=== PATIENT | male | born 1960 | race Caucasian/White ===

== ENCOUNTER → 2018-05-05 14:54 | Outpatient (CLI) | payer BC, SELFPAY ==
[2018-05-05 15:36] LABS: Absolute Lymphocyte Count 1.82 X10^3/ul (0.83-4.51); Absolute Neutrophil Count 4.4 X10^3/uL (2.0-7.7); Basophil# 0.03 X10^3/uL; Basophil% 0.4 % (0-1); Eosinophil# 0.08 X10^3/uL; Eosinophils% 1.1 % (0-5); Hematocrit 45.1 % (40-54); Hemoglobin 15.3 g/dl (13.0-16.5); Lymphocyte # 1.82 X10^3/ul (4.0); Mean Corp Hgb Conc 33.9 g/gl (32-36); Mean Corpuscular Hgb 31.7 pg (27.0-32.0); Mean Corpuscular Volume 93.4 fL (80-94); Mean Platelet Vol. 10.2 fl (6.2-12.0); Monocyte# 0.67 X10^3/uL; Monocyte% 9.6 % (0-10); Neutrophil # 4.39 X10^3/uL (2.7-7.7); Neutrophil % 62.8 % (47-70); Platelet Count 328 K/mm3 (150-450); RBC Distribution Width CV 12.6 % (11.6-14.6); RBC Distribution Width SD 43.2 fl (35.1-43.9); Red Blood Count 4.83 M/mm3 (4.6-6.2)
[2018-05-05 15:38] LABS: POSITIVE COUNT NO; POSITIVE DIFFERENTIAL NO; POSITIVE MORPHOLOGY NO
[2018-05-05 15:43] LABS: ALB/GLOB Ratio 0.9 RATIO (0.9-2.4); AST(SGOT) 102 U/L (15-37); Alanine Aminotransfer ALT/SGPT 111 U/L (16-61); Albumin, Serum 3.6 g/dL (3.2-5.0); Alkaline Phosphatase 121 U/L (45-117); Anion Gap 9 (5-15); BUN 9 mg/dL (7-18); Chloride 105 mmol/L (98-107); EST Glomerular Filtration Rate 83 mL/min (>60); Est Glom Filt Rate - Afr Amer 100 mL/min (>60); Globulin 4.1 g/dL (2.2-4.2); Glucose 103 mg/dL (74-106); Potassium 3.8 mmol/L (3.5-5.1); Protein, Total 7.7 g/dL (6.4-8.2); Sodium Level 139 mmol/L (136-145)
--- OUTSIDE RECORDS SUMMARY | 2018-06-21 12:16 | XMS RPT_ITS ---
:1960 Author Organization [facility] Care Team Providers Name Role Phone Aashish Arcos Attending Unavailable Lida Crenshaw Primary Care Unavailable Aashish Arcos Attending Unavailable Aashish Arcos Referring Unavailable Lida Crenshaw Primary Care Unavailable PROBLEMS PROBLEMS DATE TYPE CONDITION / CODE ATTENDING STATUS SOURCE 05/06/2018 Unknown 562.11 - Aashish Arcos Diverticulitis of E Community colon (without Hospital mention of Repository hemorrhage) / 562.11(ICD-9) 05/06/2018 Unknown K57.92 - Aashish Arcos Diverticulitis of E [facility] intestine, part Hospital unspecified, without Repository perforation or abscess without bleeding / K57.92(ICD-10) PROCEDURES PROCEDURES No Procedure Records FoundRESULTS RESULTS ABDOMEN/PELVIS WITH Observed: 05/05/2018 Status: F Source: [place] CONTR[facility] 3:36 PM [facility] REPOSITORY [facility] Imaging Services [address] [place] [address] Abdomen/Pelvis WITH Contrast MR#: [id number] Acct: [id number] Name: MEEKA CARDONA Rep #: [id number] : 1960 M 58 From: Leni Lay MD PCP: Lida Crenshaw MD Status: REG CLI Study: Abdomen/Pelvis WITH Contrast Date of Exam: 05/05/18 Exam# [id number] Ordering Dr: Aashish Arcos MD STUDY: CT ABDOMEN AND PELVIS WITH CONTRAST REASON FOR EXAM: Male, 58 years old. Lower abdominal pain. RADIATION DOSAGE (If Supplied By Facility): CTDIvol = ( 10.80 ) mGy, DLP = ( 1128.41 ) mGycm TECHNIQUE: Transaxial images were obtained from the dome of the diaphragm to the symphysis pubis without oral contrast. 100 ml of Isovue 300 contrast was administered. Sagittal and coronal images were reconstructed. Individualized dose optimization techniques were used for this CT. COMPARISON: None. FINDINGS: The visualized lung bases are unremarkable. The visualized portions of the heart are within normal limits. Normal liver. Normal gallbladder and extrahepatic biliary system. There is a benign calcified granuloma of the spleen. Normal pancreas. Subcentimeter cyst of the right kidney. Negative for hydronephrosis or evidence of ureteral stones. Multiple subcentimeter cysts of the left kidney. Negative for hydronephrosis or evidence of ureteral stones. Normal right adrenal gland. Normal left adrenal gland. Normal visualized stomach. Normal small intestine. Normal colon. The appendix is visualized and appears normal. There is diffuse atherosclerotic calcification of the abdominal aorta, without a demonstrated aneurysm. Normal inferior vena cava. Normal retroperitoneum. Normal urinary bladder. Small fatty right inguinal hernia. Minimal fatty umbilical hernia. Normal osseous structures. CT/Abdomen/Pelvis WITH Contrast IMPRESSION: No acute bowel related findings. Negative for evidence of obstruction, perforation or inflammatory bowel changes. There is no diverticulosis or diverticulitis. A normal appendix is identified. Subcentimeter simple renal cysts bilaterally. Otherwise normal sized kidneys without hydronephrosis. Unremarkable liver spleen pancreas and a nondistended gallbladder. Electronically Signed: Leni Lay MD at 19:12 EST , Service support , CC: Lida Crenshaw MD; Aashish Arcos MD Sprinkler Fitter: Signed CBC W/DIFF, AUTOMATED Collected: 05/05/2018 Status: F Source: [place] 3:03 PM [facility] TYPE CODE TESTS RESULT OUT OF RANGE REFERENCE UNITS LAB L100.1000 4.4-11.0 K/mm3 Normal WBC 7.0 LAB L100.1200 4.6-6.2 M/mm3 Normal RBC 4.83 LAB L100.1300 13.0-16.5 g/dl Normal HGB 15.3 LAB L100.1400 40-54 % Normal HCT 45.1 LAB L100.1500 80-94 fL Normal MCV 93.4 LAB L100.1600 27.0-32.0 pg Normal MCH 31.7 LAB L100.1700 32-36 g/gl Normal MCHC 33.9 LAB L100.1810 11.6-14.6 % Normal RDW CV 12.6 LAB L100.1820 35.1-43.9 fl Normal RDW SD 43.2 LAB L100.1900 150-450 K/mm3 Normal PLT 328 LAB L100.2000 6.2-12.0 fl Normal MPV 10.2 LAB L100.2100 47-70 % Normal NEUT% 62.8 LAB L100.2200 19-41 % Normal LY% 26.0 LAB L100.2300 0-10 % Normal MONO% 9.6 LAB L100.2400 0-5 % Normal EO% 1.1 LAB L100.2500 0-1 % Normal BASO% 0.4 LAB L100.2550 0.0-0.9 % Normal IM GRAN % 0.100 Result Comment: IG% - Immature Granulocytes (promyelocytes, myelocytes and metamyelocytes) > 1% indicates that a LEFT SHIFT is Present. LAB L100.2620 2.0-7.7 X10 3/uL Normal Absolute Neut 4.4 LAB L100.2720 0.83-4.51 X10 3/ul Normal Absolute Lymph 1.82 Performed By: #### L100.0100, L500.4050 #### [facility] [address] [place], [address] COMPREHENSIVE METABOLIC Collected: 05/05/2018 Status: F Source: [place] 3:03 PM [facility] TYPE CODE TESTS RESULT OUT OF RANGE REFERENCE UNITS LAB L501.0100 74-106 mg/dL Normal GLU 103 Result Comment: Fasting Glucose result from 100 to 125 mg/dL suggests IMPAIRED HOMEOSTASIS per A.D.A. criteria. Please note revised GLUCOSE reference range effective 2017. LAB L501.1000 7-18 mg/dL Normal BUN 9 LAB L501.1100 0.70-1.30 mg/dL Normal CREAT,SERUM 1.00 Result Comment: The validity of the calculated GFR AND GFRAA in patients over 70 years has not been determined. Clinical correlation is essential. LAB L501.1110 >60 mL/min Normal EST GFR 83 Result Comment: Non- GFR Calc LAB L501.1115 >60 mL/min Normal EST GFR - AA 100 Result Comment: GFR Calc LAB L501.1300 10-20 RATIO Low BUN/CRE 9.0 LAB L501.1500 6.4-8.2 g/dL Normal T PROT 7.7 LAB L501.1800 3.2-5.0 g/dL Normal ALB 3.6 LAB L501.1950 2.2-4.2 g/dL Normal GLOB 4.1 LAB L501.2000 0.9-2.4 RATIO Normal A/G 0.9 LAB L501.2200 8.5-10.1 mg/dL Normal CA 9.0 LAB L501.4100 15-37 U/L High AST 102 LAB L501.4305 45-117 U/L High ALK P 121 LAB L501.4405 16-61 U/L High ALT 111 LAB L501.4600 0.20-1.00 mg/dL Normal T BILI 0.70 LAB L501.5300 136-145 mmol/L Normal NA 139 LAB L501.5600 3.5-5.1 mmol/L Normal K 3.8 LAB L501.5900 98-107 mmol/L Normal CL 105 LAB L501.6100 21.0-32.0 mmol/L Normal CO2 25.0 LAB L501.6200 5-15 Normal GAP 9 Performed By: #### L100.0100, L500.4050 #### [facility] [address] [place], [address] ALLERGIES ALLERGIES DATE TYPE / CODE NAME / CODE REACTION SEVERITY SOURCE 12/01/2013 Drug No Known Unknown [facility] Allergy/4160 Allergies/F00 Hospital 53455(SNOMED 6494284(RXNOR Repository CT) M) ENCOUNTERS ENCOUNTERS ADMIT/DISCHARGE ACCOUNT ADMITTING ENCOUNTER LOCATION SOURCE NUMBER CLASS 05/05/2018 [id number] Ambulatory [place] 8 [facility] ing:CT Repository 05/05/2018 [id number] Amb[place] 1 [facility] ing:MFPLAB Repository PAYERS PAYERS ENCOUNTER GUARANTOR PAYER SUBSCRIBER SOURCE 05/05/2018 EMEKA Mccain Primary BETHANY [id number] Insurance:[facility]: [facility] y Number: [id number] [id number] Repository [address]Kfs: (330) Date:7042-64-49[phone] () [id number], [place] [address]FM: 05/05/2018 Secondary NOT GIVENUNK [place] Insurance:SELF PAY [facility] Number: Effective Repository Date:2018-05-05 05/05/2018 EMEKA Mccain Primary BETHANY Song [id number] Insurance:[facility]: [facility] y Number: [id number] [id number] Repository [address]Yva: (330) Date:4025-52-45[phone] () [id number], [place] [address]IW: 05/05/2018 Secondary NOT GIVENUNK [place] Insurance:SELF PAY [facility] Number: Effective Repository Date:2018-05-05
== END ==
PROVIDERS: Family Provider Family Medicine; PCP Family Medicine; Visit Provider Family Medicine
DX: K57.92 Diverticulitis of intestine, part unspecified, without perforation or abscess without bleeding (principal)
CPT/HCPCS: 36415; 80053; 85025

== ENCOUNTER → 2018-05-05 15:24 | Outpatient (CLI) | payer BC, SELFPAY ==
[2013-12-01 17:41] VITALS: BMI 33.0
--- NOTE | 2018-05-05 15:36 | CT_ITS ---
STUDY: CT ABDOMEN AND PELVIS WITH CONTRAST REASON FOR EXAM: Male, 58 years old. Lower abdominal pain. RADIATION DOSAGE (If Supplied By Facility): CTDIvol = ( 10.80 ) mGy, DLP = ( 1128.41 ) mGycm TECHNIQUE: Transaxial images were obtained from the dome of the diaphragm to the symphysis pubis without oral contrast. 100 ml of Isovue 300 contrast was administered. Sagittal and coronal images were reconstructed. Individualized dose optimization techniques were used for this CT. COMPARISON: None. FINDINGS: The visualized lung bases are unremarkable. The visualized portions of the heart are within normal limits. Normal liver. Normal gallbladder and extrahepatic biliary system. There is a benign calcified granuloma of the spleen. Normal pancreas. Subcentimeter cyst of the right kidney. Negative for hydronephrosis or evidence of ureteral stones. Multiple subcentimeter cysts of the left kidney. Negative for hydronephrosis or evidence of ureteral stones. Normal right adrenal gland. Normal left adrenal gland. Normal visualized stomach. Normal small intestine. Normal colon. The appendix is visualized and appears normal. There is diffuse atherosclerotic calcification of the abdominal aorta, without a demonstrated aneurysm. Normal inferior vena cava. Normal retroperitoneum. Normal urinary bladder. Small fatty right inguinal hernia. Minimal fatty umbilical hernia. Normal osseous structures. CT/Abdomen/Pelvis WITH Contrast IMPRESSION: No acute bowel related findings. Negative for evidence of obstruction, perforation or inflammatory bowel changes. There is no diverticulosis or diverticulitis. A normal appendix is identified. Subcentimeter simple renal cysts bilaterally. Otherwise normal sized kidneys without hydronephrosis. Unremarkable liver spleen pancreas and a nondistended gallbladder. Electronically Signed: Leni Lay MD at 19:12 EST , Service support ,
--- OUTSIDE RECORDS SUMMARY | 2018-06-21 12:53 | XMS RPT_ITS ---
[...] K57.92 - Aashish Arcos Diverticulitis of E [facility] intestine, part Hospital unspecified, without Repository perforation or abscess without bleeding / K57.92(ICD-10) PROCEDURES PROCEDURES No Procedure Records FoundRESULTS RESULTS ABDOMEN/PELVIS WITH Observed: 05/05/2018 Status: F Source: [place] [facility] 3:36 PM [facility] RE[facility]IT[facility] Imaging Services [address] [place] [address] Abdomen/Pelvis WITH Contrast MR#: [id number] Acct: [id number] Name: EMEKA CARDONA Rep #: [id number] : 1960 M 58 From: Leni Lay MD PCP: Lida Crenshaw MD Status: REG CLI Study: Abdomen/Pelvis WITH Contrast Date of Exam: 05/05/18 Exam# [id number] Ordering Dr: Aashish Arcos MD STUDY: CT [...] CC: Lida Crenshaw MD; Aashish Arcos MD Nurse First Aid: Signed CBC W/DIFF, AUTOMATED Collected: 05/05/2018 Status: [...] 1.82 Performed By: #### L100.0100, L500.4050 #### [facility] [address] [place], [address] COMPREHENSIVE METABOLIC Collected: 05/05/2018 Status: [...] 9 Performed By: #### L100.0100, L500.4050 #### [facility] [address] [place], [address] ALLERGIES ALLERGIES DATE TYPE / CODE NAME / CODE REACTION SEVERITY SOURCE 12/01/2013 Drug No Known Unknown [facility] Allergy/4160 Allergies/F00 Hospital 83909(SNOMED 6463256(RXNOR Repository CT) M) ENCOUNTERS ENCOUNTERS ADMIT/DISCHARGE ACCOUNT ADMITTING ENCOUNTER LOCATION SOURCE NUMBER CLASS 05/05/2018 [id number] Ambulatory [place] Krystal 8 [facility] ing:CT Repository 05/05/2018 [id number] Amb[place] 1 [facility] ing:MFPLAB Repository PAYERS PAYERS ENCOUNTER GUARANTOR PAYER SUBSCRIBER SOURCE 05/05/2018 EMEKA Mccain Primary BETHANY [id number] Insurance:[facility]: [facility] y Number: [id number] [id number] Repository [address]Nvr: (330) Date:[id number] [phone] () [id number], [place] [address]PX: 05/05/2018 Secondary NOT GIVENUNK [place] Insurance:SELF PAY [facility] Number: Effective Repository Date:2018-05-05 05/05/2018 EMEKA Mccain Primary BETHANY Song [id number] Insurance:[facility]: [facility] y Number: [id number] [id number] Repository [address]Gnv: (330) Date:6357-54-11[phone] () [id number], [place] [address]UL: 05/05/2018 Secondary NOT GIVENUNK [place] Insurance:SELF PAY [facility] Number: Effective Repository Date:2018-05-05
== END ==
PROVIDERS: Family Provider Family Medicine; PCP Family Medicine; Referring Provider Family Medicine; Visit Provider Family Medicine
DX: K57.92 Diverticulitis of intestine, part unspecified, without perforation or abscess without bleeding (principal)
CPT/HCPCS: 74177; Q9967

== ENCOUNTER → 2019-02-24 08:16 | Outpatient (CLI) | payer BC, SELFPAY ==
[2019-02-24 10:34] LABS: Anion Gap 9 (5-15); BUN 17 mg/dL (7-18); BUN/Creat Ratio 13.4 RATIO (10-20); Calcium,Total 8.8 mg/dL (8.5-10.1); Chloride 104 mmol/L (98-107); Creatinine, Serum 1.27 mg/dL (0.70-1.30); EST Glomerular Filtration Rate 62 mL/min (>60); Est Glom Filt Rate - Afr Amer 75 mL/min (>60); Glucose 100 mg/dL (74-106); Potassium 3.5 mmol/L (3.5-5.1); Sodium Level 138 mmol/L (136-145)
== END ==
PROVIDERS: Family Provider Family Medicine; PCP Family Medicine; Referring Provider Family Medicine; Visit Provider Family Medicine
DX: I10 Essential (primary) hypertension (principal)
CPT/HCPCS: 36415; 80048

== ENCOUNTER → 2019-08-14 11:26 | Outpatient (CLI) | payer BC, SELFPAY ==
[2013-12-01 17:41] VITALS: BMI 33.0
[2019-08-14 12:56] LABS: Absolute Lymphocyte Count 1.66 X10^3/uL (0.83-4.51); Absolute Neutrophil Count 4.6 X10^3/uL (2.0-7.7); Basophil# 0.04 X10^3/uL; Basophil% 0.6 % (0-1); Eosinophil# 0.17 X10^3/uL; Eosinophils% 2.4 % (0-5); Hematocrit 42.9 % (40-54); Hemoglobin 14.9 g/dL (13.0-16.5); Lymphocyte # 1.66 X10^3/ul (4.0); Lymphocyte % 23.5 % (19-41); Mean Corp Hgb Conc 34.7 g/dL (32-36); Mean Corpuscular Hgb 31.9 pg (27.0-32.0); Mean Corpuscular Volume 91.9 fL (80-94); Monocyte# 0.61 X10^3/uL; Monocyte% 8.6 % (0-10); NRBC Flagged by Analyzer 0 % (0-5); Neutrophil # 4.56 X10^3/uL (2.7-7.7); Neutrophil % 64.5 % (47-70); Platelet Count 307 K/mm3 (150-450); RBC Distribution Width CV 12.9 % (11.6-14.6); RBC Distribution Width SD 42.5 fl (35.1-43.9); Red Blood Count 4.67 M/mm3 (4.6-6.2); White Blood Count 7.1 K/mm3 (4.4-11.0)
[2019-08-14 13:39] LABS: Anion Gap 8 (5-15); BUN 18 mg/dL (7-18); BUN/Creat Ratio 16.7 RATIO (10-20); Calcium,Total 9.1 mg/dL (8.5-10.1); Chloride 104 mmol/L (98-107); Cholesterol 247 mg/dL (200); Creatinine, Serum 1.08 mg/dL (0.70-1.30); EST Glomerular Filtration Rate 75 mL/min (>60); Est Glom Filt Rate - Afr Amer 91 mL/min (>60); Glucose 86 mg/dL (74-106); High Density Lipoprotein 44 mg/dL; Potassium 3.6 mmol/L (3.5-5.1); Sodium Level 136 mmol/L (136-145); Triglycerides 140 mg/dL; Very Low Density Lipoprotein 28 mg/dL (5-40)
== END ==
PROVIDERS: PCP Family Medicine; Referring Provider Family Medicine; Visit Provider Family Medicine
DX: Z00.00 Encounter for general adult medical examination without abnormal findings (principal); I10 Essential (primary) hypertension; K21.9 Gastro-esophageal reflux disease without esophagitis
CPT/HCPCS: 36415; 80048; 80061; 84153; 85025; G0103

== ENCOUNTER → 2019-10-27 09:16 | Outpatient (CLI) | payer BC, SELFPAY ==
[2013-12-01 17:41] VITALS: BMI 33.0
[2019-10-27 12:30] LABS: Absolute Lymphocyte Count 1.29 X10^3/uL (0.83-4.51); Absolute Neutrophil Count 5.6 X10^3/uL (2.0-7.7); Basophil# 0.02 X10^3/uL; Basophil% 0.3 % (0-1); Eosinophil# 0.13 X10^3/uL; Eosinophils% 1.7 % (0-5); Hematocrit 38.4 % (40-54); Hemoglobin 13.2 g/dL (13.0-16.5); Lymphocyte # 1.29 X10^3/ul (4.0); Mean Corp Hgb Conc 34.4 g/dL (32-36); Mean Corpuscular Volume 93.2 fL (80-94); Mean Platelet Vol. 10.3 fl (6.2-12.0); Monocyte# 0.54 X10^3/uL; Monocyte% 7.1 % (0-10); NRBC Flagged by Analyzer 0 % (0-5); Neutrophil % 73.6 % (47-70); Platelet Count 321 K/mm3 (150-450); RBC Distribution Width CV 12.4 % (11.6-14.6); RBC Distribution Width SD 42.1 fl (35.1-43.9); Red Blood Count 4.12 M/mm3 (4.6-6.2); White Blood Count 7.6 K/mm3 (4.4-11.0)
[2019-10-27 13:09] LABS: Anion Gap 10 (5-15); BUN 13 mg/dL (7-18); BUN/Creat Ratio 11.4 RATIO (10-20); Chloride 101 mmol/L (98-107); Cholesterol 160 mg/dL (200); Creatinine, Serum 1.14 mg/dL (0.70-1.30); EST Glomerular Filtration Rate 70 mL/min (>60); Est Glom Filt Rate - Afr Amer 85 mL/min (>60); Glucose 115 mg/dL (74-106); High Density Lipoprotein 42 mg/dL; Potassium 3.5 mmol/L (3.5-5.1); Sodium Level 135 mmol/L (136-145); Triglycerides 194 mg/dL; Very Low Density Lipoprotein 39 mg/dL (5-40)
== END ==
PROVIDERS: PCP Family Medicine; Referring Provider Family Medicine; Visit Provider Family Medicine
DX: I10 Essential (primary) hypertension (principal); K21.9 Gastro-esophageal reflux disease without esophagitis
CPT/HCPCS: 36415; 80048; 80061; 85025

== ENCOUNTER → 2020-06-11 09:53 | Outpatient (CLI) | payer BC, SELFPAY ==
[2013-12-01 17:41] VITALS: BMI 33.0
[2020-06-11 12:23] LABS: Anion Gap 9 (5-15); BUN 14 mg/dL (7-18); BUN/Creat Ratio 11.5 RATIO (10-20); Calcium,Total 8.8 mg/dL (8.5-10.1); Chloride 106 mmol/L (98-107); Creatinine, Serum 1.22 mg/dL (0.70-1.30); EST Glomerular Filtration Rate 65 mL/min (>60); Est Glom Filt Rate - Afr Amer 78 mL/min (>60); Glucose 86 mg/dL (74-106); Potassium 3.8 mmol/L (3.5-5.1); Sodium Level 138 mmol/L (136-145)
== END ==
PROVIDERS: PCP Family Medicine; Referring Provider Family Medicine; Visit Provider Family Medicine
DX: I10 Essential (primary) hypertension (principal)
CPT/HCPCS: 36415; 80048

== ENCOUNTER 2020-08-08 14:27 | Outpatient (RCR) | payer BC, SELFPAY ==
[2013-12-01 17:41] VITALS: BMI 33.0
[2020-08-08] MEDS: COVID-19 VACC, MRNA(PFIZER)/PF 30 MCG/0.3 ML SYRINGE IM (09:54)
[2020-08-29] MEDS: COVID-19 VACC, MRNA(PFIZER)/PF 30 MCG/0.3 ML SYRINGE IM (09:24)
== END 2020-08-08 23:59 ==
LOC: IMMUN 14:27
PROVIDERS: PCP Family Medicine; Visit Provider Family Medicine
DX: Z23 Encounter for immunization (principal)
CPT/HCPCS: 0001A; 0002A; 91300

== ENCOUNTER → 2020-12-10 11:35 | Outpatient (CLI) | payer BC, SELFPAY ==
[2013-12-01 17:41] VITALS: BMI 33.0
[2020-12-10 15:50] LABS: AST(SGOT) 32 U/L (15-37); Alanine Aminotransfer ALT/SGPT 38 U/L (16-61); Anion Gap 9 (5-15); BUN 16 mg/dL (7-18); BUN/Creat Ratio 13.3 RATIO (10-20); Calcium,Total 8.8 mg/dL (8.5-10.1); Chloride 102 mmol/L (98-107); Cholesterol 165 mg/dL (200); EST Glomerular Filtration Rate 66 mL/min (>60); Est Glom Filt Rate - Afr Amer 80 mL/min (>60); Glucose 93 mg/dL (74-106); High Density Lipoprotein 47 mg/dL; Magnesium 1.9 mg/dL (1.6-2.6); PSA,Total - Annual Screen 0.42 ng/mL (0.00-4.00); Potassium 3.7 mmol/L (3.5-5.1); Sodium Level 133 mmol/L (136-145); Triglycerides 172 mg/dL; Very Low Density Lipoprotein 34 mg/dL (5-40)
== END ==
PROVIDERS: PCP Family Medicine; Visit Provider Family Medicine
DX: Z00.00 Encounter for general adult medical examination without abnormal findings (principal); I10 Essential (primary) hypertension; K21.9 Gastro-esophageal reflux disease without esophagitis; E78.5 Hyperlipidemia, unspecified
CPT/HCPCS: 36415; 80048; 80061; 83735; 84153; 84450; 84460; G0103

== ENCOUNTER → 2020-12-11 12:12 | Outpatient (CLI) | payer BC, SELFPAY ==
[2013-12-01 17:41] VITALS: BMI 33.0
[2020-12-11 15:43] LABS: Microalbumin,Random Urine < 5.0 mg/L (NO RANGE EST.)
== END ==
PROVIDERS: PCP Family Medicine; Visit Provider Family Medicine
DX: I10 Essential (primary) hypertension (principal)
CPT/HCPCS: 82043; 82570

== ENCOUNTER → 2021-04-11 | Outpatient (CLI) | payer BC, SELFPAY | END | disposition home or self-care (01) | PROVIDERS: PCP Family Medicine; Visit Provider Family Medicine | DX: R05.9 Cough, unspecified (principal) | CPT/HCPCS: 87635; U0005; U0003 ==

== ENCOUNTER → 2021-12-15 | Outpatient (CLI) | payer BC, SELFPAY ==
[2021-12-15 12:28] LABS: AST(SGOT) 52 U/L (15-37); Alanine Aminotransfer ALT/SGPT 40 U/L (16-61); Anion Gap 11 (5-15); BUN 31 mg/dL (7-18); BUN/Creat Ratio 18.5 RATIO (10-20); Calcium,Total 9.2 mg/dL (8.5-10.1); Chloride 104 mmol/L (98-107); Cholesterol 180 mg/dL (200); Creatinine, Serum 1.68 mg/dL (0.70-1.30); EST Glomerular Filtration Rate 45 mL/min (>60); Est Glom Filt Rate - Afr Amer 54 mL/min (>60); Glucose 110 mg/dL (74-106); High Density Lipoprotein 50 mg/dL; Sodium Level 138 mmol/L (136-145); Triglycerides 197 mg/dL; Very Low Density Lipoprotein 39 mg/dL (5-40)
== END | disposition home or self-care (01) ==
LOC: MFPLAB 10:22
PROVIDERS: PCP Family Medicine; Referring Provider Family Medicine; Visit Provider Family Medicine
DX: Z00.00 Encounter for general adult medical examination without abnormal findings (principal); E78.5 Hyperlipidemia, unspecified; I10 Essential (primary) hypertension
CPT/HCPCS: 36415; 80048; 80061; 84450; 84460

== ENCOUNTER → 2022-12-22 | Outpatient (CLI) | payer BC, SELFPAY ==
[2022-12-22 12:27] LABS: AST(SGOT) 23 U/L (15-37); Alanine Aminotransfer ALT/SGPT 19 U/L (16-61); Anion Gap 5 (5-15); BUN 16 mg/dL (7-18); BUN/Creat Ratio 11.7 RATIO (10-20); Calcium,Total 8.7 mg/dL (8.5-10.1); Chloride 108 mmol/L (98-107); Cholesterol 134 mg/dL (200); Creatinine, Serum 1.37 mg/dL (0.70-1.30); EST Glomerular Filtration Rate 56 mL/min (>60); Est Glom Filt Rate - Afr Amer 68 mL/min (>60); Glucose 99 mg/dL (74-106); High Density Lipoprotein 44 mg/dL; PSA,Total - Annual Screen 0.38 ng/mL (0.00-4.00); Sodium Level 137 mmol/L (136-145); Triglycerides 100 mg/dL; Very Low Density Lipoprotein 20 mg/dL (5-40)
== END | disposition home or self-care (01) ==
PROVIDERS: PCP Family Medicine; Visit Provider Family Medicine
DX: Z12.5 Encounter for screening for malignant neoplasm of prostate (principal); E78.5 Hyperlipidemia, unspecified; I10 Essential (primary) hypertension
CPT/HCPCS: 36415; 80048; 80061; 84153; 84450; 84460; G0103

== ENCOUNTER 2023-02-09 18:34 | Observation (INO) | payer BC, SELFPAY ==
[2023-02-09] VITALS (8 sets, daily range): BP systolic 131–150; BP diastolic 63–83; PULSE 92–106; RESP 17–25; TEMP 36.3–37; O2SAT 96–99; BMI 42.1; BMI 42.6
--- NOTE | 2023-02-09 18:47 | EKG12_ITS ---
Test Reason : SOB Blood Pressure : / mmHG Vent. Rate : 098 BPM Atrial Rate : 098 BPM P-R Int : 172 ms QRS Dur : 082 ms QT Int : 344 ms P-R-T Axes : 047 012 000 degrees QTc Int : 439 ms Normal sinus rhythm Nonspecific ST abnormality Abnormal ECG Confirmed by JOVI OAKLEY, JASPAL ([id number]), design editor PASTORA FINNEGAN ([id number]) on 02/15/2023 2:07:14 PM Referred By: Confirmed By:ZUNILDA ESPANA MD
[2023-02-09 19:55] LABS: Absolute Lymphocyte Count 1.53 X10^3/uL (0.83-4.51); Absolute Neutrophil Count 6.8 X10^3/uL (2.0-7.7); Basophil# 0.03 X10^3/uL; Basophil% 0.3 % (0-1); Eosinophil# 0.17 X10^3/uL; Eosinophils% 1.9 % (0-5); Lymphocyte # 1.53 X10^3/ul (0.83-4.51); Lymphocyte % 16.7 % (19-41); Mean Corp Hgb Conc 26.8 g/dL (32-36); Mean Corpuscular Hgb 17.9 pg (27.0-32.0); Mean Corpuscular Volume 66.9 fL (80-94); Mean Platelet Vol. 8.9 fl (6.2-12.0); Monocyte# 0.58 X10^3/uL; Monocyte% 6.3 % (0-10); NRBC Flagged by Analyzer 0.3 % (0-5); Neutrophil # 6.82 X10^3/uL (2.7-7.7); Neutrophil % 74.3 % (47-70); POSITIVE COUNT YES; Platelet Count 541 K/mm3 (150-450); RBC Distribution Width CV 18.6 % (11.6-14.6); RBC Distribution Width SD 45.1 fl (35.1-43.9); Red Blood Count 3.29 M/mm3 (4.6-6.2); White Blood Count 9.2 K/mm3 (4.4-11.0)
[2023-02-09 20:10] LABS: Hemoglobin 5.9 g/dL (13.0-16.5)
[2023-02-09 20:13] LABS: Platelet Estimate MOD INC (ADEQ)
[2023-02-09 20:14] LABS: Anion Gap 4 (5-15); BUN 16 mg/dL (7-18); BUN/Creat Ratio 13.1 RATIO (10-20); Calcium,Total 8.5 mg/dL (8.5-10.1); Chloride 105 mmol/L (98-107); Creatinine, Serum 1.22 mg/dL (0.70-1.30); EST Glomerular Filtration Rate 64 mL/min (>60); Est Glom Filt Rate - Afr Amer 78 mL/min (>60); Estimated Creatinine Clearance 66.48 ml/min; Glucose 119 mg/dL (74-106); Potassium 3.8 mmol/L (3.5-5.1); Sodium Level 138 mmol/L (136-145); Troponin-I HS 6 pg/mL (3.0-78.0)
[2023-02-09 20:24] LABS: Anisocytosis 1+; Hypochromasia 1+; Microcytosis 1+; Red Cell Morphology N CHROM NORMAL (NORM C&C)
[2023-02-09 20:25] LABS: Ovalocyte RARE
--- NOTE | 2023-02-09 20:45 | RAD_ITS ---
STUDY: X-RAY CHEST REASON FOR EXAM: Male, 62 years old. shortness of breath TECHNIQUE: Single frontal view of the chest. COMPARISON: December 01, 2013 FINDINGS: The lungs are clear and expanded. There is no demonstrated pleural abnormality. Normal size heart. Normal mediastinum and thania. Normal visualized pulmonary arteries. Normal visualized aortic arch and descending thoracic aorta. Normal visualized thoracic spine. Normal visualized ribs, clavicles, and shoulders. There is no demonstrated abnormality of the visualized soft tissue structures of the upper abdomen. RAD/Chest 1 View (Portable) IMPRESSION: Normal x-ray examination of the chest. Electronically Signed: Leon Madera MD at 22:13 EDT ,
--- NOTE | 2023-02-09 21:31 | PCM.HP.STD ---
HPI - General General Date of Admission: 02/09/23 Date of Service: 02/09/23 Chief Complaint: Severe anemia HPI Narrative JUSTIN CARDONA, is a 62 M with history of hypertension, hyperlipidemia and morbid obesity who presented to [facility] ED on 02/09/2023 with generalized weakness and shortness of breath. Patient seen at bedside, present. Patient sitting comfortably in bed, alert and oriented, conversing normally, no acute distress. Patient currently denies any acute pain or discomfort. Denies any chest pain or shortness of breath at rest. Patient and state that the patient has been progressively having worsening shortness of breath and chest tightness over the last several weeks to months. Patient was on the [facility] [email or web address] last week and was able to attend every day, but his activity was significantly limited. Patient notably denies any dark or bloody bowel movements. Denies any hematemesis. Denies any change in stool consistency. He notably had a normal colonoscopy about 3 to 4 years ago per his report. He does have a history of acid reflux, however this has seemingly been fairly well controlled with omeprazole at home. Denies any abdominal pain or discomfort. No other acute concerns at this time. Vitals in the ED notable for heart rate 90s to 100s (sinus rhythm), mild hypertension with systolic BPs in 130s to 140s, afebrile, no other abnormalities. Labs notable for hemoglobin 5.9, MCV 66, iron 14, iron saturation 4%, ferritin 5, normal BMP, normal LFTs. UA was normal. CT chest abdomen pelvis without contrast showed bilateral nonobstructing nephroliths, otherwise no abnormalities. Chest x-ray was normal. [facility] Medical History Hypercholesteremia Hypertension Home Medications amlodipine 5 mg tablet 5 mg PO QHS 02/09/23 [History Last Taken Unknown] atorvastatin 20 mg tablet 20 mg PO DAILY 02/09/23 [History Last Taken Unknown] lisinopril 20 mg-hydrochlorothiazide 12.5 mg tablet 2 tab PO DAILY 02/09/23 [History Last Taken Unknown] Allergy/AdvReac Type Severity Reaction Status Date / Time No Known Allergies Allergy Verified 02/09/23 18:42 Social History Smoking Status: Never smoker ROS Constitutional Constitutional: Reports fatigue and malaise; Denies chills, fever(s) or weakness Eyes Eyes: Denies change in vision Cardiovascular Cardiovascular: Reports chest pain and lightheadedness; Denies edema or syncope Respiratory/Chest Respiratory/Chest: Denies cough Gastrointestinal Gastrointestinal: Denies abdominal pain, constipation, diarrhea, hematemesis, hematochezia, melena, nausea or vomiting Genitourinary Genitourinary: Denies dysuria Hematologic/Lymphatic Hematologic/Lymphatic: Denies easy bleeding or easy bruising Vital Signs Vital Signs Vital Signs: 02/09/23 18:44 02/09/23 20:03 02/09/23 20:03 Temperature 98.6 F Temperature Source Temporal Pulse Rate 106 H 101 H Respiratory Rate 18 24 H Respiratory Effort Respiratory Depth Respiratory Pattern Blood Pressure 131/71 H 144/81 H Blood Pressure Mean 91 102 Pulse Ox 99 98 98 Oxygen Delivery Method Room Air Room Air Room Air 02/09/23 20:03 02/09/23 20:03 02/09/23 20:07 Temperature Temperature Source Pulse Rate Respiratory Rate 17 Respiratory Effort Normal Normal Respiratory Depth Normal Respiratory Pattern Normal Blood Pressure Blood Pressure Mean Pulse Ox 99 Oxygen Delivery Method Room Air Room Air Weight Weight: 133.175 kg Body Mass Index (BMI) 42.1 Physical Exam Const alert, oriented x3, no apparent distress and well nourished Constitutional Narrative: Pleasant male, morbidly obese, sitting comfortably in bed, conversing normally, no acute distress. Does appear somewhat pale. General Appearance: cooperative, comfortable, well kempt and well developed HEENT normocephalic, head/scalp atraumatic, hearing grossly normal bilaterally, nasal mucous membranes and turbinates normal and moist oral mucous membranes Eyes PERRL, EOMs intact bilaterally and conjunctivae normal Neck full ROM, no lymphadenopathy and supple Lymph Lymphatic: no lymphadenopathy noted Chest inspection of chest normal Resp normal respiratory effort, normal air movement, no use of accessory muscles and clear to auscultation bilaterally Cardio regular rate, regular rhythm, no murmurs and peripheral pulses 2+ throughout GI normal to inspection, nondistended, normoactive bowel sounds, soft to palpation, non-tender and non-distended Back/Spine normal ROM Extremity normal to inspection, full ROM and no pedal edema Skin no rashes or lesions noted Psych mental status grossly normal Results Lab / Micro Data 02/09/23 19:30 02/09/23 19:30 Labs: Laboratory Results - last 24 hr 02/09/23 19:30: WBC 9.2, RBC 3.29 L, Hgb 5.9 L*, Hct 22.0 L, MCV 66.9 L, MCH 17.9 L, MCHC 26.8 L, RDW Std Deviation 45.1 H, RDW Coeff of Jennifer 18.6 H, Plt Count 541 H, MPV 8.9, Immature Gran % (Auto) 0.500, Neut % (Auto) 74.3 H, Lymph % (Auto) 16.7 L, [place] % (Auto) 6.3, Eos % (Auto) 1.9, Baso % (Auto) 0.3, Absolute Neuts (auto) 6.8, Absolute Lymphs (auto) 1.53, Nucleated RBC % 0.3, Diff Path Review September, Platelet Estimate MOD INC, RBC Morphology N CHROM, Hypochromasia 1+, Anisocytosis 1+, Microcytosis 1+, Ovalocytes RARE, Sodium 138, Potassium 3.8, Chloride 105, Carbon Dioxide 29.0, Anion Gap 4 L, BUN 16, Creatinine 1.22, Estim Creat Clear Calc 66.48, Est GFR (MDRD) Af Amer 78, Est GFR (MDRD) Non-Af 64, BUN/Creatinine Ratio 13.1, Glucose 119 H, Calcium 8.5, Troponin I High Sens 6 02/09/23 20:44: Crossmatch See Detail Micro: Microbiology 02/09/23 20:10 Nasal Secretion SARS-CoV-2 Antigen (Rapid) - Final Assessment & Plan Assessment/Plan (1) Anemia requiring transfusions: PLAN: Plan Patient is a 62-year-old male with history of hypertension, hyperlipidemia and morbid obesity who presented to [facility] ED on 02/09/2023 with generalized weakness and shortness of breath. 1. Severe acute iron deficiency anemia Unclear etiology but highest suspicion is for an upper GI bleed given known history of GERD, no dark or bloody stools noted, and fairly recent colonoscopy (within last 3 to 4 years) that was normal. Cannot rule out lower GI bleed. UA normal, no concern for urinary source of bleed. Low concern for intravascular hemolysis but cannot rule out. Labs on admit of hemoglobin 5.9, MCV 66, iron 14, iron saturation 4%, ferritin 5. Hemodynamically stable. CT chest abdomen pelvis without contrast with no overt abnormalities. ? Admit to cardiac telemetry bed in PCU. GI consulted. N.p.o. in preparation for likely EGD tomorrow. We will transfuse 1 unit of packed red blood cells, repeat CBC in a.m. Start IV PPI twice daily. Can consider IV iron transfusions prior to discharge. B12, folate, haptoglobin ordered. Chronic medical conditions: ? Hypertension: BP 130s to 140 systolic in ED. Continue home amlodipine 5 mg daily. Hold home lisinopril?hydrochlorothiazide for now given severe anemia and concern for possible hypovolemia, restart as able. ? Hyperlipidemia: Continue home statin. ? Morbid obesity: BMI 42. Encouraged lifestyle modifications. DVT prophylaxis: Lovenox CODE STATUS: Full code, verified Expected disposition: Home, TBD Total clinical time spent by myself addressing the patient's medical issues, reviewing all the data, and collaborating with patient's care team: 55 minutes. Charges/Coding Visit Charges Inpatient E&M: 21972 Init Hosp L2
--- NOTE | 2023-02-09 21:50 | CT_ITS ---
STUDY: CT CHEST, ABDOMEN T PELVIS WITHOUT CONTRAST REASON FOR EXAM: Male, 62 years old. Anemia of unclear etiology RADIATION DOSAGE (If Supplied By Facility): CTDIvol = ( 26.81 ) mGy, DLP = ( 2398.98 ) mGycm TECHNIQUE: Transaxial imaging was performed without the administration of intravenous contrast material. Individualized dose optimization techniques were used for this CT. COMPARISON: Chest x-ray from today. CT abdomen and pelvis May 05, 2018. FINDINGS: CHEST Mild bilateral groundglass interstitial infiltrates. There is no demonstrated pleural abnormality. Normal heart and pericardium. Calcific coronary artery disease. Hypodense blood pool consistent with anemia. Normal mediastinum. Normal hilar regions. Normal unenhanced pulmonary arteries. Normal aorta arch and descending thoracic aorta. Normal osseous structures. There is no demonstrated abnormality of the visualized upper abdomen. ABDOMEN Normal liver. Normal gallbladder and extrahepatic biliary system. Normal spleen. Normal pancreas. Normal bilateral adrenal glands. Punctate bilateral nonobstructing nephroliths. 1 cm simple/left renal cortex. No follow-up required as it appears simple/benign. Normal visualized stomach. Normal small intestine. Normal colon. The appendix is visualized and appears normal. Calcified plaque along the aorta and its branches. Normal inferior vena cava. Normal retroperitoneum. Normal abdominal wall. Normal osseous structures. PELVIS Normal urinary bladder. Normal visualized small intestine. Normal visualized colon. There is no pelvic fluid. There is no pelvic lymphadenopathy or mass lesion. Bilateral fat-containing inguinal hernias. Normal visualized pelvic arteries. Normal abdominal wall. Normal osseous structures. CT/CT Chest, Abd, Pelvis WO Cont IMPRESSION: Bilateral punctate nonobstructing nephroliths. Anemia. Sensitivity limited without IV and oral contrast. Electronically Signed: Leon Madera MD at 22:46 EDT Reading Location ID and State: [address] [place] [address] Tel , Service support ,
[2023-02-09 21:52] LABS: Ferritin 5 ng/mL (26-388); Iron Binding Capacity,Total 350 ug/dL (250-450)
--- NOTE | 2023-02-09 22:06 | EX.ED.DYSGE1 ---
HPI History of Present Illness Chief Complaint: Shortness of Breath Narrative Narrative: 62-year-old male past medical history of hypertension and hypercholesterolemia presents with generalized weakness, shortness of breath, and dyspnea on exertion that he has had for the last 2 to 3 weeks. 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 Over the last few days, his swelling has resolved. He becomes very short of breath and has dyspnea on exertion, and low energy. He was seen by his primary care provider, Dr. Crenshaw, who sent him in for further evaluation. He denies any chest pain, but may have occasional pressure. No DVT or PE risk factors. He denies any black stool or any bleeding diathesis. [facility] Medical History Hypercholesteremia Hypertension Home Medications amlodipine 5 mg tablet 5 mg PO QHS 02/09/23 [History Last Taken Unknown] atorvastatin 20 mg tablet 20 mg PO DAILY 02/09/23 [History Last Taken Unknown] lisinopril 20 mg-hydrochlorothiazide 12.5 mg tablet 2 tab PO DAILY 02/09/23 [History Last Taken Unknown] Allergy/AdvReac Type Severity Reaction Status Date / Time No Known Allergies Allergy Verified 02/09/23 18:42 Social History Smoking Status: Never smoker ROS ROS ED ROS Narrative Constitutional: No fever, no chills. Mild fatigue. HEENT: No sore throat. No neck pain. No loss of vision. No rhinorrhea. Cardiovascular: Occasional chest pain. No palpitations. Bilateral pedal edema-significantly improved. Respiratory: No cough, dyspnea on exertion and shortness of breath. Abdominal: No abdominal pain. No nausea. No vomiting. Genitourinary: No dysuria. No hematuria. Musculoskeletal: No myalgias. No arthralgias. Neurologic: No headaches. No dizziness. No lightheadedness. Skin: No rash. No change in color. Psychiatric: No depression. No anxiety. EXAM Physical Exam Narrative Exam Narrative: Afebrile. Vital signs noted. HEENT: Normocephalic. Atraumatic. PERRL, EOMI. Neck soft and supple. No point tenderness or step off. Positive subconjunctival pallor. No central cyanosis. Cardiovascular: Intermittent tachycardia just above 100 bpm. No murmurs, rubs, or gallops appreciated. Respiratory: No tachypnea. Lungs clear to auscultation bilaterally. Gastrointestinal: Abdomen soft, nontender, with normoactive bowel sounds. No rebound or guarding. Chaperoned rectal examination reveals no evidence of dried blood, stool normal color. Neurological: Awake. Alert. Nonfocal, nonlateralizing. Skin: No rash. Normal color. Positive pallor. Musculoskeletal: No pedal edema. Full range of motion extremities. Const Vital Signs: 02/09/23 18:44 02/09/23 20:03 02/09/23 20:03 Temperature 98.6 F Temperature Source Temporal Pulse Rate 106 H 101 H Respiratory Rate 18 24 H Respiratory Effort Respiratory Depth Respiratory Pattern Blood Pressure 131/71 H 144/81 H Blood Pressure Mean 91 102 Pulse Ox 99 98 98 Oxygen Delivery Method Room Air Room Air Room Air 02/09/23 20:03 02/09/23 20:03 02/09/23 20:07 Temperature Temperature Source Pulse Rate Respiratory Rate 17 Respiratory Effort Normal Normal Respiratory Depth Normal Respiratory Pattern Normal Blood Pressure Blood Pressure Mean Pulse Ox 99 Oxygen Delivery Method Room Air Room Air MDM MDM MDM Narrative Medical decision making narrative: Comprehensive work-up was pursued. In the differential diagnosis is ACS, I have low suspicion for pulmonary embolism, and anemia is also in the differential. His EKG was obtained and interpreted by myself independently as normal sinus rhythm at 98 bpm without ectopy or acute ST changes. No STEMI. I reviewed his laboratory work from today and his hemoglobin is low at 5.9. 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 Platelet count is elevated at 541 which may be more of an acute phase reactant. He has a normal BUN of 16 and a creatinine normal at 1.22. I have low suspicion for upper GI bleeding. However, he does have a low MCV at 66.9 consistent with microcytic anemia. He will be transfused after type and crossmatch. Additionally, I did add ferritin and TIBC. High-sensitivity troponin is normal at 6. Chest x-ray is currently pending. Given his profound anemia, I did discuss the patient with Dr. Arndt with hospitalist medicine for admission to the PCU. Currently, patient is in stable condition. History & Record Review Discussion w/independent historian: Patient and Family Additional record(s) reviewed:: Prior ED visit and Prior labs Lab Data Attestation: I reviewed the patient's lab results. Labs: Laboratory Results - last 24 hr 02/09/23 02/09/23 19:30 20:44 WBC 9.2 RBC 3.29 L Hgb 5.9 L* Hct 22.0 L MCV 66.9 L MCH 17.9 L MCHC 26.8 L RDW Std Deviation 45.1 H RDW Coeff of Jennifer 18.6 H Plt Count 541 H MPV 8.9 Immature Gran % (Auto) 0.500 Neut % (Auto) 74.3 H Lymph % (Auto) 16.7 L [place] % (Auto) 6.3 Eos % (Auto) 1.9 Baso % (Auto) 0.3 Absolute Neuts (auto) 6.8 Absolute Lymphs (auto) 1.53 Nucleated RBC % 0.3 Diff Path Review May foll Platelet Estimate MOD INC RBC Morphology N CHROM Hypochromasia 1+ Anisocytosis 1+ Microcytosis 1+ Ovalocytes RARE Sodium 138 Potassium 3.8 Chloride 105 Carbon Dioxide 29.0 Anion Gap 4 L BUN 16 Creatinine 1.22 Estim Creat Clear Calc 66.48 Est GFR (MDRD) Af Amer 78 Est GFR (MDRD) Non-Af 64 BUN/Creatinine Ratio 13.1 Glucose 119 H Calcium 8.5 TIBC 350 Ferritin 5 L Troponin I High Sens 6 Crossmatch See Detail Discharge Plan Triage Chief Complaint: Shortness of Breath Other Complaint: Chest Pain ED Provider: Michael Herrera Dx/Rx/DC Orders Clinical Impression: Anemia requiring transfusions, MORENO (dyspnea on exertion), Generalized weakness Primary Care Provider: Lida Crenshaw
[2023-02-09 22:11] LABS: Iron 14 ug/dL (65-175); Iron Binding Capacity,Total 346 ug/dL (250-450)
[2023-02-09 22:45] LABS: Bacteria 0 SEEN /hpf (None Seen); Mucous, Urine 0 SEEN /hpf (<or=2+); Red Blood Cells-Urine 0 SEEN /hpf (0-5); Squamous Epithelial Cells - UA 0 SEEN /hpf (0-5); White Blood Cells 0 SEEN /hpf (0-5)
[2023-02-09 22:48] LABS: Color, Urine Yellow (Yellow); Glucose, Dipstick Normal (Normal); Ketone-Dipstick Negative (Negative); Leukocyte Esterase-Dipstick Negative /ul (Negative); Nitrite-Dipstick Negative (Negative); Occult Blood-Urine Negative /ul (Negative); Protein-Dipstick Negative (Negative); Urine Bilirubin Dipstick Negative (Negative); Urine Clarity Clear (Clear); Urine Urobilinogen Normal (Normal)
[2023-02-09 22:49] LABS: Vitamin B12 404 pg/mL (211-911)
[2023-02-09] MEDS: 0.9% Saline Lock 10 ML Syringe IV (23:46)
[2023-02-10] VITALS (14 sets, daily range): BP systolic 125–146; BP diastolic 72–93; PULSE 75–94; RESP 13–21; TEMP 36.5–37.1; O2SAT 94–99
[2023-02-10] MEDS: Pantoprazole Sodium 40 MG in 0.9% Normal Saline (100mL MB+) 100 ML 330 MG IV ×3 (02:21→20:38)
[2023-02-10 09:23] LABS: Absolute Lymphocyte Count 1.18 X10^3/uL (0.83-4.51); Absolute Neutrophil Count 5.4 X10^3/uL (2.0-7.7); Basophil# 0.04 X10^3/uL; Basophil% 0.5 % (0-1); Eosinophil# 0.25 X10^3/uL; Eosinophils% 3.3 % (0-5); Hematocrit 26.1 % (40-54); Hemoglobin 7.7 g/dL (13.0-16.5); Lymphocyte # 1.18 X10^3/ul (0.83-4.51); Lymphocyte % 15.4 % (19-41); Mean Corp Hgb Conc 29.5 g/dL (32-36); Mean Corpuscular Hgb 21.4 pg (27.0-32.0); Mean Corpuscular Volume 72.7 fL (80-94); Monocyte# 0.77 X10^3/uL; Monocyte% 10.1 % (0-10); NRBC Flagged by Analyzer 0.3 % (0-5); Neutrophil # 5.37 X10^3/uL (2.7-7.7); Neutrophil % 70.2 % (47-70); POSITIVE MORPHOLOGY YES; Platelet Count 431 K/mm3 (150-450); RBC Distribution Width CV 21.9 % (11.6-14.6); RBC Distribution Width SD 56.7 fl (35.1-43.9); Red Blood Count 3.59 M/mm3 (4.6-6.2); White Blood Count 7.7 K/mm3 (4.4-11.0)
[2023-02-10 09:25] LABS: Differential Indicated SCAN CRITERIA MET
[2023-02-10] MEDS: 0.9% Normal Saline (250mL Bag) 250 ML 15 ML IV (09:34)
[2023-02-10 09:37] LABS: Anion Gap 2 (5-15); BUN 15 mg/dL (7-18); BUN/Creat Ratio 15.3 RATIO (10-20); Calcium,Total 8.3 mg/dL (8.5-10.1); Chloride 108 mmol/L (98-107); Creatinine, Serum 0.98 mg/dL (0.70-1.30); EST Glomerular Filtration Rate 83 mL/min (>60); Est Glom Filt Rate - Afr Amer 100 mL/min (>60); Estimated Creatinine Clearance 82.77 ml/min; Glucose 99 mg/dL (74-106); Potassium 3.9 mmol/L (3.5-5.1); Sodium Level 138 mmol/L (136-145)
[2023-02-10 10:06] LABS: Differential Comment SCANNED; Ovalocyte RARE; Polychromasia RARE
[2023-02-10 10:07] LABS: Macrocytosis 1+; Microcytosis 2+
[2023-02-10] MEDS: Bisacodyl 5 MG Tablet 10 MG PO (12:50)
[2023-02-10] MEDS: Electrolyte Solution/Peg's 4000 ML 2000 ML PO ×2 (12:51→18:24)
--- NOTE | 2023-02-10 14:30 | CASEMGMT ---
RN JUVENCIO Face to Face with patient for initial transition planning/care coordination assessment. RN CM introduced self and role at [facility]. Patient sitting in chair, alert and oriented, at bedside. Patient willing to participate in assessment and is able to answer all questions appropriately. Care providers, pharmacy, and demographics verified. Patient wishes to discharge home, denies need for home health at this time. Patient states he has no further needs or concerns at this time. CM to follow for discharge planning needs that may arise. PCP: [facility] Specialists: none Preferred Pharmacy: [facility] Insurance: [place] Prescription Benefit: yes Living Will/HPOA: none LNOK: Living Arrangements: Patient lives with in a 2 story home. Patient is independent and able to ambulate stairs. Transportation: self, DME/HHC: Patient denies DME in the home. No previous HHC or SNF. Disposition Plan: Patient to discharge home with family support and follow-up plans in place. Keisha BAUTISTA, RN, CM
[2023-02-10 15:55] LABS: Hematocrit 29.8 % (40-54); Hemoglobin 8.6 g/dL (13.0-16.5)
--- NOTE | 2023-02-10 17:23 | PCM.PN.HOSP ---
Reason for Visit Reason for Visit: Diagnoses Anemia, unspecified (02/09/23) Subjective Subjective Patient was seen and examined today, he was admitted yesterday for severe anemia and received blood transfusions, I repeated the patient's blood count this afternoon and his hemoglobin was 8.6. I talked to gastroenterology, I feel it would be a good idea for the patient to undergo an upper and lower endoscopy both and so I recommend that he be prepped for colonoscopy tomorrow and also have an EGD tomorrow and gastroenterology agreed with this. I went over this with the patient. Patient admits to some mild weight loss over the past several months but was nonspecific, he said his last colonoscopy was approximately 4 years ago and he does not remember that anything of significance was found on the colonoscopy. Objective Data Objective Data Vital Signs: Vital Signs Temp Pulse Resp BP Pulse Ox O2 Del Method 98.7 F 85 20 H 125/72 H 97 Room Air 02/10/23 14:00 02/10/23 14:00 02/10/23 14:00 02/10/23 14:00 02/10/23 14:00 02/10/23 14:00 Oxygen Delivery Method Room Air Weight: 134.9 kg Body Mass Index (BMI) 42.6 Intake & Output: Intake and Output for Last 24 Hours 02/08/23 02/09/23 02/10/23 23:59 23:59 23:59 Intake Total 0 / 0 1278.5 / 1278.5 Balance 0 / 0 1278.5 / 1278.5 Lab / Micro Data 02/10/23 15:50 02/10/23 09:15 Labs: Laboratory Results - last 24 hr 02/09/23 19:30: WBC 9.2, RBC 3.29 L, Hgb 5.9 L*, Hct 22.0 L, MCV 66.9 L, MCH 17.9 L, MCHC 26.8 L, RDW Std Deviation 45.1 H, RDW Coeff of Jennifer 18.6 H, Plt Count 541 H, MPV 8.9, Immature Gran % (Auto) 0.500, Neut % (Auto) 74.3 H, Lymph % (Auto) 16.7 L, [place] % (Auto) 6.3, Eos % (Auto) 1.9, Baso % (Auto) 0.3, Absolute Neuts (auto) 6.8, Absolute Lymphs (auto) 1.53, Nucleated RBC % 0.3, Diff Path Review May foll, Platelet Estimate MOD INC, RBC Morphology N CHROM, Hypochromasia 1+, Anisocytosis 1+, Microcytosis 1+, Ovalocytes RARE, Sodium 138, Potassium 3.8, Chloride 105, Carbon Dioxide 29.0, Anion Gap 4 L, BUN 16, Creatinine 1.22, Estim Creat Clear Calc 66.48, Est GFR (MDRD) Af Amer 78, Est GFR (MDRD) Non-Af 64, BUN/Creatinine Ratio 13.1, Glucose 119 H, Calcium 8.5, TIBC 350, Ferritin 5 L, Troponin I High Sens 6, Vitamin B12 404, Folate 6.50 02/09/23 19:50: Iron 14 L, TIBC 346, Iron Saturation 4.0 L 02/09/23 20:44: Antibody Screen NEGATIVE, Crossmatch See Detail 02/09/23 22:35: Urine Color Yellow, Urine Clarity Clear, Urine pH 7.0, Ur Specific [place] 1.010, Urine Protein Negative, Urine Glucose (UA) Normal, Urine Ketones Negative, Urine Occult Blood Negative, Urine Nitrite Negative, Urine Bilirubin Negative, Urine Urobilinogen Normal, Ur Leukocyte Esterase Negative, Urine RBC 0 SEEN, Urine WBC 0 SEEN, Ur Squamous Epith Cells 0 SEEN, Urine Bacteria 0 SEEN, Urine Mucus 0 SEEN 02/10/23 09:15: WBC 7.7, RBC 3.59 L, Hgb 7.7 L, Hct 26.1 L, MCV 72.7 L D, MCH 21.4 L, MCHC 29.5 L D, RDW Std Deviation 56.7 H, RDW Coeff of Jennifer 21.9 H, Plt Count 431, MPV 9.0, Immature Gran % (Auto) 0.500, Neut % (Auto) 70.2 H, Lymph % (Auto) 15.4 L, [place] % (Auto) 10.1 H, Eos % (Auto) 3.3, Baso % (Auto) 0.5, Absolute Neuts (auto) 5.4, Absolute Lymphs (auto) 1.18, Nucleated RBC % 0.3, Differential Comment SCANNED, Polychromasia RARE, Microcytosis 2+, Macrocytosis 1+, Ovalocytes RARE, Sodium 138, Potassium 3.9, Chloride 108 H, Carbon Dioxide 28.0, Anion Gap 2 L, BUN 15, Creatinine 0.98, Estim Creat Clear Calc 82.77, Est GFR (MDRD) Af Amer 100, Est GFR (MDRD) Non-Af 83, BUN/Creatinine Ratio 15.3, Glucose 99, Calcium 8.3 L 02/10/23 15:50: Hgb 8.6 L, Hct 29.8 L Micro: Microbiology 02/09/23 21:15 Stool Stool Occult Blood (TAYLOR) - Final 02/09/23 20:10 Nasal Secretion SARS-CoV-2 Antigen (Rapid) - Final Radiography Diagnostic Testing: Radiology Impression Chest X-Ray 02/09/23 20:45 IMPRESSION: Normal x-ray examination of the chest. Electronically Signed: Leon Madera MD at 22:13 EDT Reading Location ID and State: [address] [place] [address] Tel , Service support , Chest/Abdomen/Pelvis CT 02/09/23 21:50 IMPRESSION: Bilateral punctate nonobstructing nephroliths. Anemia. Sensitivity limited without IV and oral contrast. Electronically Signed: Leon Madera MD at 22:46 EDT Reading Location ID and State: [address] [place] [address] Tel , Service support , Physical Exam Const alert, oriented x3, no apparent distress and healthy appearing Constitutional Narrative: Patient is morbidly obese General Appearance: cooperative, well kempt and well developed Orientation / Consciousness: awake, oriented to person, oriented to place and oriented to time HEENT normocephalic, head/scalp atraumatic and moist oral mucous membranes Eyes PERRL, EOMs intact bilaterally and conjunctivae normal Neck supple, no JVD, thyroid normal and no carotid bruits General: trachea midline Resp normal respiratory effort, no retractions, no use of accessory muscles and clear to auscultation bilaterally Auscultation: Negative for rales, rhonchi or wheezes Cardio regular rate, regular rhythm, S1 normal heart sound, S2 normal heart sound, no murmurs, no rub and no gallops GI normal to inspection, nondistended, normoactive bowel sounds, soft to palpation, non-tender and non-distended Extremity no clubbing, cyanosis or edema Skin no rashes or lesions noted General Skin Exam: no breakdown Neuro oriented x3, CN's II-XII intact bilaterally, moves all extremities, no focal motor deficits and no sensory deficits noted Sensorium / Orientation: awake, alert, oriented to person, oriented to place and oriented to time Speech: speech normal Psych affect normal Assessment & Plan Assessment/Plan (1) Anemia requiring transfusions: PLAN: Plan 1. Acute anemia associated with iron deficiency-suspect possible underlying chronic GI blood loss from neoplasm, polyp, or other pathology-again patient will be prepped for colonoscopy and also undergo an EGD tomorrow, CBC will be repeated tomorrow. Patient remains on IV Protonix #2 iron deficiency anemia-again, this is probably indicative of gradual blood loss over period of time, I do not feel the patient would benefit from iron infusions at this time #3 morbid obesity-complicates care, medical course, recovery, and prognosis #4 essential hypertension-patient is on lisinopril, hydrochlorothiazide and amlodipine-these medications are being held at this time his blood pressure is under control at this time and these medications will have to be reviewed before his discharge home #5 hyperlipidemia-patient is on a statin, this is being held at this time and he can resume the medication when he goes home Total clinical time spent by myself addressing the patient's medical issues, reviewing all of his data, and collaborating with patient's care team: 35 minutes Charges/Coding Visit Charges Inpatient E&M: 35794 Subs Hosp L2
--- NOTE | 2023-02-10 19:26 | CON.PCM.GI_ITS ---
HPI Consult Data Date of Consult: 02/11/23 HPI Narrative Reason for Consultation: Anemia HPI Narrative: JUSTIN CARDONA, is a 62-year-old male past medical history of hypertension and hypercholesterolemia presents with generalized weakness, shortness of breath, and dyspnea on exertion that he has had for the last 2 to 3 weeks. 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 Over the last few days, his swelling has resolved. He becomes very short of breath and has dyspnea on exertion, and low energy. He was seen by his primary care provider, Dr. Crenshaw, who sent him in for further evaluation. He denies any chest pain, but may have occasional pressure. No DVT or PE risk factors. He denies any black stool or any bleeding diathesis. Labs notable for hemoglobin 5.9, MCV 66, iron 14, iron saturation 4%, ferritin 5, normal BMP, normal LFTs. UA was normal. CT chest abdomen pelvis without contrast showed bilateral nonobstructing nephroliths, otherwise no abnormalities. Chest x-ray was normal. [facility] Medical History Hypercholesteremia Hypertension Home Medications amlodipine 5 mg tablet 5 mg PO QHS 02/09/23 [History Last Taken Unknown] atorvastatin 20 mg tablet 20 mg PO DAILY 02/09/23 [History Last Taken Unknown] lisinopril 20 mg-hydrochlorothiazide 12.5 mg tablet 2 tab PO DAILY 02/09/23 [History Last Taken Unknown] Allergy/AdvReac Type Severity Reaction Status Date / Time No Known Allergies Allergy Verified 02/09/23 18:42 Social History Smoking Status: Never smoker ROS Constitutional Constitutional: Reports fatigue and malaise; Denies chills, fever(s) or weakness Eyes Eyes: Denies change in vision Cardiovascular Cardiovascular: Reports chest pain and lightheadedness; Denies edema or syncope Respiratory/Chest Respiratory/Chest: Denies cough Gastrointestinal Gastrointestinal: Denies abdominal pain, constipation, diarrhea, hematemesis, hematochezia, melena, nausea or vomiting Genitourinary Genitourinary: Denies dysuria Hematologic/Lymphatic Hematologic/Lymphatic: Denies easy bleeding or easy bruising Physical Exam Const alert, oriented x3, no apparent distress and healthy appearing Constitutional Narrative: Patient is morbidly obese General Appearance: cooperative, well kempt and well developed Orientation / Consciousness: awake, oriented to person, oriented to place and oriented to time HEENT normocephalic, head/scalp atraumatic and moist oral mucous membranes Eyes PERRL, EOMs intact bilaterally and conjunctivae normal Neck supple, no JVD, thyroid normal and no carotid bruits General: trachea midline Resp normal respiratory effort, no retractions, no use of accessory muscles and clear to auscultation bilaterally Auscultation: Negative for rales, rhonchi or wheezes Cardio regular rate, regular rhythm, S1 normal heart sound, S2 normal heart sound, no murmurs, no rub and no gallops GI normal to inspection, nondistended, normoactive bowel sounds, soft to palpation, non-tender and non-distended Extremity no clubbing, cyanosis or edema Skin no rashes or lesions noted General Skin Exam: no breakdown Neuro oriented x3, CN's II-XII intact bilaterally, moves all extremities, no focal motor deficits and no sensory deficits noted Sensorium / Orientation: awake, alert, oriented to person, oriented to place and oriented to time Speech: speech normal Psych affect normal Lab / Micro Data 02/11/23 03:25 02/10/23 09:15 Labs: Laboratory Results - last 24 hr 02/09/23 19:30: WBC 9.2, RBC 3.29 L, Hgb 5.9 L*, Hct 22.0 L, MCV 66.9 L, MCH 17.9 L, MCHC 26.8 L, RDW Std Deviation 45.1 H, RDW Coeff of Jennifer 18.6 H, Plt Count 541 H, MPV 8.9, Immature Gran % (Auto) 0.500, Neut % (Auto) 74.3 H, Lymph % (Auto) 16.7 L, [place] % (Auto) 6.3, Eos % (Auto) 1.9, Baso % (Auto) 0.3, Absolute Neuts (auto) 6.8, Absolute Lymphs (auto) 1.53, Nucleated RBC % 0.3, Diff Path Review May foll, Platelet Estimate MOD INC, RBC Morphology N CHROM, Hypochromasia 1+, Anisocytosis 1+, Microcytosis 1+, Ovalocytes RARE, Sodium 138, Potassium 3.8, Chloride 105, Carbon Dioxide 29.0, Anion Gap 4 L, BUN 16, Creatinine 1.22, Estim Creat Clear Calc 66.48, Est GFR (MDRD) Af Amer 78, Est GFR (MDRD) Non-Af 64, BUN/Creatinine Ratio 13.1, Glucose 119 H, Calcium 8.5, TIBC 350, Ferritin 5 L, Troponin I High Sens 6, Vitamin B12 404, Folate 6.50 02/09/23 19:50: Iron 14 L, TIBC 346, Iron Saturation 4.0 L 02/09/23 20:44: Antibody Screen NEGATIVE, Crossmatch See Detail 02/09/23 22:35: Urine Color Yellow, Urine Clarity Clear, Urine pH 7.0, Ur Spec ific [place] 1.010, Urine Protein Negative, Urine Glucose (UA) Normal, Urine Ketones Negative, Urine Occult Blood Negative, Urine Nitrite Negative, Urine Bilirubin Negative, Urine Urobilinogen Normal, Ur Leukocyte Esterase Negative, Urine RBC 0 SEEN, Urine WBC 0 SEEN, Ur Squamous Epith Cells 0 SEEN, Urine Bacteria 0 SEEN, Urine Mucus 0 SEEN 02/10/23 09:15: WBC 7.7, RBC 3.59 L, Hgb 7.7 L, Hct 26.1 L, MCV 72.7 L D, MCH 21.4 L, MCHC 29.5 L D, RDW Std Deviation 56.7 H, RDW Coeff of Jennifer 21.9 H, Plt Count 431, MPV 9.0, Immature Gran % (Auto) 0.500, Neut % (Auto) 70.2 H, Lymph % (Auto) 15.4 L, [place] % (Auto) 10.1 H, Eos % (Auto) 3.3, Baso % (Auto) 0.5, Absolute Neuts (auto) 5.4, Absolute Lymphs (auto) 1.18, Nucleated RBC % 0.3, Differential Comment SCANNED, Polychromasia RARE, Microcytosis 2+, Macrocytosis 1+, Ovalocytes RARE, Sodium 138, Potassium 3.9, Chloride 108 H, Carbon Dioxide 28.0, Anion Gap 2 L, BUN 15, Creatinine 0.98, Estim Creat Clear Calc 82.77, Est GFR (MDRD) Af Amer 100, Est GFR (MDRD) Non-Af 83, BUN/Creatinine Ratio 15.3, Glucose 99, Calcium 8.3 L 02/10/23 15:50: Hgb 8.6 L, Hct 29.8 L Micro: Microbiology 02/09/23 21:15 Stool Stool Occult Blood (TAYLOR) - Final 02/09/23 20:10 Nasal Secretion SARS-CoV-2 Antigen (Rapid) - Final Radiology Impression Chest X-Ray 02/09/23 20:45 IMPRESSION: Normal x-ray examination of the chest. Electronically Signed: Leon Madera MD at 22:13 EDT Reading Location ID and State: [address] [place] [address] Tel , Service support , Chest/Abdomen/Pelvis CT 02/09/23 21:50 IMPRESSION: Bilateral punctate nonobstructing nephroliths. Anemia. Sensitivity limited without IV and oral contrast. Electronically Signed: Leon Madera MD at 22:46 EDT Reading Location ID and State: [address] [place] [address] Tel , Service support , Assessment & Plan Assessment/Plan (1) Anemia requiring transfusions: PLAN: Plan Patient is a 62-year-old male with history of hypertension, hyperlipidemia and morbid obesity who presented to [facility] ED on 02/09/2023 with generalized weakness and shortness of breath. He has severe acute iron deficiency anemia. Unclear etiology but highest suspicion is for an upper GI bleed given known history of GERD, no dark or bloody stools noted, and fairly recent colonoscopy (within last 3 to 4 years) that was normal. Cannot rule out lower GI bleed. UA normal, no concern for urinary source of bleed. Low concern for intravascular hemolysis but cannot rule out. Labs on admit of hemoglobin 5.9, MCV 66, iron 14, iron saturation 4%, ferritin 5. Hemodynamically stable. CT chest abdomen pelvis without contrast with no overt abnormalities. He will undergo an EGD and colonoscopy tomorrow. He was explained alternatives, risk, benefits, including bleeding, perforation, need for emergent surgery and . He will have an ASA of three. Charges/Coding Visit Charges Inpatient E&M: 98725 Subs Hosp L3
[2023-02-11] VITALS (8 sets, daily range): BP systolic 114–152; BP diastolic 75–92; PULSE 77–95; RESP 14–18; TEMP 36.2–37.2; O2SAT 95–98
--- NOTE | 2023-02-11 | GASB_PTH ---
PATIENT: JUSTIN CARDONA LOC: [facility] U#:[id number] AGE/SX: 62/M ROOM: [facility] RE02/09/[address]: Dr. Merrick Cruz MD : 1960 BED: 1 DIS: 02/13/2023 SPEC #: [id number] RECD: 02/11/23 11:45 STATUS: YISEL REDevin #: [id number] KAPIL: 02/11/23 00:[address]: Olayinka Manning DEPT: SURGICAL PATHOLOGY RECD BY: Ludy Desouza ENTERED: 02/11/23 11:59 SP TYPE: Gastric Bx OTHR DR: MD Dr. Shawn Moulton, DO Dr. Domo Lee, DO Dr. Merrcik Cruz MD Tissues: A - Gastric mucous membrane B - Gastric mucous membrane Procedures: Frozen Section (charge) Surgery Specimen Level IV HEADER OPERATION: Colonoscopy, EGD PRE-OP DIAGNOSIS: Anemia requiring transfusions TISSUE SUBMITTED: A - Gastric mass sent for frozen section, B - Gastric mass biopsy FROZEN SECTION DIAGNOSIS A. Gastric mass, biopsy: Hyperplastic/inflammatory polyp. Negative for malignancy. TNAK:torsten 02/11/2023 MICROSCOPIC DIAGNOSIS A. Gastric mass, biopsy: Hyperplastic polyp. B. Gastric mass, biopsy: Fragments of hyperplastic polyp. AM:torsten 02/12/2023 MICROSCOPIC DESCRIPTION Slides are reviewed. GROSS DESCRIPTION A - Received fresh for frozen section diagnosis labeled with the patient's name is a specimen designated gastric mass. The specimen consists of multiple irregular fragments of daugherty-pink soft tissue that in aggregate measure 0.5 x 0.5 x 0.1 cm. The specimen is totally submitted in one cassette for frozen section diagnosis. / TANK:torsten 02/11/2023 B - Received in fixative is one container labeled with the patient's name and designated gastric mass biopsy. The specimen consists of multiple irregular fragments of light daugherty soft tissue that in aggregate measure 1.5 x 1.5 x 0.1 cm. The specimen is totally submitted in one cassette. / AM:torsten 02/11/2023 TC:5 CPT: 77096 x2, 58064
[2023-02-11 03:44] LABS: Absolute Lymphocyte Count 1.62 X10^3/uL (0.83-4.51); Basophil# 0.04 X10^3/uL; Basophil% 0.5 % (0-1); Eosinophil# 0.26 X10^3/uL; Hematocrit 27.1 % (40-54); Hemoglobin 7.9 g/dL (13.0-16.5); Lymphocyte # 1.62 X10^3/ul (0.83-4.51); Lymphocyte % 18.6 % (19-41); Mean Corp Hgb Conc 29.2 g/dL (32-36); Mean Corpuscular Hgb 21.1 pg (27.0-32.0); Mean Corpuscular Volume 72.3 fL (80-94); Mean Platelet Vol. 9.3 fl (6.2-12.0); Monocyte# 0.77 X10^3/uL; Monocyte% 8.9 % (0-10); NRBC Flagged by Analyzer 0.2 % (0-5); Neutrophil # 5.95 X10^3/uL (2.7-7.7); Neutrophil % 68.4 % (47-70); POSITIVE MORPHOLOGY YES; Platelet Count 443 K/mm3 (150-450); RBC Distribution Width CV 22.5 % (11.6-14.6); RBC Distribution Width SD 57.2 fl (35.1-43.9); Red Blood Count 3.75 M/mm3 (4.6-6.2); White Blood Count 8.7 K/mm3 (4.4-11.0)
[2023-02-11 03:45] LABS: Differential Indicated SCAN CRITERIA MET
[2023-02-11 04:06] LABS: Anisocytosis 2+; Microcytosis 2+
[2023-02-11 04:07] LABS: Hypochromasia 1+; Polychromasia RARE
[2023-02-11 05:07] LABS: Haptoglobin 236 mg/dL (29-370)
--- NOTE | 2023-02-11 07:49 | PN.HOSP_ITS ---
Reason for Visit Reason for Visit: Diagnoses Anemia, unspecified (02/09/23) Subjective Subjective Follow-up for severe iron deficits anemia that required 3 units of PRBC transfusion Objective Data Objective Data Vital Signs: Vital Signs Temp Pulse Resp BP Pulse Ox O2 Del Method 98 F 95 16 136/75 H 98 Room Air 02/11/23 02:00 02/11/23 02:00 02/11/23 02:00 02/11/23 02:00 02/11/23 02:00 02/11/23 02:00 Oxygen Delivery Method Room Air Weight: 297 lb 6.457 oz Body Mass Index (BMI) 42.6 Intake & Output: Intake and Output for Last 24 Hours 02/09/23 02/10/23 02/11/23 23:59 23:59 23:59 Intake Total 0 / 0 1396.0 / 1396.0 Balance 0 / 0 1396.0 / 1396.0 Lab / Micro Data 02/11/23 03:25 02/10/23 09:15 Labs: Laboratory Results - last 24 hr 02/09/23 20:44: Crossmatch See Detail 02/09/23 22:19: Haptoglobin 236 02/10/23 09:15: WBC 7.7, RBC 3.59 L, Hgb 7.7 L, Hct 26.1 L, MCV 72.7 L D, MCH 21.4 L, MCHC 29.5 L D, RDW Std Deviation 56.7 H, RDW Coeff of Jennifer 21.9 H, Plt Count 431, MPV 9.0, Immature Gran % (Auto) 0.500, Neut % (Auto) 70.2 H, Lymph % (Auto) 15.4 L, Warrick % (Auto) 10.1 H, Eos % (Auto) 3.3, Baso % (Auto) 0.5, Absolute Neuts (auto) 5.4, Absolute Lymphs (auto) 1.18, Nucleated RBC % 0.3, Differential Comment SCANNED, Polychromasia RARE, Microcytosis 2+, Macrocytosis 1+, Ovalocytes RARE, Sodium 138, Potassium 3.9, Chloride 108 H, Carbon Dioxide 28.0, Anion Gap 2 L, BUN 15, Creatinine 0.98, Estim Creat Clear Calc 82.77, Est GFR (MDRD) Af Amer 100, Est GFR (MDRD) Non-Af 83, BUN/Creatinine Ratio 15.3, Glucose 99, Calcium 8.3 L 02/10/23 15:50: Hgb 8.6 L, Hct 29.8 L 02/11/23 03:25: WBC 8.7, RBC 3.75 L, Hgb 7.9 L, Hct 27.1 L, MCV 72.3 L, MCH 21.1 L, MCHC 29.2 L, RDW Std Deviation 57.2 H, RDW Coeff of Jennifer 22.5 H, Plt Count 443, MPV 9.3, Immature Gran % (Auto) 0.600, Neut % (Auto) 68.4, Lymph % (Auto) 18.6 L, Warrick % (Auto) 8.9, Eos % (Auto) 3.0, Baso % (Auto) 0.5, Absolute Neuts (auto) 6.0, Absolute Lymphs (auto) 1.62, Nucleated RBC % 0.2, Polychromasia RARE, Hypochromasia 1+, Anisocytosis 2+, Microcytosis 2+ Micro: Microbiology 02/09/23 21:15 Stool Stool Occult Blood (TAYLOR) - Final 02/09/23 20:10 Nasal Secretion SARS-CoV-2 Antigen (Rapid) - Final Physical Exam Narrative Patient feeling short of breath on exertion prior to admission. Denies obvious upper or lower GI bleeding including hematemesis melena or hematochezia. Physical exam General: Alert, Oriented x3, Cooperative, morbid obesity BMI 42.7 kg/m?. HEENT: Pale conjunctive a. Atraumatic, PERRLA, EOMI, Normocephalic Oral: Oral mucosa dry. No Gingival or Mucosal Lesions/ Ulcerations Neck: Supple, No JVD, Negative Carotid Bruits Lungs: Air entry diminished in bilateral lung bases. No crepitation/rhonchi Cardiovascular: Regular rate, Regular Rhythm, Normal S1, Normal S2, No murmurs Abdomen: Bowel Sounds Present, Soft, Non Tender, Non-Distended : No renal angle tenderness. No suprapubic tenderness. Extremities: No edema, Capillary Refill Less than 3 Seconds Skin: No rashes, No breakdown Musculoskeletal: No Tenderness to Palpation of Joints or Extremities Neurological: Cranial nerves II-XII grossly intact, DTR 2+/4. No acute focal neurological deficit. Psych/Mental Status: Normal Affect, Appropriate. Assessment & Plan Assessment/Plan (1) Anemia requiring transfusions: PLAN: Plan 1. Acute anemia associated with iron deficiency-patient is admitted in PCU. Patient required 3 units of PRBC transfusion. Posttransfusion hemoglobin 7.9. Stool for occult blood was negative. Peripheral smear shows polychromasia, hypochromasia anisocytosis and microcytosis suggestive of iron deficiency anemia. CBC shows low MCV MCHC and elevated RDW. Platelet count 443,000 also history of iron versus anemia. Patient had EGD reported normal esophagus multiple gastric polyps resected and retrieved. Normal D2. Colonoscopy reported diverticula in the rectosigmoid colon and sigmoid colon. Large lipoma at hepatic flexure.No specimen collected. Overall patient feeling better after PRBC transfusion #2 Acute on chronic iron deficiency anemia-possible due to chronic GI blood loss. Haptoglobin 236 normal. #3 morbid obesity-complicates care, medical course, recovery, and prognosis #4 essential hypertension-patient is on lisinopril, hydrochlorothiazide and amlodipine monitor BP. Currently these medications are on hold. #5 hyperlipidemia-patient is on a statin, this is being held at this time and he can resume the medication when he goes home Charges/Coding Visit Charges Inpatient E&M: 44322 Subs Hosp L2
[2023-02-11 09:54] LABS: Pathologist Review Reviewed
--- NOTE | 2023-02-11 12:12 | OP.CCLET_ITS ---
02/11/2023 Lida Crenshaw [address] [place] [address] Re : Upper GI endoscopy procedure for Fidencio Parsons Dear Dr. Crenshaw This procedure was performed on January. My impressions and recommendations are as follows: Impressions : - Normal esophagus. - Multiple gastric polyps. Resected and retrieved. - Normal second portion of the duodenum. Recommendations : - [facility]. - Resume previous diet. - Continue present medications. - Repeat egd My findings are described in the full procedure note, which is enclosed. If I can be of further assistance, please feel free to contact me at . Sincerely, Olayinka Manning, 02/11/2023 12:12:05 PM This report has been signed electronically.
--- NOTE | 2023-02-11 12:12 | OP.EGD_ITS ---
Patient Name: Fidencio Parsons Procedure Date: 02/11/2023 11:19 AM Date of : 1960 Age: 62 Procedure: Upper GI endoscopy Indications: Iron deficiency anemia Providers: Olayinka Manning DO Medicines: Monitored Anesthesia Care Patient Profile: This is a 62 year old male. Refer to note in patient chart for documentation of history and physical. Patient has symptoms of acute dyspepsia. Complications: No immediate complications. Procedure: Pre-Anesthesia Assessment: - Prior to the procedure, a History and Physical was performed, and patient medications and allergies were reviewed. The patient is competent. The risks and benefits of the procedure and the sedation options and risks were discussed with the patient. All questions were answered and informed consent was obtained. Patient identification and proposed procedure were verified by the physician in the pre-procedure area. Mental Status Examination: alert and oriented. Airway Examination: normal oropharyngeal airway and neck mobility. Respiratory Examination: clear to auscultation. CV Examination: normal. Prophylactic Antibiotics: The patient does not require prophylactic antibiotics. Prior Anticoagulants: The patient has taken no anticoagulant or antiplatelet agents. ASA Grade Assessment: II - A patient with mild systemic disease. After reviewing the risks and benefits, the patient was deemed in satisfactory condition to undergo the procedure. The anesthesia plan was to use monitored anesthesia care (MAC). Immediately prior to administration of medications, the patient was re-assessed for adequacy to receive sedatives. The heart rate, respiratory rate, oxygen saturations, blood pressure, adequacy of pulmonary ventilation, and response to care were monitored throughout the procedure. The physical status of the patient was re-assessed after the procedure. After obtaining informed consent, the endoscope was passed under direct vision. Throughout the procedure, the patient's blood pressure, pulse, and oxygen saturations were monitored continuously. The colonoscope was introduced through the mouth, and advanced to the second part of duodenum. The upper GI endoscopy was accomplished without difficulty. The patient tolerated the procedure well. Scope In: 11:31:19 AM Scope Out: 11:40:37 AM Total Procedure Duration Time 0 hours 9 minutes 18 seconds Findings: The examined esophagus was normal. Multiple 1 to 4 mm pedunculated and sessile polyps with bleeding and no stigmata of recent bleeding were found in the gastric body. The polyp was removed with a jumbo cold forceps. Resection and retrieval were complete. Verification of patient identification for the specimen was done. Estimated blood loss was minimal. The second portion of the duodenum was normal. Impression: - Normal esophagus. - Multiple gastric polyps. Resected and retrieved. - Normal second portion of the duodenum. Recommendation: - [facility]. - Resume previous diet. - Continue present medications. - Repeat egd Procedure Code(s): --- Professional --- 33040, Esophagogastroduodenoscopy, flexible, transoral; with biopsy, single or multiple CPT copyright 2021 [employer]. All rights reserved. The codes documented in this report are preliminary and upon human resources office manager review may be revised to meet current compliance requirements. Olayinka Manning DO 02/11/2023 12:12:05 PM This report has been signed electronically. Number of Addenda: 0 Note Initiated On: 02/11/2023 11:19 AM
--- NOTE | 2023-02-11 12:15 | OP.COLON_ITS ---
Patient Name: Fidencio Parsons Procedure Date: 02/11/2023 11:40 AM Date of : 1960 Age: 62 Procedure: Colonoscopy Indications: Iron deficiency anemia Providers: Olayinka Manning DO Medicines: Monitored Anesthesia Care Patient Profile: This is a 62 year old male. Refer to note in patient chart for documentation of history and physical. Patient has symptoms of acute dyspepsia. Last Colonoscopy: more than 3 years ago. Complications: No immediate complications. Procedure: Pre-Anesthesia Assessment: - Prior to the procedure, a History and Physical was performed, and patient medications and allergies were reviewed. The patient is competent. The risks and benefits of the procedure and the sedation options and risks were discussed with the patient. All questions were answered and informed consent was obtained. Patient identification and proposed procedure were verified by the physician in the pre-procedure area. Mental Status Examination: alert and oriented. Airway Examination: normal oropharyngeal airway and neck mobility. Respiratory Examination: clear to auscultation. CV Examination: normal. Prophylactic Antibiotics: The patient does not require prophylactic antibiotics. Prior Anticoagulants: The patient has taken no anticoagulant or antiplatelet agents. ASA Grade Assessment: II - A patient with mild systemic disease. After reviewing the risks and benefits, the patient was deemed in satisfactory condition to undergo the procedure. The anesthesia plan was to use monitored anesthesia care (MAC). Immediately prior to administration of medications, the patient was re-assessed for adequacy to receive sedatives. The heart rate, respiratory rate, oxygen saturations, blood pressure, adequacy of pulmonary ventilation, and response to care were monitored throughout the procedure. The physical status of the patient was re-assessed after the procedure. After I obtained informed consent, the scope was passed under direct vision. Throughout the procedure, the patient's blood pressure, pulse, and oxygen saturations were monitored continuously. The colonoscope was introduced through the anus and advanced to the terminal ileum. The colonoscopy was performed without difficulty. The patient tolerated the procedure well. The quality of the bowel preparation was adequate. Scope In: 11:43:37 AM Scope Withdrawal Time 0 hours 11 minutes 23 seconds Scope Out: 11:56:37 AM Total Procedure Duration Time 0 hours 13 minutes 0 seconds Findings: Multiple small and large-mouthed diverticula were found in the recto-sigmoid colon and sigmoid colon. The exam was otherwise without abnormality on direct and retroflexion views. There was a large lipoma, at the hepatic flexure. Impression: - Diverticulosis in the recto-sigmoid colon and in the sigmoid colon. - The examination was otherwise normal on direct and retroflexion views. - Large lipoma at the hepatic flexure. - No specimens collected. Recommendation: - [facility]. - Resume regular diet. - Continue present medications. - Await pathology results. - Repeat colonoscopy in 5 years for surveillance. Procedure Code(s): --- Professional --- 47424, Colonoscopy, flexible; diagnostic, including collection of specimen(s) by brushing or washing, when performed (separate procedure) CPT copyright 2021 [employer]. All rights reserved. The codes documented in this report are preliminary and upon extrusion bender review may be revised to meet current compliance requirements. Olayinka Manning DO 02/11/2023 12:14:55 PM This report has been signed electronically. Number of Addenda: 0 Note Initiated On: 02/11/2023 11:40 AM
--- NOTE | 2023-02-11 12:15 | OP.CCLET_ITS ---
02/11/2023 Lida [address]shaw [address] [place] [address] Re : Colonoscopy procedure for Fidencio Parsons Dear Dr. Crenshaw This procedure was performed on January. My impressions and recommendations are as follows: Impressions : - Diverticulosis in the recto-sigmoid colon and in the sigmoid colon. - The examination was otherwise normal on direct and retroflexion views. - Large lipoma at the hepatic flexure. - No specimens collected. Recommendations : - [facility]. - Resume regular diet. - Continue present medications. - Await pathology results. - Repeat colonoscopy in 5 years for surveillance. My findings are described in the full procedure note, which is enclosed. If I can be of further assistance, please feel free to contact me at . Sincerely, Olayinka Manning, 02/11/2023 12:14:55 PM This report has been signed electronically.
[2023-02-11] MEDS: Pantoprazole Sodium 40 MG in 0.9% Normal Saline (100mL MB+) 100 ML 330 MG IV (20:34)
[2023-02-12] VITALS (7 sets, daily range): BP systolic 123–153; BP diastolic 62–87; PULSE 63–92; RESP 16–18; TEMP 36.1–36.9; O2SAT 94–99
--- NOTE | 2023-02-12 | GASB_PTH ---
PATIENT: JUSTIN CARDONA LOC: [facility] U#:[id number] AGE/SX: 62/M ROOM: [facility] RE02/09/[address]: Dr. Merrick Cruz MD : 1960 BED: 1 DIS: 02/13/2023 SPEC #: [id number] RECD: 02/12/23 16:28 STATUS: YISEL REDevin #: [id number] KAPIL: 02/12/23 00:[address]: Olayinka Manning DEPT: SURGICAL PATHOLOGY RECD BY: Warren Wheeler ENTERED: 02/15/23 09:29 SP TYPE: Gastric Bx OTHR DR: MD Dr. Shawn Moulton, DO Dr. Domo Lee, DO Dr. Merrick Cruz MD Tissues: Gastric mucous membrane Procedures: Surgery Specimen Level IV Comments: @ Ordering doctor for SUIV edited from to @ by OBDULIO at 02/15/23 144 @ Submitting doctor edited from to @ by OBDULIO at 02/15/23 144 HEADER OPERATION: EGD with polypectomy PRE-OP DIAGNOSIS: GI bleed TISSUE SUBMITTED: Gastric polyps MICROSCOPIC DIAGNOSIS Gastric polyps, polypectomy: Fragments of hyperplastic/inflammatory polyps. Negative for malignancy. See comment. SJ:torsten 02/16/2023 COMMENT Larger polyps also show extensive ulceration and associated inflammation with associated reactive atypia. Please make reference to previous specimen ([id number] A & B) gastric mass, biopsy with diagnosis of hyperplastic polyp. Case has been reviewed in consultation with Dr. Brown who concurs with the above diagnosis. IDC:AM MICROSCOPIC DESCRIPTION Slides are reviewed. GROSS DESCRIPTION Received in fixative is one container labeled with the patient's name and designated gastric polyps. The specimen consists of multiple polypoid fragments of daugherty-pink soft tissue that in aggregate measure 2.5 x 3.5 x 1.0 cm and 0.5 to 2.0 cm in greatest dimension. Also present in the container are multiple fragments of daugherty soft tissue measuring in aggregate 2.5 x 1.5 x 0.2 cm. The smaller polyps are bisected and larger polyps are serially sectioned. The entire specimen is submitted in four cassettes. / TANK:torsten 02/15/2023 TC:5 CPT: 53571
[2023-02-12] MEDS: Pantoprazole Sodium 40 MG in 0.9% Normal Saline (100mL MB+) 100 ML 330 MG IV ×2 (09:35→22:51)
--- NOTE | 2023-02-12 11:16 | PN.HOSP_ITS ---
Reason for Visit Reason for Visit: Diagnoses Anemia, unspecified (02/09/23) Objective Data Objective Data Vital Signs: Vital Signs Temp Pulse Resp BP Pulse Ox O2 Del Method 98.4 F 80 18 123/62 H 97 Room Air 02/12/23 09:31 02/12/23 09:31 02/12/23 09:31 02/12/23 09:31 02/12/23 09:31 02/12/23 09:31 Oxygen Delivery Method Room Air Weight: 297 lb 6.457 oz Body Mass Index (BMI) 42.6 Intake & Output: Intake and Output for Last 24 Hours 02/10/23 02/11/23 02/12/23 23:59 23:59 23:59 Intake Total 1396.0 / 1396.0 110 / 1110 1110 / 1110 Balance 1396.0 / 1396.0 110 / 1110 1110 / 1110 Lab / Micro Data 02/11/23 03:25 02/10/23 09:15 Micro: Microbiology 02/09/23 21:15 Stool Stool Occult Blood (TAYLOR) - Final 02/09/23 20:10 Nasal Secretion SARS-CoV-2 Antigen (Rapid) - Final Physical Exam Narrative No abdominal pain. Patient feeling comfortable. Plan for repeat EGD today denies obvious upper or lower GI bleeding including hematemesis melena or hematochezia. Physical exam General: Alert, Oriented x3, Cooperative, morbid obesity BMI 42.7 kg/m?. HEENT: Pale conjunctive a. Atraumatic, PERRLA, EOMI, Normocephalic Oral: Oral mucosa dry. No Gingival or Mucosal Lesions/ Ulcerations Neck: Supple, No JVD, Negative Carotid Bruits Lungs: Air entry diminished in bilateral lung bases. No crepitation/rhonchi Cardiovascular: Regular rate, Regular Rhythm, Normal S1, Normal S2, No murmurs Abdomen: Bowel Sounds Present, Soft, Non Tender, Non-Distended : No renal angle tenderness. No suprapubic tenderness. Extremities: No edema, Capillary Refill Less than 3 Seconds Skin: No rashes, No breakdown Musculoskeletal: No Tenderness to Palpation of Joints or Extremities Neurological: Cranial nerves II-XII grossly intact, DTR 2+/4. No acute focal neurological deficit. Psych/Mental Status: Normal Affect, Appropriate. Assessment & Plan Assessment/Plan (1) Anemia requiring transfusions: PLAN: Plan 1. Acute anemia associated with iron deficiency-patient is admitted in PCU. Patient required 3 units of PRBC transfusion. Posttransfusion hemoglobin 7.9. Stool for occult blood was negative. Peripheral smear shows polychromasia, hypochromasia anisocytosis and microcytosis suggestive of iron deficiency anemia. CBC shows low MCV MCHC and elevated RDW. Platelet count 443,000 also history of iron versus anemia. Patient had EGD reported normal esophagus multiple gastric polyps resected and retrieved. Normal D2. Colonoscopy reported diverticula in the rectosigmoid colon and sigmoid colon. Large lipoma at hepatic flexure.No specimen collected. Overall patient feeling better after PRBC transfusion 02/12: H&H 7.9/27%. Platelet count 443,000. Plan for repeat EGD today. Dis cussed with GI #2 Acute on chronic iron deficiency anemia-possible due to chronic GI blood loss. Haptoglobin 236 normal. #3 morbid obesity-complicates care, medical course, recovery, and prognosis #4 essential hypertension-patient is on lisinopril, hydrochlorothiazide and amlodipine monitor BP. Currently these medications are on hold. #5 hyperlipidemia-patient is on a statin, this is being held at this time and he can resume the medication when he goes home Charges/Coding Visit Charges Inpatient E&M: 95365 Subs Hosp L2
[2023-02-12] MEDS: Lactated Ringers 1,000 ML 15 ML IV (13:43)
--- NOTE | 2023-02-12 14:52 | OP.EGD_ITS ---
Patient Name: Fidencio Parsons Procedure Date: 02/12/2023 2:18 PM Date of : 1960 Age: 62 Procedure: Upper GI endoscopy Indications: Iron deficiency anemia, Melena Providers: Olayinka Manning DO Medicines: Monitored Anesthesia Care Patient Profile: This is a 62 year old male. Refer to note in patient chart for documentation of history and physical. Patient has symptoms of acute dyspepsia and acute nausea. Complications: No immediate complications. Procedure: Pre-Anesthesia Assessment: - Prior to the procedure, a History and Physical was performed, and patient medications and allergies were reviewed. The patient is competent. The risks and benefits of the procedure and the sedation options and risks were discussed with the patient. All questions were answered and informed consent was obtained. Patient identification and proposed procedure were verified by the physician in the pre-procedure area. Mental Status Examination: alert and oriented. Airway Examination: normal oropharyngeal airway and neck mobility. Respiratory Examination: clear to auscultation. CV Examination: normal. Prophylactic Antibiotics: The patient does not require prophylactic antibiotics. Prior Anticoagulants: The patient has taken no anticoagulant or antiplatelet agents. ASA Grade Assessment: II - A patient with mild systemic disease. After reviewing the risks and benefits, the patient was deemed in satisfactory condition to undergo the procedure. The anesthesia plan was to use monitored anesthesia care (MAC). Immediately prior to administration of medications, the patient was re-assessed for adequacy to receive sedatives. The heart rate, respiratory rate, oxygen saturations, blood pressure, adequacy of pulmonary ventilation, and response to care were monitored throughout the procedure. The physical status of the patient was re-assessed after the procedure. After obtaining informed consent, the endoscope was passed under direct vision. Throughout the procedure, the patient's blood pressure, pulse, and oxygen saturations were monitored continuously. The gastroscope was introduced through the mouth, and advanced to the second part of duodenum. The upper GI endoscopy was accomplished without difficulty. Scope In: 2:27:33 PM Scope Out: 2:47:18 PM Total Procedure Duration Time 0 hours 19 minutes 45 seconds Findings: The examined esophagus was normal. Multiple 28 mm pedunculated and sessile polyps with bleeding and stigmata of recent bleeding were found in the cardia, in the gastric fundus, in the gastric body and on the greater curvature of the stomach. Lavage of the area was performed using a moderate amount of sterile water, resulting in clearance with good visualization. The polyp was removed with a saline injection-lift technique using a hot snare at 20 santiago. Resection and retrieval were complete using a Rubalcava net. [Clip Device]. Area was successfully injected with 10 mL of a 0.1 mg/mL solution of epinephrine for drug delivery. Coagulation for bleeding prevention using heater probe was successful. Estimated blood loss was minimal. The second portion of the duodenum was normal. Impression: - Normal esophagus. - Multiple gastric polyps. Resected and retrieved. Injected. Treated with a heater probe. - Normal second portion of the duodenum. Recommendation: - [facility]. - Full liquid diet today. - No aspirin, ibuprofen, naproxen, or other non-steroidal anti-inflammatory drugs for 4 weeks after polyp removal. - Await pathology results. - Use Protonix (pantoprazole) 40 mg PO BID for 12 weeks. - Use sucralfate tablets 1 gram PO BID for 4 weeks. Procedure Code(s): --- Professional --- 15058, 59, Esophagogastroduodenoscopy, flexible, transoral; with control of bleeding, any method 98064, Esophagogastroduodenoscopy, flexible, transoral; with removal of tumor(s), polyp(s), or other lesion(s) by snare technique 71302, 59,51, Esophagogastroduodenoscopy, flexible, transoral; with directed submucosal injection(s), any substance CPT copyright 2021 [employer]. All rights reserved. The codes documented in this report are preliminary and upon cook frozen dessert review may be revised to meet current compliance requirements. Olayinka Manning DO 02/12/2023 2:52:43 PM This report has been signed electronically. Number of Addenda: 0 Note Initiated On: 02/12/2023 2:18 PM
--- NOTE | 2023-02-12 14:53 | OP.CCLET_ITS ---
02/12/2023 Lida Crenshaw [address] [place] [address] Re : Upper GI endoscopy procedure for Fidencio Parsons Dear Dr. Crenshaw This procedure was performed on Sunday, February 12, 2023. My impressions and recommendations are as follows: Impressions : - Normal esophagus. - Multiple gastric polyps. Resected and retrieved. Injected. Treated with a heater probe. - Normal second portion of the duodenum. Recommendations : - Return patient to [facility] for ongoing care. - Full liquid diet today. - No aspirin, ibuprofen, naproxen, or other non-steroidal anti-inflammatory drugs for 4 weeks after polyp removal. - Await pathology results. - Use Protonix (pantoprazole) 40 mg PO BID for 12 weeks. - Use sucralfate tablets 1 gram PO BID for 4 weeks. My findings are described in the full procedure note, which is enclosed. If I can be of further assistance, please feel free to contact me at . Sincerely, Olayinka Manning, 02/12/2023 2:52:43 PM This report has been signed electronically.
--- NOTE | 2023-02-12 18:52 | NURSING ---
Report called to Heidi in PCU pt is going to room 116.
[2023-02-13 08:05] VITALS: BP 148/78; PULSE 78; RESP 18; TEMP 36.8; O2SAT 97
[2023-02-13 08:43] LABS: Absolute Lymphocyte Count 1.41 X10^3/uL (0.83-4.51); Basophil# 0.03 X10^3/uL; Basophil% 0.3 % (0-1); Eosinophil# 0.36 X10^3/uL; Eosinophils% 4.2 % (0-5); Hemoglobin 7.5 g/dL (13.0-16.5); Lymphocyte # 1.41 X10^3/ul (0.83-4.51); Lymphocyte % 16.4 % (19-41); Mean Corp Hgb Conc 28.8 g/dL (32-36); Mean Corpuscular Hgb 21.3 pg (27.0-32.0); Mean Corpuscular Volume 73.9 fL (80-94); Mean Platelet Vol. 9.3 fl (6.2-12.0); Monocyte# 0.76 X10^3/uL; Monocyte% 8.8 % (0-10); NRBC Flagged by Analyzer 0 % (0-5); Neutrophil % 69.8 % (47-70); POSITIVE MORPHOLOGY YES; Platelet Count 408 K/mm3 (150-450); RBC Distribution Width CV 24.2 % (11.6-14.6); RBC Distribution Width SD 62.5 fl (35.1-43.9); Red Blood Count 3.52 M/mm3 (4.6-6.2); White Blood Count 8.6 K/mm3 (4.4-11.0)
[2023-02-13 08:55] LABS: Differential Indicated SCAN CRITERIA MET
[2023-02-13 09:05] LABS: Anion Gap 4 (5-15); BUN 10 mg/dL (7-18); BUN/Creat Ratio 9.6 RATIO (10-20); Calcium,Total 8.4 mg/dL (8.5-10.1); Chloride 108 mmol/L (98-107); Creatinine, Serum 1.04 mg/dL (0.70-1.30); EST Glomerular Filtration Rate 77 mL/min (>60); Est Glom Filt Rate - Afr Amer 93 mL/min (>60); Estimated Creatinine Clearance 77.99 ml/min; Glucose 92 mg/dL (74-106); Potassium 3.7 mmol/L (3.5-5.1); Sodium Level 138 mmol/L (136-145)
[2023-02-13 09:19] LABS: Anisocytosis 2+; Differential Comment SCANNED
[2023-02-13 09:20] LABS: Macrocytosis 1+; Microcytosis 1+; Ovalocyte RARE; Polychromasia RARE
--- NOTE | 2023-02-13 09:49 | DCINST_ITS ---
Discharge Instructions Diet Discharge Diet: No restrictions Activity Discharge Activity: Return to Normal Activity Weight Bearing Status: Weight bearing as tolerated Dressing / Incision Call your doctor if you observe: Fever of 101 or Higher, Coldness, Increased Pain, Numbness or Tingling, Change in Color, Inability to urinate, Inability to have a bowel movement, Shortness of breath, Dizziness, Fainting spells, Swelling in the ankles, Chest pain, Prolonged hiccupping, Increased palpitations (irregular heartbeat) and Calf discomfort Follow Up Care When: IN 2 WEEKS Test Results: Test results from this visit will be discussed in further detail at your follow- up appointment, if applicable. Discharge Plan Admission Admit Date/Time: 02/09/23 21:35 Attending Provider: Merrick Cruz Primary Care Provider: Lida Crenshaw Consulting Providers: Shawn Arndt; Domo Lee Discharge Orders/Prescriptions Prescriptions: New pantoprazole [Protonix] 40 mg tablet,delayed release (DR/EC) 40 mg PO BID Qty: 60 2RF Rx Instructions: advised TWICE DAILY FOR 12 weeks and then once daily sucralfate [Carafate] 1 gram tablet 1 g PO BID 28 Days Qty: 56 0RF ferrous sulfate [FeroSul] 325 mg (65 mg iron) tablet 325 mg PO DAILY 30 Days Qty: 30 2RF ascorbic acid (vitamin C) 500 mg tablet 500 mg PO BID Qty: 60 2RF Continued lisinopril-hydrochlorothiazide 20-12.5 mg tablet 2 tab PO DAILY atorvastatin 20 mg tablet 20 mg PO DAILY amlodipine 5 mg tablet 5 mg PO QHS Referrals / Follow Up: Lida Crenshaw MD [Primary Care Provider] - Olayinka Manning DO [Med Staff - Active Staff] - Within 1 Month Disposition Disposition (needs filled in before D/C Order can be placed): Home, Self Care
[2023-02-13] MEDS: Pantoprazole Sodium 40 MG in 0.9% Normal Saline (100mL MB+) 100 ML 330 MG IV (10:51)
--- NOTE | 2023-02-13 10:57 | DS.PCM_ITS ---
Providers Date of Admission: 02/09/23 Primary Care Physician: Dr. Lida Crenshaw MD Consultations 02/09/23 23:38 Consult: Gastroenterology Routine Consulting Provider: [facility] Reason for Consult: Severe acute anemia, rule out GI bleed EMERGENT Consult: No MD Notified: Yes Date Notified: 02/09/23 Time Notified: 21:40 Method of Notification: Text Reason For Visit: SEVERE ANEMIA Diagnosis Discharge Diagnosis (1) Anemia requiring transfusions: Status: Acute Code(s): D64.9 - Anemia, unspecified Plan 62-year-old gentleman was admitted with generalized weakness, dyspnea on exertion shortness of breath for 2 to 3 weeks along with bilateral leg swelling understanding. On lab test his hemoglobin was found 5.9 g/22%. 1. Acute anemia associated with iron deficiency-patient is admitted in PCU. Patient required 3 units of PRBC transfusion. Posttransfusion hemoglobin 7.9. Stool for occult blood was negative. Peripheral smear shows polychromasia, hyp ochromasia anisocytosis and microcytosis suggestive of iron deficiency anemia. CBC shows low MCV MCHC and elevated RDW. Platelet count 443,000 also history of iron versus anemia. Patient had EGD reported normal esophagus multiple gastric polyps resected and retrieved. Normal D2. Colonoscopy reported diverticula in the rectosigmoid colon and sigmoid colon. Large lipoma at hepatic flexure.No specimen collected. Overall patient feeling better after PRBC transfusion 02/12: H&H 7.9/27%. Platelet count 443,000. Plan for repeat EGD today. Discussed with GI 02/13: EGD repeat done on 02/12 reported multiple gastric polyps resected and retrieved. Normal esophagus and D2. No aspirin or anti-inflammatories and for 4 weeks after polyp removal. Protonix 40 mg p.o. twice daily for 12 weeks and sucralfate 1 g p.o. twice daily for 4 weeks. Follow-up in GI clinic. #2 Acute on chronic iron deficiency anemia-possible due to chronic GI blood loss. Haptoglobin 236 normal.\ 02/13: Report hemoglobin 7.5/26. Platelet count 408. Prescription given for ferrous sulfate and ascorbic acid. Follow with PCP. #3 morbid obesity-complicates care, medical course, recovery, and prognosis #4 essential hypertension-patient is on lisinopril, hydrochlorothiazide and amlodipine monitor BP. Currently these medications are on hold. #5 hyperlipidemia-patient is on a statin, this is being held at this time and he can resume the medication when he goes home Discharge medication reconciliation done. Discharge follow-up instructions completed. Discharge process discussed with the patient and all questions were answered to patient's satisfaction. Total time spent, exact 35 minutes on discharge meds reconciliation, examination, coordination of care with nurses and ancillary staff, review of im aging and blood test and discussion with the patient on follow-up instructions. Laboratory Results 02/13/23 08:02: WBC 8.6, RBC 3.52 L, Hgb 7.5 L, Hct 26.0 L, MCV 73.9 L, MCH 21.3 L, MCHC 28.8 L, RDW Std Deviation 62.5 H, RDW Coeff of Jennifer 24.2 H, Plt Count 408, MPV 9.3, Immature Gran % (Auto) 0.500, Neut % (Auto) 69.8, Lymph % (Auto) 16.4 L, [place] % (Auto) 8.8, Eos % (Auto) 4.2, Baso % (Auto) 0.3, Absolute Neuts (auto) 6.0, Absolute Lymphs (auto) 1.41, Nucleated RBC % 0, Differential Comment SCANNED, Polychromasia RARE, Anisocytosis 2+, Microcytosis 1+, Macrocytosis 1+, Ovalocytes RARE, Sodium 138, Potassium 3.7, Chloride 108 H, Carbon Dioxide 26.0, Anion Gap 4 L, BUN 10, Creatinine 1.04, Estim Creat Clear Calc 77.99, Est GFR (MDRD) Af Amer 93, Est GFR (MDRD) Non-Af 77, BUN/Creatinine Ratio 9.6 L, Glucose 92, Calcium 8.4 L Medications at Discharge Home Medications amlodipine 5 mg tablet 5 mg PO QHS 02/09/23 atorvastatin 20 mg tablet 20 mg PO DAILY 02/09/23 lisinopril 20 mg-hydrochlorothiazide 12.5 mg tablet 2 tab PO DAILY 02/09/23 ascorbic acid (vitamin C) 500 mg tablet 500 mg PO BID #60 tabs 02/13/23 ferrous sulfate 325 mg (65 mg iron) tablet (FeroSul) 325 mg PO DAILY 30 days #30 tabs 02/13/23 pantoprazole 40 mg tablet,delayed release (Protonix) 40 mg PO BID #60 tabs 02/13/23 sucralfate 1 gram tablet (Carafate) 1 g PO BID 4 weeks #56 tabs 02/13/23 Physical Exam Narrative No abdominal pain acute issues after repeat EGD on 02/12. Breath. Feels better. Physical exam General: Alert, Oriented x3, Cooperative, morbid obesity BMI 42.7 kg/m?. HEENT: Pale conjunctive a. Atraumatic, PERRLA, EOMI, Normocephalic Oral: Oral mucosa dry. No Gingival or Mucosal Lesions/ Ulcerations Neck: Supple, No JVD, Negative Carotid Bruits Lungs: Air entry diminished in bilateral lung bases. No crepitation/rhonchi Cardiovascular: Regular rate, Regular Rhythm, Normal S1, Normal S2, No murmurs Abdomen: Bowel Sounds Present, Soft, Non Tender, Non-Distended : No renal angle tenderness. No suprapubic tenderness. Extremities: No edema, Capillary Refill Less than 3 Seconds Skin: No rashes, No breakdown Musculoskeletal: No Tenderness to Palpation of Joints or Extremities Neurological: Cranial nerves II-XII grossly intact, DTR 2+/4. No acute focal neurological deficit. Psych/Mental Status: Normal Affect, Appropriate. Weight / BMI Weight Weight: 297 lb 6.457 oz Body Mass Index (BMI) 42.6 ABG / Lab / Microbiology Data 02/13/23 08:02 02/13/23 08:02 Laboratory: Laboratory Results - last 24 hr 02/13/23 08:02: WBC 8.6, RBC 3.52 L, Hgb 7.5 L, Hct 26.0 L, MCV 73.9 L, MCH 21.3 L, MCHC 28.8 L, RDW Std Deviation 62.5 H, RDW Coeff of Jennifer 24.2 H, Plt Count 408, MPV 9.3, Immature Gran % (Auto) 0.500, Neut % (Auto) 69.8, Lymph % (Auto) 1 6.4 L, [place] % (Auto) 8.8, Eos % (Auto) 4.2, Baso % (Auto) 0.3, Absolute Neuts (auto) 6.0, Absolute Lymphs (auto) 1.41, Nucleated RBC % 0, Differential Comment SCANNED, Polychromasia RARE, Anisocytosis 2+, Microcytosis 1+, Macrocytosis 1+, Ovalocytes RARE, Sodium 138, Potassium 3.7, Chloride 108 H, Carbon Dioxide 26.0, Anion Gap 4 L, BUN 10, Creatinine 1.04, Estim Creat Clear Calc 77.99, Est GFR (MDRD) Af Amer 93, Est GFR (MDRD) Non-Af 77, BUN/Creatinine Ratio 9.6 L, Glucose 92, Calcium 8.4 L Microbiology: Microbiology 02/09/23 21:15 Stool Stool Occult Blood (TAYLOR) - Final 02/09/23 20:10 Nasal Secretion SARS-CoV-2 Antigen (Rapid) - Final D/C Instructions Discharge Diet: No restrictions Weight Bearing Status: Weight bearing as tolerated Call your doctor if you observe: Fever of 101 or Higher, Coldness, Increased Pain, Numbness or Tingling, Change in Color, Inability to urinate, Inability to have a bowel movement, Shortness of breath, Dizziness, Fainting spells, Swelling in the ankles, Chest pain, Prolonged hiccupping, Increased palpitations (irregular heartbeat) and Calf discomfort When: IN 2 WEEKS Meaningful Use Info Meaningful Use Diagnoses (Choose all that apply): None applicable Discharge Plan Admission Admit Date/Time: 02/09/23 21:35 Attending Provider: Merrick Cruz Primary Care Provider: Lida Crenshaw Consulting Providers: Shawn Arndt; Domo Lee Discharge Orders/Prescriptions Prescriptions: New pantoprazole [Protonix] 40 mg tablet,delayed release (DR/EC) 40 mg PO BID Qty: 60 2RF Rx Instructions: advised TWICE DAILY FOR 12 weeks and then once daily sucralfate [Carafate] 1 gram tablet 1 g PO BID 28 Days Qty: 56 0RF ferrous sulfate [FeroSul] 325 mg (65 mg iron) tablet 325 mg PO DAILY 30 Days Qty: 30 2RF ascorbic acid (vitamin C) 500 mg tablet 500 mg PO BID Qty: 60 2RF Continued lisinopril-hydrochlorothiazide 20-12.5 mg tablet 2 tab PO DAILY atorvastatin 20 mg tablet 20 mg PO DAILY amlodipine 5 mg tablet 5 mg PO QHS Referrals / Follow Up: Lida Crenshaw MD [Primary Care Provider] - Friend,DO Olayinka [Med Staff - Active Staff] - Within 1 Month Disposition Disposition (needs filled in before D/C Order can be placed): Home, Self Care Charges/Coding Visit Charges Inpatient E&M: 26634 Disch Hosp >30min
[2023-02-13 11:00] VITALS: BP 148/78; PULSE 78; RESP 18; TEMP 36.8; O2SAT 97
== END 2023-02-13 12:08 | disposition home or self-care (01) | DRG 394 ==
LOC: ED 21:08 → ICU 02-10 06:55 → PCU 02-13 10:52 → ICU 09-21 15:09 → PCU 09-21 15:13
PROVIDERS: Internal Medicine; Internal Medicine Gastroenterology; Admitting Provider Hospitalist; Emergency Provider Emergency Medicine; PCP Family Medicine; Visit Provider Internal Medicine
PROC: 0DJD8ZZ Inspection of Lower Intestinal Tract, Via Natural or Artificial Opening Endoscopic (ICD-10-PCS; CPT 45378; principal; 2023-02-11 11:25)
PROC: 0DJ08ZZ Inspection of Upper Intestinal Tract, Via Natural or Artificial Opening Endoscopic (ICD-10-PCS; CPT 43235; principal; 2023-02-12 14:30)
DX: K31.7 Polyp of stomach and duodenum (principal); Z68.41 Body mass index [BMI] 40.0-44.9, adult; E66.01 Morbid (severe) obesity due to excess calories; D62 Acute posthemorrhagic anemia; I10 Essential (primary) hypertension; E78.00 Pure hypercholesterolemia, unspecified; K57.30 Diverticulosis of large intestine without perforation or abscess without bleeding; K21.9 Gastro-esophageal reflux disease without esophagitis; D17.5 Benign lipomatous neoplasm of intra-abdominal organs; Z79.899 Other long term (current) drug therapy; R06.02 Shortness of breath; R07.89 Other chest pain
CPT/HCPCS: 43239; 45378; 43255; 43251; 36415; 71045; 71250; 74176; 80048; 81001; 82274; 82607; 82728; 82746; 83010; 83540; 83550; 84484; 85014; 85018; 85025; 86850; 86900; 86901; 86920; 86922; 87811; 88305; 88331; 93005; 94760; 96365; 96366; 97802; 99221; 99285; J7050; J7120; P9016; A4216; G0378; J2405

== ENCOUNTER → 2023-02-17 | Outpatient (CLI) | payer BC, SELFPAY ==
[2023-02-17 12:14] LABS: Absolute Lymphocyte Count 1.53 X10^3/uL (0.83-4.51); Absolute Neutrophil Count 3.9 X10^3/uL (2.0-7.7); Basophil# 0.06 X10^3/uL; Basophil% 0.9 % (0-1); Eosinophil# 0.18 X10^3/uL; Eosinophils% 2.7 % (0-5); Hematocrit 32.6 % (40-54); Hemoglobin 9.2 g/dL (13.0-16.5); Lymphocyte # 1.53 X10^3/ul (0.83-4.51); Lymphocyte % 22.9 % (19-41); Mean Corp Hgb Conc 28.2 g/dL (32-36); Mean Corpuscular Volume 74.4 fL (80-94); Mean Platelet Vol. 9.8 fl (6.2-12.0); Monocyte# 0.96 X10^3/uL; Monocyte% 14.4 % (0-10); NRBC Flagged by Analyzer 0 % (0-5); Neutrophil # 3.92 X10^3/uL (2.7-7.7); Neutrophil % 58.7 % (47-70); POSITIVE MORPHOLOGY YES; Platelet Count 478 K/mm3 (150-450); RBC Distribution Width CV 24.7 % (11.6-14.6); Red Blood Count 4.38 M/mm3 (4.6-6.2); White Blood Count 6.7 K/mm3 (4.4-11.0)
[2023-02-17 12:16] LABS: Differential Indicated SCAN CRITERIA MET
[2023-02-17 13:01] LABS: Vitamin B12 414 pg/mL (211-911)
[2023-02-17 13:13] LABS: ALB/GLOB Ratio 0.8 RATIO (0.9-2.4); AST(SGOT) 23 U/L (15-37); Alanine Aminotransfer ALT/SGPT 27 U/L (16-61); Albumin, Serum 3.2 g/dL (3.2-5.0); Alkaline Phosphatase 101 U/L (45-117); Anion Gap 8 (5-15); BUN 8 mg/dL (7-18); BUN/Creat Ratio 6.1 RATIO (10-20); Calcium,Total 8.8 mg/dL (8.5-10.1); Chloride 103 mmol/L (98-107); Creatinine, Serum 1.32 mg/dL (0.70-1.30); EST Glomerular Filtration Rate 59 mL/min (>60); Est Glom Filt Rate - Afr Amer 71 mL/min (>60); Ferritin 14 ng/mL (26-388); Globulin 4.2 g/dL (2.2-4.2); Glucose 85 mg/dL (74-106); Iron 132 ug/dL (65-175); Iron Binding Capacity,Total 353 ug/dL (250-450); Potassium 3.4 mmol/L (3.5-5.1); Protein, Total 7.4 g/dL (6.4-8.2); Sodium Level 134 mmol/L (136-145)
[2023-02-17 13:41] LABS: Anisocytosis 2+; Differential Comment SCANNED; Hypochromasia 1+; Microcytosis 1+
== END | disposition home or self-care (01) ==
LOC: MFPLAB 11:16
PROVIDERS: PCP Family Medicine; Visit Provider Family Medicine
DX: D64.9 Anemia, unspecified (principal); I10 Essential (primary) hypertension
CPT/HCPCS: 36415; 80053; 82607; 82728; 82746; 83540; 83550; 85025

== ENCOUNTER → 2023-03-16 | Outpatient (CLI) | payer BC, SELFPAY ==
[2023-03-16 10:25] LABS: Absolute Lymphocyte Count 1.24 X10^3/uL (0.83-4.51); Absolute Neutrophil Count 5.8 X10^3/uL (2.0-7.7); Basophil# 0.04 X10^3/uL; Basophil% 0.5 % (0-1); Eosinophil# 0.29 X10^3/uL; Eosinophils% 3.5 % (0-5); Hematocrit 38.2 % (40-54); Hemoglobin 11.5 g/dL (13.0-16.5); Lymphocyte # 1.24 X10^3/ul (0.83-4.51); Lymphocyte % 15.2 % (19-41); Mean Corp Hgb Conc 30.1 g/dL (32-36); Mean Corpuscular Hgb 23.9 pg (27.0-32.0); Mean Corpuscular Volume 79.3 fL (80-94); Mean Platelet Vol. 9.4 fl (6.2-12.0); Monocyte# 0.77 X10^3/uL; Monocyte% 9.4 % (0-10); NRBC Flagged by Analyzer 0 % (0-5); Neutrophil % 70.9 % (47-70); POSITIVE MORPHOLOGY YES; Platelet Count 418 K/mm3 (150-450); RET-HE 33.4 pg (30-35); Red Blood Count 4.82 M/mm3 (4.6-6.2); Reticulocyte Count 1.54 % (0.5-1.5); White Blood Count 8.2 K/mm3 (4.4-11.0)
[2023-03-16 10:59] LABS: Ferritin 24 ng/mL (26-388); Iron 39 ug/dL (65-175)
[2023-03-16 11:29] LABS: Differential Indicated SCAN CRITERIA MET
== END | disposition home or self-care (01) ==
LOC: MFPLAB 09:40
PROVIDERS: PCP Family Medicine; Visit Provider Family Medicine
DX: D64.9 Anemia, unspecified (principal)
CPT/HCPCS: 36415; 82728; 83540; 85025; 85045

== ENCOUNTER → 2023-06-28 | Outpatient (CLI) | payer BC, SELFPAY ==
[2023-06-28 11:57] LABS: Absolute Lymphocyte Count 1.25 X10^3/uL (0.83-4.51); Absolute Neutrophil Count 7.2 X10^3/uL (2.0-7.7); Basophil# 0.05 X10^3/uL; Basophil% 0.5 % (0-1); Eosinophils% 3.2 % (0-5); Hematocrit 43.2 % (40-54); Lymphocyte # 1.25 X10^3/ul (0.83-4.51); Lymphocyte % 13.1 % (19-41); Mean Corp Hgb Conc 32.4 g/dL (32-36); Mean Corpuscular Hgb 30.4 pg (27.0-32.0); Mean Corpuscular Volume 93.9 fL (80-94); Mean Platelet Vol. 10.3 fl (6.2-12.0); Monocyte# 0.65 X10^3/uL; Monocyte% 6.8 % (0-10); NRBC Flagged by Analyzer 0 % (0-5); Neutrophil # 7.24 X10^3/uL (2.7-7.7); Neutrophil % 76.1 % (47-70); Platelet Count 306 K/mm3 (150-450); RBC Distribution Width CV 14.2 % (11.6-14.6); RBC Distribution Width SD 49.4 fl (35.1-43.9); RET-HE 36.4 pg (30-35); Reticulocyte Count 1.39 % (0.5-1.5); White Blood Count 9.5 K/mm3 (4.4-11.0)
[2023-06-28 12:25] LABS: Ferritin 118 ng/mL (26-388); Iron 83 ug/dL (65-175)
== END | disposition home or self-care (01) ==
LOC: MFPLAB 09:44
PROVIDERS: PCP Family Medicine; Visit Provider Family Medicine
DX: D64.9 Anemia, unspecified (principal)
CPT/HCPCS: 36415; 82728; 83540; 85025; 85045

== ENCOUNTER → 2023-12-27 | Outpatient (CLI) | payer BC, SELFPAY ==
[2023-12-27 12:26] LABS: AST(SGOT) 100 U/L (15-37); Alanine Aminotransfer ALT/SGPT 59 U/L (16-61); Anion Gap 10 (5-15); BUN 18 mg/dL (7-18); BUN/Creat Ratio 14.2 RATIO (10-20); Calcium,Total 9.5 mg/dL (8.5-10.1); Chloride 106 mmol/L (98-107); Cholesterol 159 mg/dL (200); Creatinine, Serum 1.27 mg/dL (0.70-1.30); EST Glomerular Filtration Rate 61 mL/min (>60); Est Glom Filt Rate - Afr Amer 74 mL/min (>60); Glucose 109 mg/dL (74-106); High Density Lipoprotein 48 mg/dL; PSA,Total - Annual Screen 0.39 ng/mL (0.00-4.00); Potassium 3.9 mmol/L (3.5-5.1); Sodium Level 139 mmol/L (136-145); Triglycerides 187 mg/dL; Very Low Density Lipoprotein 37 mg/dL (5-40)
== END | disposition home or self-care (01) ==
LOC: MFPLAB 10:15
PROVIDERS: PCP Family Medicine; Visit Provider Family Medicine
DX: I10 Essential (primary) hypertension (principal); E78.5 Hyperlipidemia, unspecified; Z12.5 Encounter for screening for malignant neoplasm of prostate
CPT/HCPCS: 36415; 80048; 80061; 84153; 84450; 84460; G0103

== ENCOUNTER → 2024-04-11 | Outpatient (CLI) | payer OTHER, SELFPAY ==
[2024-04-11 11:09] LABS: Absolute Lymphocyte Count 1.84 X10^3/uL (0.83-4.51); Absolute Neutrophil Count 5.8 X10^3/uL (2.0-7.7); Basophil# 0.05 X10^3/uL; Basophil% 0.5 % (0-1); Eosinophil# 0.74 X10^3/uL; Eosinophils% 8.1 % (0-5); Hematocrit 38.2 % (40-54); Lymphocyte # 1.84 X10^3/ul (0.83-4.51); Lymphocyte % 20.2 % (19-41); Mean Corpuscular Hgb 31.9 pg (27.0-32.0); Mean Corpuscular Volume 93.6 fL (80-94); Mean Platelet Vol. 10.2 fl (6.2-12.0); Monocyte# 0.65 X10^3/uL; Monocyte% 7.1 % (0-10); NRBC Flagged by Analyzer 0 % (0-5); Neutrophil # 5.77 X10^3/uL (2.7-7.7); Neutrophil % 63.6 % (47-70); Platelet Count 327 K/mm3 (150-450); RBC Distribution Width CV 12.6 % (11.6-14.6); RBC Distribution Width SD 43.6 fl (35.1-43.9); Red Blood Count 4.08 M/mm3 (4.6-6.2); Reticulocyte Count 1.95 % (0.5-1.5); White Blood Count 9.1 K/mm3 (4.4-11.0)
[2024-04-11 11:43] LABS: Ferritin 105 ng/mL (26-388); Iron 73 ug/dL (65-175); Iron Binding Capacity,Total 280 ug/dL (250-450); LDH 147 U/L (87-241)
[2024-04-12 15:08] LABS: Endomysial Antibody IgA Negative (Negative); Immunoglobulin A 263 mg/dL (61-437); t-Transglutaminase IgA <2 U/mL (0-3)
== END | disposition home or self-care (01) ==
LOC: LAB 09:58
PROVIDERS: PCP Family Medicine; Referring Provider Internal Medicine Gastroenterology; Visit Provider Internal Medicine Gastroenterology
DX: K92.2 Gastrointestinal hemorrhage, unspecified (principal); D64.9 Anemia, unspecified
CPT/HCPCS: 36415; 82728; 82784; 83516; 83540; 83550; 83615; 85025; 85045; 86255

== ENCOUNTER 2024-04-25 08:30 | Outpatient (RCR) | payer OTHER, SELFPAY ==
--- NOTE | 2024-04-11 07:52 | HP.PTEVAL ---
Patient's Visit Information Visit Information Visit Information: JUSTIN CARDONA is a 64 year old M referred to Physical Therapy by Dr. Lida Crenshaw MD with a diagnosis of R RTC strain. Date of Evaluation: 04/10/24 Physical Therapist: Lamine Nielsen DPT Visit Plan Frequency: 1x/Week Duration: 4 Weeks Plan: 1) slow remodeling of RTC tissue. Progressive loading of tissue as tolerated 2) scapular and periscapular strengthening. Pt. given HEP including phase III RTC. Bands given today. Pt. desires to complete HEP on his own for 2 weeks then follow back up with PT. Subjective Subjective: Pt. is here today for his initial evaluation with diagnosis of R RTC strain. Pt. reports hurting his R shoulder in 88'/89' when he collided with a teammate during softball game. Pt. reports progressively worsening symptoms with his shoulder. Pt. reports ~1 year ago hurting it again. It has been rough since. Pt. reports pain is constant now. Pt. reports not really using his R arm due to his pain. He reports increased pain with lifting, raising his arm up. Sleeping is very tough. 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 Pt. reports using tylenol with some relief, but not abolishment. Pt. is also using creams, but not good relief. Pt. is hopeful to reduce symptoms in order to complete all work and recreational activities without limitations. Pain R shoulder: Pain Intensity (Out of 10): 5 Pain Intensity Range: 3 and 8 Objective Objective: POSTURE: Pt. has slight rounded posture with forward shoulders. PALPATION: Pt. has tenderness as anterior aspect of R shoulder in bicpital groove and supraspinatus insertion. NEURO: Pt. has normal DTR and normal sensation in BUEs. ROM: AROM: R shoulder: flexion 165deg increase in pain, abd 160deg increase in pain, functional ER C2 aberrant motion, functional IR L2 NE. PROM: R shoulder flexion 170deg increase NW at end range, abd 170deg increase NW at end range, ER at 90deg of abduction 80deg increase NW, IR at 90deg of abduction 30deg increase NW. MMT: R shoulder: ER 11.3# increase in pain, IR 21.3# NW, flexion 5# increase in symptoms, abd 6# increase NW. L shoulder: ER 21.8#, IR 22.8#, flexion 15#, abd 17.8#. Pt. had no pain with L shoulder testing. Balance/Special Test Scores Quick DASH Score: 72.7250 Goals Goal 1:: LTG: Pt. to be I with HEP. Goal Time Frame: 4-6 Weeks Goal 2:: LTG: Pt. to have increased R shoulder AROM to full without increase in pain. Goal Time Frame: 4-6 Weeks Goal 3:: LTG: Pt. to sleep throughout the night without increase in R shoulder pain. Goal Time Frame: 4-6 Weeks Goal 4:: LTG: Pt. to have symmetrical strength between BUEs. Goal Time Frame: 4-6 Weeks Goal 5:: LTG: Pt. to complete all work activities without increase in R shoulder pain. Goal Time Frame: 4-6 Weeks Rehabilitation Potential Physical Therapy Diagnosis: Pt. has signs and symptoms consistent with R RTC strain. Due to the nature of mechanism and length of injury as well as RTC weakness with pain suggest RTC tear. Pt. would benefit from PT to address his weakness and to remodel his tissue. Rehabilitation Potential: Fair Anticipated Interventions Patient/Client Instruction: Educate patient on: Condition, Plan of Care, Risk Factors and Benefits of Fitness Program For the Purpose of:: To foster healthy habits, To improve decision making, To facilitate caregiver knowledge, To improve self management, To prevent re-injury and To improve ability to perform tasks related to life management Therapeutic Exercise to Include: Strength training, Postural training, Flexibilty training, Passive ROM, Active ROM and Scapular Strength/Stabilization For the Purpose of:: To decrease pain, To increase ROM, To improve nutrient delivery to tissue, To increase oxygenation perfusion, To improve muscle performance and motor function, To improve ability to perform ADL's, To increase tolerance to activity/condition/position, To improve health of tissue and To increase flexibility/ROM Manual Therapy Techniques to Include: Mobilization For the Purpose of:: To decrease pain and To increase ROM Text: Thank you for the opportunity to evaluate your patient. For Medicare and Medicare HMO plans, please review the plan of care and approve it. It will need to be FAXED BACK to us at [phone] for Medicare purposes. For Medicare only, by signing this I certify the plan of care. Please let me know if there are questions or concerns regarding this plan of care. Physician Signature: Date:
== END 2024-04-25 19:00 | disposition home or self-care (01) ==
LOC: PT 08:30
PROVIDERS: PCP Family Medicine; Referring Provider Family Medicine; Visit Provider Family Medicine
DX: S46.011D Strain of muscle(s) and tendon(s) of the rotator cuff of right shoulder, subsequent encounter (principal)
CPT/HCPCS: 97110; 97161

== ENCOUNTER → 2024-09-22 | Outpatient (CLI) | payer OTHER, SELFPAY ==
--- NOTE | 2024-09-22 08:41 | EKG12_ITS ---
Test Reason : PREOP Blood Pressure : */* mmHG Vent. Rate : 98 BPM Atrial Rate : 98 BPM P-R Int : 180 ms QRS Dur : 88 ms QT Int : 354 ms P-R-T Axes : 43 0 18 degrees QTcB Int : 451 ms Normal sinus rhythm Normal ECG Confirmed by MODESTO OAKLEY, CHANELLE ([id number]), acquisition editor JENNIFER PAZ ([id number]) on 09/22/2024 1:15:20 PM Referred By: Brandon Miller Confirmed By: CHANELLE SALVADOR MD
== END | disposition home or self-care (01) ==
LOC: PSN 08:38
PROVIDERS: PCP Family Medicine; Referring Provider Student in an Organized Health Care Education/Training Program; Visit Provider Student in an Organized Health Care Education/Training Program
DX: Z01.818 Encounter for other preprocedural examination (principal)
CPT/HCPCS: 93005

== ENCOUNTER → 2024-11-01 | Outpatient (CLI) | payer OTHER, SELFPAY ==
[2024-11-01 10:29] LABS: Absolute Neutrophil Count 5.5 X10^3/uL (2.0-7.7); Basophil# 0.04 X10^3/uL; Basophil% 0.5 % (0-1); Eosinophil# 0.32 X10^3/uL; Eosinophils% 4.1 % (0-5); Hemoglobin 13.4 g/dL (13.0-16.5); Lymphocyte % 15.2 % (19-41); Mean Corp Hgb Conc 34.4 g/dL (32-36); Mean Corpuscular Hgb 31.2 pg (27.0-32.0); Mean Corpuscular Volume 90.9 fL (80-94); Mean Platelet Vol. 9.7 fl (6.2-12.0); Monocyte# 0.78 X10^3/uL; Monocyte% 9.9 % (0-10); NRBC Flagged by Analyzer 0 % (0-5); Neutrophil # 5.48 X10^3/uL (2.7-7.7); Neutrophil % 69.7 % (47-70); Platelet Count 379 K/mm3 (150-450); RBC Distribution Width CV 12.8 % (11.6-14.6); RBC Distribution Width SD 41.6 fl (35.1-43.9); Red Blood Count 4.29 M/mm3 (4.6-6.2); White Blood Count 7.9 K/mm3 (4.4-11.0)
[2024-11-01 11:54] LABS: Anion Gap 15 (5-15); BUN 11 mg/dL (4-19); Calcium,Total 9.2 mg/dL (7.6-11.0); Carbon Dioxide 23.4 mmol/L (21.0-32.0); Chloride 100 mmol/L (98-108); Creatinine, Serum 1.05 mg/dL (0.70-1.20); EST Glomerular Filtration Rate 80 (>60); Glucose 100 mg/dL (70-99); Potassium 4.1 mmol/L (3.3-5.1); Sodium Level 138 mmol/L (133-145)
--- OUTSIDE RECORDS SUMMARY | 2024-11-01 19:06 | XMS RPT_ITS | CCD ---
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 Lida Crenshaw Primary Care Provider MD Michael Herrera Emergency Provider Dr. Shawn Arndt Admit Provider Dr. Shawn Arndt Other Provider Dr. Domo Lee Attending Provider Dr. Domo Lee Other Provider Dr. Merrick Cruz Other Provider Dr. Olayinka Manning Attending Provider Dr. Merrick Cruz Attending Provider Dr. Merrick Cruz Referring Provider Dr. Lida Crenshaw Primary Care Provider Dr. Lida Crenshaw Referring Provider Dr. Olayinka Manning Attending Provider Dr. Lida Crenshaw Primary Care Provider Dr. Lida Crenshaw Referring Provider Dr. Olayinka Manning Attending Provider Dr. Lida Crenshaw MD Primary Care Provider Dr. Brandon Miller DO Attending Provider Dr. Brandon Miller DO Referring Provider Dr. Faisal Miller MD Attending Provider Lida Crenshaw Primary Care Unavailable Olayinka Manning Attending Unavailable Olayinka Manning Referring Unavailable Jolliff, Lida S Primary Care Unavailable Brandon Miller Attending Unavailable SpittleBrandon Referring Unavailable Jolliff, Lida S Primary Care Unavailable Jolliff, Lida S Attending Unavailable Friend, Olayinka Attending Unavailable Jolliff, Lida S Primary Care Unavailable Jolliff, Lida S Primary Care Unavailable Mervatle, Brandon Referring Unavailable Faisal Miller Attending Unavailable Jolliff, Lida S Referring Unavailable Friend, Olayinka Attending Unavailable Jolliff, Lida S Primary Care Unavailable Jolliff, Lida S Attending Unavailable Jolliff, Lida S Referring Unavailable Jolliff, Lida S Primary Care Unavailable Medications Current Medications Medication Drug Class(es) Dates Sig (Normalized) Sig (Original) amLODIPine 5 mg oral tablet (12 sources) Dihydropyridine Calcium Channel Emilie Start: 3 take 1 tablet by mouth at bedtime Amlodipine 5 mg tablet Active 5 mg PO AT BEDTIME February 09, 2023 12:00am atorvastatin 20 mg oral tablet (12 sources) HMG-CoA Reductase Inhibitor Start: 3 take 1 tablet by mouth once daily Atorvastatin 20 mg tablet Active 20 mg PO DAILY February 09, 2023 12:00am hydroCHLOROthiazide 12.5 mg / lisinopril 20 mg oral tablet (12 sources) Thiazide Diuretic, Angiotensin Converting Enzyme Inhibitor Start: 3 Lisinopril-[place] chlorothiazide 20-12.5 mg tablet Active 2 {tbl} PO DAILY February 09, 2023 12:00am Start: 02-09-2023 take 2 tablets by mouth once daily Lisinopril-Hydrochlorothiazide Active 2 TABLET PO DAILY February 09, 2023 12:00am Completed/Discontinued Medications Medication Drug Class(es) Dates Sig (Normalized) Sig (Original) ascorbic acid 500 mg oral tablet (11 sources) Vitamin C Start: 02-13-2023 End: 03-17-2024 take 1 tablet by mouth twice daily Ascorbic Acid (Vitamin C) 500 mg tablet Discontinued 500 mg PO TWICE A DAY 60 February 13, 2023 12:00am March 17, 2024 7:49am ferrous sulfate 325 mg oral tablet (11 sources) Start: 02-13-2023 End: 03-17-2024 take 1 tablet by mouth once daily Ferrous Sulfate (Ferosul) 325 mg (65 mg iron) tablet Discontinued 325 mg PO DAILY February 13, 2023 12:00am March 17, 2024 7:50am pantoprazole 40 mg delayed release oral tablet (20 sources) Proton Pump Inhibitor Start: 07-12-2023 End: 03-17-2024 take 1 tablet by mouth once daily Pantoprazole (Protonix) 40 mg tablet,delayed release (DR/EC) Discontinued 40 mg PO DAILY August 23, 2023 8:50am March 17, 2024 8:06am Start: 02-13-2023 End: 07-12-2023 Pantoprazole (Protonix) 40 m g tablet,delayed release (DR/EC) Discontinued 40 mg PO DAILY June 10, 2023 11:44am July 12, 2023 1:26pm advised TWICE DAILY FOR 12 weeks and then once daily sucralfate 1000 mg oral tablet (11 sources) Aluminum Complex Start: 02-13-2023 End: 04-01-2023 take 1 tablet by mouth twice daily Sucralfate (Carafate) 1 gram tablet Discontinued 1 g PO TWICE A DAY February 13, 2023 12:00am April 01, 2023 3:43pm Problems Active Problems Problem Classification Problem Date Documented Da te Episodic/Chronic Deficiency and other anemia (12 sources) Anemia; Translations: [Anemia, unspecified] 02-09-2023 Episodic Essential hypertension (1 source) Essential (primary) hypertension; Translations: [Essential (primary) hypertension] Onset: 01-31-2024 Chronic Malaise and fatigue (16 sources) Asthenia; Translations: [Weakness] 02-09-2023 Episodic Other lower respiratory disease (12 sources) Dyspnea on exertion; Translations: [Other forms of dyspnea] 02-09-2023 Episodic Other lower respiratory disease (4 sources) Other forms of dyspnea; Translations: [Other respiratory abnormalities] 02-09-2023 Episodic Sprains and strains (1 source) Strain of muscle(s) and tendon(s) of the rotator cuff of right shoulder, initial encounter; Translations: [Strain of muscle(s) and tendon(s) of the rotator cuff of right shoulder, initial encounter] Onset: 10-04-2024 Episodic Past or Other Problems Problem Classification Problem Date Documented Da te Episodic/Chronic Deficiency and other anemia (3 sources) Anemia, unspecified; Translations: [Anemia, unspecified] Onset: 4 02-09-2023 Episodic Gastrointestinal hemorrhage (15 sources) Gastrointestinal hemorrhage; Translations: [Gastrointestinal hemorrhage, unspecified] Onset: 4 04-01-2023 Episodic Results Test Name Value Interpretation Reference Range Facility 12 Lead EKGon 09-22-2024 12 Lead EKG [facility] [address] [place] [address] 12 Lead EKG 09/22/24 0849 MR#: [id number] Acct: [id number] Name: JUSTIN CARDONA Rep #: [id number] : 1960 64 From: Faisal Miller MD Attending Dr: Dr. Brandon Miller DO Status: REG CLI Ordering Dr: Brandon Miller DO Date: 09/22/24 Location: [facility] Sex: M C Admitted: Test Reason : PREOP Blood Pressure : */* mmHG Vent. Rate : 98 BPM Atrial Rate : 98 BPM P-R Int : 180 ms QRS Dur : 88 ms QT Int : 354 ms P-R-T Axes : 43 0 18 degrees QTcB Int : 451 ms Normal sinus rhythm Normal ECG Confirmed by FAISAL MILLER MD ([id number]), map editor JENNIFER PAZ ([id number]) on 09/22/2024 1:15:20 PM Referred By: Brandon Miller Confirmed By: FAISAL MILLER MD 09/22/24 1315 Date Faisal Miller MD CC: Dr. Lida Crenshaw MD; Dr. Brandon Miller DO Signed Normal [facility] Electrocardiogram reportOrde red By: Faisal Miller on 09-22-2024 EKG study [facility] [address] [place] [address] 12 Lead EKG 09/22/24 0849 MR#: [id number] Acct: [id number] Name: JUSTIN CARDONA Rep #:[id number] : 1960 64 From: Faisal Miller MD Attending Dr: Dr. Brandon Miller DO Status: REG CLI Ordering Dr: Brandon Miller DO Date: 09/22/24 Location: [facility] Sex: M C Admitted: Test Reason : PREOP Blood Pressure : */* mmHG Vent. Rate : 98 BPM Atrial Rate : 98 BPM P-R Int : 180 ms QRS Dur : 88 ms QT Int : 354 ms P-R-T Axes : 43 0 18 degrees QTcB Int : 451 ms Normal sinus rhythm Normal ECG Confirmed by MODESTO OAKLEY, FAISAL ([id number]), map editor JENNIFER PAZ ([id number]) on 09/22/2024 1:15:20 PM Referred By: Brandon Miller Confirmed By: FAISAL MILLER MD 09/22/24 1315 Date _ Faisal Miller MD CC: Dr. Lida Crenshaw MD; Dr. Brandon Miller DO ~ Signed [facility] Other Phone: Celiac Disease Profileon ENDOMYSIAL IGA Negative Normal Negative [facility] Comment on above: Performed By: #### L 503.6075, L504.2610, L100.9950, L100.0100, L3410.2400, L503.6150, L503.6550 #### [facility] [address] [facility] [facility] [place], [address] IMMUNOGLOB A QN 263 mg/dL Normal 61-437 [facility] Comment on above: Result Comment: Perf ormed at: - [facility] [address] [id number] Tissue Technologist: Dallas Durbin PhD, Phone: [phone] Performed By: #### L 503.6075, L504.2610, L100.9950, L100.0100, L3410.2400, L503.6150, L503.6550 #### [facility] [address] [place], [place], [id number] tTG IGA <2 Normal 0-3 [facility] Comment on above: Result Comment: Nega tive 0 - 3 Weak Positive 4 - 10 Positive >10 Tissue Transglutaminase (tTG) has been identified as the endomysial antigen. Studies have demonstr- ated that endomysial IgA antibodies have over 99% specificity for gluten sensitive enteropathy. Performed By: #### L 503.6075, L504.2610, L100.9950, L100.0100, L3410.2400, L503.6150, L503.6550 #### [facility] [address] [place], [place], [id number] CBC W/Diff, Automatedon 11- Absolute Lymph 1.84 X10 3/uL Normal 0.83-4.51 [facility] Comment on above: Performed By: #### L 503.6075, L504.2610, L100.9950, L100.0100, L3410.2400, L503.6150, L503.6550 #### [facility] [address] [place], [place], [id number] Absolute Neut 5.8 X10 3/uL Normal 2.0-7.7 [facility] Comment on above: Performed By: #### L 503.6075, L504.2610, L100.9950, L100.0100, L3410.2400, L503.6150, L503.6550 #### [facility] [address] [place], [place], [id number] (859) Basophils/100 WBC (Bld) 0.5 % Normal 0-1 [facility] Comment on above: Performed By: #### L 503.6075, L504.2610, L100.9950, L100.0100, L3410.2400, L503.6150, L503.6550 #### [facility] [address] [place], [address] Eosinophils/100 WBC (Bld) 8.1 % High 0-5 [facility] Comment on above: Performed By: #### L 503.6075, L504.2610, L100.9950, L100.0100, L3410.2400, L503.6150, L503.6550 #### [facility] [address] [place], [address] Erythrocyte distribution width (RBC) [Ratio] 12.6 % Normal 11.6-14.6 [facility] Comment on above: Performed By: #### L 503.6075, L504.2610, L100.9950, L100.0100, L3410.2400, L503.6150, L503.6550 #### [facility] [address] [facility] [place], [address] Hematocrit (Bld) [Volume fraction] 38.2 % Low 40-54 [facility] Comment on above: Performed By: #### L 503.6075, L504.2610, L100.9950, L100.0100, L3410.2400, L503.6150, L503.6550 #### [facility] [address] [place], [address] Hemoglobin (Bld) [Mass/Vol] 13.0 g/dL Normal 13.0-16.5 [facility] Comment on above: Performed By: #### L 503.6075, L504.2610, L100.9950, L100.0100, L3410.2400, L503.6150, L503.6550 #### [facility] [address] [place], [address] IG% 0.500 Normal 0.0-0.9 [facility] Comment on above: Result Comment: IG% - Immature Granulocytes (promyelocytes, myelocytes and metamyelocytes) > 1% indicates that a LEFT SHIFT is Present. Performed By: #### L 503.6075, L504.2610, L100.9950, L100.0100, L3410.2400, L503.6150, L503.6550 #### [facility] [address] [place], [address] Lymphocytes/100 WBC (Bld) 20.2 % Normal 19-41 [facility] Comment on above: Performed By: #### L 503.6075, L504.2610, L100.9950, L100.0100, L3410.2400, L503.6150, L503.6550 #### [facility] [address] [place], [address] MCH (RBC) [Entitic mass] 31.9 pg Normal 27.0-32.0 [facility] Comment on above: Performed By: #### L 503.6075, L504.2610, L100.9950, L100.0100, L3410.2400, L503.6150, L503.6550 #### [facility] [address] [place], [address] MCHC (RBC) [Mass/Vol] 34.0 g/dL Normal 32-36 [facility] Comment on above: Performed By: #### L 503.6075, L504.2610, L100.9950, L100.0100, L3410.2400, L503.6150, L503.6550 #### [facility] [address] [place], [address] MCV (RBC) [Entitic vol] 93.6 fL Normal 80-94 [facility] Comment on above: Performed By: #### L 503.6075, L504.2610, L100.9950, L100.0100, L3410.2400, L503.6150, L503.6550 #### [facility] [address] [place], [address] Monocytes/100 WBC (Bld) 7.1 % Normal 0-10 [facility] Comment on above: Performed By: #### L 503.6075, L504.2610, L100.9950, L100.0100, L3410.2400, L503.6150, L503.6550 #### [facility] [address] [place], [address] Neutrophils/100 WBC (Bld) 63.6 % Normal 47-70 [facility] Comment on above: Performed By: #### L 503.6075, L504.2610, L100.9950, L100.0100, L3410.2400, L503.6150, L503.6550 #### [facility] [address] [place], [address] Nucleated RBC (Bld) [#/Vol] 0 10*3/uL Normal 0-5 [facility] Comment on above: Performed By: #### L 503.6075, L504.2610, L100.9950, L100.0100, L3410.2400, L503.6150, L503.6550 #### [facility] [address] [place], [address] Platelet mean volume (Bld) [Entitic vol] 10.2 fL Normal 6.2-12.0 [facility] Comment on above: Performed By: #### L 503.6075, L504.2610, L100.9950, L100.0100, L3410.2400, L503.6150, L503.6550 #### [facility] [address] [place], [address] Platelets (Bld) [#/Vol] 327 10*3/uL Normal 150-450 [facility] Comment on above: Performed By: #### L 503.6075, L504.2610, L100.9950, L100.0100, L3410.2400, L503.6150, L503.6550 #### [facility] [address] [place], [address] RBC (Bld) [#/Vol] 4.08 10*6/uL Low 4.6-6.2 [facility] Comment on above: Performed By: #### L 503.6075, L504.2610, L100.9950, L100.0100, L3410.2400, L503.6150, L503.6550 #### [facility] [address] [place], [address] RDW SD 43.6 fl Normal 35.1-43.9 [facility] Comment on above: Performed By: #### L 503.6075, L504.2610, L100.9950, L100.0100, L3410.2400, L503.6150, L503.6550 #### [facility] [address] [place], [address] WBC (Bld) [#/Vol] 9.1 10*3/uL Normal 4.4-11.0 [facility] Comment on above: Performed By: #### L 503.6075, L504.2610, L100.9950, L100.0100, L3410.2400, L503.6150, L503.6550 #### [facility] [address] [place], [address] Ferritinon 04-11-2024 Ferritin [Mass/Vol] 105 ng/mL Normal 26-388 [facility] Comment on above: Order Comment: 1 Performed By: #### L 503.6075, L504.2610, L100.9950, L100.0100, L3410.2400, L503.6150, L503.6550 #### [facility] [address] [place], [place], [id number] ([phone]) Inital Evaluation (1) - PTon 04-11-2024 Inital Evaluation (1) - PT [facility] [address] [place] [address] / REHABILITATION SERVICES INITIAL EVALUATION MR#: [id number] Acct: [id number] Name: JUSTIN CARDONA Rep #: [id number] : 1960 64 From: Lamine Nielsen DPT Referring Dr.: Dr. Lida Crenshaw MD Status: RE G RCR Insurance: [employer] EXCH[employer] PLAN [facility] PACKAGE PLAN Patient's Visit Information Visit Information Visit Information: JUSTIN CARDONA is a 64 year old M referred to Physical Therapy by Dr. Lida Crenshaw MD with a diagnosis of R RTC strain. Date of Evaluation: 04/10/24 Physical Therapist: Lamine Nielsen DPT Visit Plan Frequency: 1x/Week Duration: 4 Weeks Plan: 1) slow remodeling of RTC tissue. Progressive loading of tissue as tolerated 2) scapular and periscapular strengthening. Pt. given HEP including phase III RTC. Bands given today. Pt. desires to complete HEP on his own for 2 weeks then follow back up with PT. Subjective Subjective: Pt. is here today for his initial evaluation with diagnosis of R RTC strain. Pt. reports hurting his R shoulder in 88'/89' when he collided with a teammate during softball game. Pt. reports progressively worsening symptoms with his shoulder. Pt. reports 1 year ago hurting it again. It has been rough since. Pt. reports pain is constant now. Pt. reports not really using his R arm due to his pain. He reports increased pain with lifting, raising his arm up. Sleeping is very tough. 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 Pt. reports using tylenol with some relief, but not abolishment. Pt. is also using creams, but not good relief. Pt. is hopeful to reduce symptoms in order to complete all work and recreational activities without limitations. Pain R shoulder: Pain Intensity (Out of 10): 5 Pain Intensity Range: 3 and 8 Objective Objective: POSTURE: Pt. has slight rounded posture with forward shoulders. PALPATION: Pt. has tenderness as anterior aspect of R shoulder in bicpital groove and supraspinatus insertion. NEURO: Pt. has normal DTR and normal sensation in BUEs. ROM: AROM: R shoulder: flexion 165deg increase in pain, abd 160deg increase in pain, functional ER C2 aberrant motion, functional IR L2 NE. PROM: R shoulder flexion 170deg increase NW at end range, abd 170deg increase NW at end range, ER at 90deg of abduction 80deg increase NW, IR at 90deg of abduction 30deg increase NW. MMT: R shoulder: ER 11.3# increase in pain, IR 21.3# NW, flexion 5# increase in symptoms, abd 6# increase NW. L shoulder: ER 21.8#, IR 22.8#, flexion 15#, abd 17.8#. Pt. had no pain with L shoulder testing. Balance/Special Test Scores Quick DASH Score: 72.7250 Goals Goal 1:: LTG: Pt. to be I with HEP. Goal Time Frame: 4-6 Weeks Goal 2:: LTG: Pt. to have increased R shoulder AROM to full without increase in pain. Goal Time Frame: 4-6 Weeks Goal 3:: LTG: Pt. to sleep throughout the night without increase in R shoulder pain. Goal Time Frame: 4-6 Weeks Goal 4:: LTG: Pt. to have symmetrical strength between BUEs. Goal Time Frame: 4-6 Weeks Goal 5:: LTG: Pt. to complete all work activities without increase in R shoulder pain. Goal Time Frame: 4-6 Weeks Rehabilitation Potential Physical Therapy Diagnosis: Pt. has signs and symptoms consistent with R RTC strain. Due to the nature of mechanism and length of injury as well as RTC weakness with pain suggest RTC tear. Pt. would benefit from PT to address his weakness and to remodel his tissue. Rehabilitation Potential: Fair Anticipated Interventions Patient/Client Instruction: Educate patient on: Condition, Plan of Care, Risk Factors and Benefits of Fitness Program For the Purpose of:: To foster healthy habits, To improve decision making, To facilitate caregiver knowledge, To improve self management, To prevent re-injury and To improve ability to perform tasks related to life management Therapeutic Exercise to Include: Strength training, Postural training, Flexibilty training, Passive ROM, Active ROM and Scapular Strength/Stabilization For the Purpose of:: To decrease pain, To increase ROM, To improve nutrient delivery to tissue, To increase oxygenation perfusion, To improve muscle performance and motor function, To improve ability to perform ADL's, To increase tolerance to activity/condition/pos ition, To improve health of tissue and To increase flexibility/ROM Manual Therapy Techniques to Include: Mobilization For the Purpose of:: To decrease pain and To increase ROM Text: Thank you for the opportunity to evaluate your patient. For Medicare and Medicare HMO plans, please review the plan of care and approve it. It will need to be FAXED BACK to us at [phone] for Medicare purposes. For Medicare only, by signing this I certify the plan of care. Please let me know if there are questions or concerns regarding this plan of care. (more content not included)... Normal [facility] Ironon 04-11-2024 Iron [Mass/Vol] 73 ug/dL Normal 65-175 [facility] Comment on above: Order Comment: 1 Performed By: #### L 503.6075, L504.2610, L100.9950, L100.0100, L3410.2400, L503.6150, L503.6550 #### [facility] [address] [place], [place], [id number] ([phone]) Iron Binding Capacity,Totalo n 04-11-2024 TIBC 280 ug/dL Normal 250-450 [facility] Comment on above: Order Comment: 1 Performed By: #### L 503.6075, L504.2610, L100.9950, L100.0100, L3410.2400, L503.6150, L503.6550 #### [facility] [address] [place], [address] LDHon 04-11-2024 LDH 147 U/L Normal 87-241 [facility] Comment on above: Order Comment: 1 Performed By: #### L 503.6075, L504.2610, L100.9950, L100.0100, L3410.2400, L503.6150, L503.6550 #### [facility] [address] [place], [address] Retic Panelon 04-11-2024 IM RET FRACTION 20.70 High 3.00-15.90 [facility] Comment on above: Performed By: #### L 503.6075, L504.2610, L100.9950, L100.0100, L3410.2400, L503.6150, L503.6550 #### [facility] [address] [place], [address] RET-HE 35.0 pg Normal 30-35 [facility] Comment on above: Performed By: #### L 503.6075, L504.2610, L100.9950, L100.0100, L3410.2400, L503.6150, L503.6550 #### [facility] [address] [place], [address] Retic Count 1.95 High 0.5-1.5 [facility] Comment on above: Performed By: #### L 503.6075, L504.2610, L100.9950, L100.0100, L3410.2400, L503.6150, L503.6550 #### [facility] [address] [place], [address] Gastroenterology Visit Repor ton 03-17-2024 Gastroenterology Visit Report [facility] [address] [place] [address] OFFICE VISIT Date of Service: 03/17/24 MR#: [id number] Acct: [id number] Name: JUSTIN CARDONA Rep #: [id number] : 1960 Provider: Olayinka Manning DO Age/Sex: 64/M Location: [facility] [place] Status: Signed Intake Vital Signs 02/10/23 12:05 Height 5 ft 10 in Intake Visit Reasons: 6 M FU Allergies No Known Allergies Allergy (Verified 02/09/23 18:42) Medications ???Medication ???Instructions ???Recorded ???Confirmed ???Type amlodipine 5 mg tablet 5 mg PO QHS 02/09/23 03/17/24 History atorvastatin 20 mg tablet 20 mg PO DAILY 02/09/23 03/17/24 History lisinopril 20 2 tab PO DAILY 02/09/23 03/17/24 History mg-hydrochlorothiazide 12.5 mg tablet pantoprazole 40 mg tablet,delayed 40 mg PO DAILY #30 tabs 03/17/24 03/17/24 Rx release (Protonix) [facility] Medical History (Updated 04/01/23 @ 15:[address] Bhagat Friend, DO) Anemia requiring transfusions Hypercholesteremia Hypertension Social History Smoking Status: Never smoker HPI HPI Details: JUSTIN CARDONA, is a 64 M who presents to the office today for follow up. *[facility] hospitalization 02.09.23-02.13.23 for management of acute on chronic anemia requiring transfusion and chronic conditions of obesity, HTN, HLD. ? EGD and colonoscopy 02.11.23 multiple pedunculated/sessile gastric polyp, hyperplastic/inflammat ory. ? Colonoscopy diverticulosis; large hepatic flexure lipoma. No specimens. ? EGD 02.12.23 multiple gastric pedunculated/sessile polyps, hyperplastic/inflammat ory. ? Start sucralfate/PPI OV 04.01.23 reports that he feels well without fatigue, malaise, SOB and leg pain and is able to complete all tasks as needed. Since hospitalization he went of a ten day [place] cruise which he tolerated without problems. OV 4 pt reports he is doing well with no symptoms or concerns to report. Pt continues pantoprazole. OV 03.17.24 pt reports that he is feeling well, denies GI symptoms of concern at this time. Pt continues Pantoprazole. ROS Const Constitutional: No fatigue, fever(s) or weight change ENT ENT: No difficulty swallowing Gastro GI: No abdominal pain, belching, bloating, change in bowel habits, change in stool character, coffee ground emesis, constipation, cramping, diarrhea, heartburn, difficulty swallowing, feeling full early, excessive flatus, incontinent of stools, Vomiting blood/hematemesis, Blood in stool, loose stools, Black,tarry stools, nausea/dyspepsia, pain with swallowing, vomiting or other Musc Musculoskeletal: No joint pain Skin Skin: No yellowing of the eye or itchy eyes Psych Psychiatric: No anxiety and No depression Endo Endocrine: No fatigue or weight change Aller/Imm Allergy/Immunologic: No itchy eyes Gurpreet/Lymp Hematologic/Lymphatic: No easy bleeding or easy bruising Exam Const General: cooperative and comfortable Nutritional Appearance: average body habitus and well nourished HENMT Head: normal to inspection Ears: hearing grossly normal bilaterally Nose: external nose normal Face and sinus: normal facial exam Mouth: oral mucosae normal Throat: posterior oropharynx normal Eyes General: appearance normal, both eyes and all related structures Neck Neck: normal visual inspection Chest Chest palpation inspection: normal inspection of the chest and normal palpation of entire chest wall Resp Effort Inspection: normal respiratory effort Auscultation: Bilateral: Clear to Auscultation Cardio Palpation: normal PMI Rate: regular rate Rhythm: regular rhythm GI Inspection: normal to inspection Auscultation: normal bowel sounds Percussion: normal to percussion Palpation: no hepatosplenomegaly Skin General: no rashes or lesions noted Neuro General: patient alert Extrem General: normal to inspection Psych Affect: normal affect Assessment and Plan Assessment and Plan (1) GI bleed: Status: Acute Qualifiers: GI bleed type/associated pathology: unspecified gastrointestinal hemorrhage type Qualified Code(s): K92.2 - Gastrointestinal hemorrhage, unspecified Plan: 63-year-old gentleman recently admitted to the hospital for acute shortness of breath and discovered to have hemoglobin of 5.9. His baseline was 13. He got 3 units of packed red blood cells and was placed on a PPI drip. I was consulted to see him for GI bleed. He underwent an upper endoscopy was discovered to have multiple bleeding hemorrhagic polyps that were removed endoscopically and the bleeding source was stopped. He was on octreotide drip and PPI drip was (more content not included)... Normal [facility] AST(SGOT)on 12-27-2023 AST [Catalytic activity/Vol] 100 U/L High 15-37 [facility] Comment on above: Order Comment: URINE UTOOrder Date: 12/27/23Order Info: 666-05 - BMPOrder Info: - LIPIDOrder Info: 1919-12 ASTOrder Info: [id number] Info: 2856-05 - PSA Performed By: #### L 500.4100, L500.2500, L501.4100, L501.9910, L501.4405 ####[facility] [address] [place], [place], [phone] Alanine Aminotransferas (SGP T)on 12-27-2023 ALT [Catalytic activity/Vol] 59 U/L Normal 16-61 [facility] Comment on above: Order Comment: URINE UTOOrder Date: 12/27/23Order Info: 666-05 - BMPOrder Info: - LIPIDOrder Info: 1919-12 ASTOrder Info: [id number] Info: 2856-05 - PSA Performed By: #### L 500.4100, L500.2500, L501.4100, L501.9910, L501.4405 ####[facility] [address] [place], [address] Basic Metabolic Profile (BMP )on 12-27-2023 BUN/CRE 14.2 RATIO Normal 10-20 [facility] Comment on above: Order Comment: URINE UTOOrder Date: 12/27/23Order Info: 666-05 - BMPOrder Info: - LIPIDOrder Info: 1919-12 - ASTOrder Info: [id number] Info: [id number] - PSA Performed By: #### L 500.4100, L500.2500, L501.4100, L501.9910, L501.4405 ####[facility] [address] [place], [address] CA,Total 9.5 mg/dL Normal 8.5-10.1 [facility] Comment on above: Order Comment: URINE UTOOrder Date: 12/27/23Order Info: 666-05 - BMPOrder Info: [id number] - LIPIDOrder Info: 1919-12 - ASTOrder Info: 1741-10 - ALTOrder Info: 2856-05 - PSA Performed By: #### L 500.4100, L500.2500, L501.4100, L501.9910, L501.4405 ####[facility] [address] [place], [address] Chloride [Moles/Vol] 106 mmol/L Normal 98-107 [facility] Comment on above: Order Comment: URINE UTOOrder Date: 12/27/23Order Info: 666-05 - BMPOrder Info: - LIPIDOrder Info: 1919-12 - ASTOrder Info: [id number] Info: 2856-05 - PSA Performed By: #### L 500.4100, L500.2500, L501.4100, L501.9910, L501.4405 ####[facility] [address] [place], [address] CO2 [Moles/Vol] 23.0 mmol/L Normal 21.0-32.0 [facility] Comment on above: Order Comment: URINE UTOOrder Date: 12/27/23Order Info: 666-05 - BMPOrder Info: - LIPIDOrder Info: 1919-12 ASTOrder Info: [id number] Info: 2856-05 - PSA Performed By: #### L 500.4100, L500.2500, L501.4100, L501.9910, L501.4405 ####[facility] [address] [place], [address] Creatinine [Mass/Vol] 1.27 mg/dL Normal 0.70-1.30 [facility] Comment on above: Order Comment: URINE UTOOrder Date: 12/27/23Order Info: 666-05 - BMPOrder Info: [id number] - LIPIDOrder Info: 1919-12 - ASTOrder Info: 1741-10 - ALTOrder Info: 2856-05 - PSA Result Comment: The validity of the calculated GFR GFRAA in patients over 70 years has not been determined. Clinical correlation is essential. Performed By: #### L 500.4100, L500.2500, L501.4100, L501.9910, L501.4405 ####[facility] [address] [place], [address] EST GFR - AA 74 mL/min Normal >60 [facility] Comment on above: Order Comment: URINE UTOOrder Date: 12/27/23Order Info: 666-05 - BMPOrder Info: - LIPIDOrder Info: 1919-12 - ASTOrder Info: [id number] - ALTOrder Info: 2856-05 - PSA Result Comment: Afri can Bhutanese GFR Calc Performed By: #### L 500.4100, L500.2500, L501.4100, L501.9910, L501.4405 ####[facility] [address] [place], [address] GAP 10 Normal 5-15 [facility] Comment on above: Order Comment: URINE UTOOrder Date: 12/27/23Order Info: 666-05 - BMPOrder Info: - LIPIDOrder Info: 1919-12 - ASTOrder Info: [id number] - ALTOrder Info: 2856-05 - PSA Performed By: #### L 500.4100, L500.2500, L501.4100, L501.9910, L501.4405 ####[facility] [address] [place], [address] GFR/1.73 sq M.predicted among non-blacks MDRD (S/P/Bld) [Vol rate/Area] 61 mL/min/{1.73_m2} Normal >60 [facility] Comment on above: Order Comment: URINE UTOOrder Date: 12/27/23Order Info: 666-05 - BMPOrder Info: - LIPIDOrder Info: 1919-12 ASTOrder Info: [id number] Info: 2856-05 - PSA Result Comment: Non- GFR Calc Performed By: #### L 500.4100, L500.2500, L501.4100, L501.9910, L501.4405 ####[facility] [address] [place], [place], [id number] Glucose [Mass/Vol] 109 mg/dL High 74-106 [facility] Comment on above: Order Comment: URINE UTOOrder Date: 12/27/23Order Info: 666-05 - BMPOrder Info: - LIPIDOrder Info: 1919-12Order Info: 1741-10 Info: 2856-05 - PSA Result Comment: Fast ing Glucose result from 100 to 125 mg/dL suggests IMPAIRED HOMEOSTASIS per A.D.A. criteria. Performed By: #### L 500.4100, L500.2500, L501.4100, L501.9910, L501.4405 ####[facility] [address] [place], [address] Potassium [Moles/Vol] 3.9 mmol/L Normal 3.5-5.1 [facility] Comment on above: Order Comment: URINE UTOOrder Date: 12/27/23Order Info: 666-05 - BMPOrder Info: - LIPIDOrder Info: 1919-12 ASTOrder Info: 1741-10 Info: 2856-05 - PSA Performed By: #### L 500.4100, L500.2500, L501.4100, L501.9910, L501.4405 ####[facility] [address] [place], [address] Sodium [Moles/Vol] 139 mmol/L Normal 136-145 [facility] Comment on above: Order Comment: URINE UTOOrder Date: 12/27/23Order Info: 666-05 - BMPOrder Info: - LIPIDOrder Info: 1919-12 - ASTOrder Info: 1741-10 ALTOrder Info: 2856-05 - PSA Performed By: #### L 500.4100, L500.2500, L501.4100, L501.9910, L501.4405 ####[facility] [address] [place], [address] Urea nitrogen [Mass/Vol] 18 mg/dL Normal 7-18 [facility] Comment on above: Order Comment: URINE UTOOrder Date: 12/27/23Order Info: 666-05 - BMPOrder Info: - LIPIDOrder Info: 1919-12 - ASTOrder Info: 1741-10 ALTOrder Info: 2856-05 - PSA Performed By: #### L 500.4100, L500.2500, L501.4100, L501.9910, L501.4405 ####[facility] [address] [place], [address] Lipid Profileon 12-27-2023 Cholesterol [Mass/Vol] 159 mg/dL Normal 200 [facility] Comment on above: Order Comment: URINE UTOOrder Date: 12/27/23Order Info: 666-05 - BMPOrder Info: - LIPIDOrder Info: 1919-12 - ASTOrder Info: 1741-10 - ALTOrder Info: 2856-05 - PSA Result Comment: <200 mg/dL Desirable 200-240 mg/dL Borderline >240 mg/dL High Risk Performed By: #### L 500.4100, L500.2500, L501.4100, L501.9910, L501.4405 ####[facility] [address] [place], [address] Cholesterol in HDL [Mass/Vol] 48 mg/dL Normal [facility] Comment on above: Order Comment: URINE UTOOrder Date: 12/27/23Order Info: 666-05 - BMPOrder Info: - LIPIDOrder Info: 1919-12 ASTOrder Info: 1741-10 ALTOrder Info: 2856-05 - PSA Result Comment: The drugs N-Acetylcysteine and Metamizole may falsely depress this assay. Reference Range HDL <40 mg/dL Low HDL Cholesterol HDL >or= 60 mg/dL High HDL Cholesterol Performed By: #### L 500.4100, L500.2500, L501.4100, L501.9910, L501.4405 ####[facility] [address] [place], [address] Cholesterol in LDL [Mass/Vol] 74 mg/dL Normal 0-130 [facility] Comment on above: Order Comment: URINE UTOOrder Date: 12/27/23Order Info: 666-05 - BMPOrder Info: - LIPIDOrder Info: 1919-12 ASTOrder Info: 1741-10rd Info: 2856-05 - PSA Performed By: #### L 500.4100, L500.2500, L501.4100, L501.9910, L501.4405 ####[facility] [address] [place], [address] Cholesterol in VLDL [Mass/Vol] 37 mg/dL Normal 5-40 [facility] Comment on above: Order Comment: URINE UTOOrder Date: 12/27/23Order Info: 666-05 - BMPOrder Info: - LIPIDOrder Info: 1919-12 - ASTOrder Info: 1741-10rder Info: 2856-05 - PSA Performed By: #### L 500.4100, L500.2500, L501.4100, L501.9910, L501.4405 ####[facility] [address] [place], [address] Triglyceride [Mass/Vol] 187 mg/dL Normal [facility] Comment on above: Order Comment: URINE UTOOrder Date: 12/27/23Order Info: 666-05 - BMPOrder Info: [id number] - LIPIDOrder Info: 1919-12 - ASTOrder Info: 1741-10 - ALTOrder Info: 2856-05 - PSA Result Comment: The drugs N-Acetylcysteine and Metamizole may falsely depress this assay. Serum Triglycerides Reference Interval Normal <150 mg/dL Borderline high 150 - 199 mg/dL High 200 - 499 mg/dL Very High > or = 500 mg/dL Performed By: #### L 500.4100, L500.2500, L501.4100, L501.9910, L501.4405 ####[facility] [address] [place], [place], [phone] PSA,Total - Annual Screenon 12-27-2023 PSA,TOT SCREEN 0.39 ng/mL Normal 0.00-4.00 [facility] Comment on above: Order Comment: URINE UTOOrder Date: 12/27/23Order Info: 666-05 - BMPOrder Info: [id number] - LIPIDOrder Info: 1919-12 - ASTOrder Info: 1741-10 - ALTOrder Info: 2856-05 - PSA Result Comment: This test was performed using the TPSA assay method for the [employer] chemistry system. Values obtained with different assay methods cannot be used interchangably. When changing PSA assays in the course of monitoring a patient, additional sequential testing should be carried out to confirm baseline values. Performed By: #### L 500.4100, L500.2500, L501.4100, L501.9910, L501.4405 ####[facility] [address] [place], [place], [id number] Absolute lymphocyte countOrd ered By: Lida Crenshaw on 06-28-2023 Lymphocytes Auto (Unsp spec) [#/Vol] 1.25 10*3/uL 0.83-4.51 [facility] Automated lymphocyte count a s percentage of total leukocytesOrdered By: Lida Crenshaw on 06-28-2023 Lymphocytes/100 WBC Auto (Unsp spec) 13.1 % 19-41 [facility] Basophil percentageOrdered B y: Lida Crenshaw on 06-28-2023 Basophils/100 WBC (Bld) 0.5 % 0-1 [facility] Eosinophils/100 WBC (Bld) 3.2 % 0-5 [facility] Hemoglobin (Bld) [Mass/Vol] 14.0 g/dL 13.0-16.5 [facility] Monocytes/100 WBC (Bld) 6.8 % 0-10 [facility] Neutrophils (Bld) [#/Vol] 7.2 10*3/uL 2.0-7.7 [facility] Neutrophils/100 WBC (Bld) 76.1 % 47-70 [facility] WBC (Bld) [#/Vol] 9.5 10*3/uL 4.4-11.0 [facility] Determination of erythrocyte mean corpuscular volume (MCV)Ordered By: Lida Crenshaw on 06-28-2023 MCV (RBC) [Entitic vol] 93.9 fL 80-94 [facility] Erythrocyte distribution wid th ratioOrdered By: Lida Crenshaw on 06-28-2023 Erythrocyte distribution width (RBC) [Ratio] 14.2 % 11.6-14.6 [facility] Erythrocyte distribution wid th standard deviationOrdered By: Lida Crenshaw on 06-28-2023 Erythrocyte distribution width (RBC) [Entitic vol] 49.4 fL 35.1-43.9 [facility] Hematocrit Auto (Bld) [Volum e fraction]Ordered By: Lida Crenshaw on 06-28-2023 Hematocrit (Bld) [Volume fraction] 43.2 % 40-54 [facility] Hemoglobin in reticulocytes (mass per reticulocyte)Ordered By: Lida Crenshaw on 06-28-2023 Hemoglobin (Reticulocytes) [Entitic mass] 36.4 pg 30-35 [facility] Immature granulocytes/100 WB C Auto (Bld)Ordered By: Lida Crenshaw on 06-28-2023 Immature granulocytes/100 WBC (Bld) 0.300 % 0.0-0.9 [facility] Comment on above: IG% - Immature Granu locytes (promyelocytes, myelocytes and metamyelocytes) > 1% indicates that a LEFT SHIFT is Present. Iron measurement (mass/mass) Ordered By: Lida Crenshaw on 06-28-2023 Iron (Unsp spec) [Mass/Mass] 83 ug/dL 65-175 [facility] Laboratory - Chemistry and C hemistry - challengeOrdered By: Lida Crenshaw on 06-28-2023 Ferritin [Mass/Vol] 118 ng/mL 26-388 [facility] Laboratory - Hematology and Cell countsOrdered By: Lida Crenshaw on 06-28-2023 MCH (RBC) [Entitic mass] 30.4 pg 27.0-32.0 [facility] MCHC (RBC) [Mass/Vol] 32.4 g/dL 32-36 [facility] Nucleated RBC/100 WBC (Bld) [Ratio] 0 % 0-5 [facility] Platelets (Bld) [#/Vol] 306 10*3/uL 150-450 [facility] No Panel InformationOrdered By: Lida Crenshaw on 06-28-2023 Immature Reticulocyte Fraction 24.00 % 3.00-15.90 [facility] Platelet mean volume Eliezer-Ec ker (Bld) [Entitic vol]Ordered By: Lida Crenshaw on 06-28-2023 Platelet mean volume (Bld) [Entitic vol] 10.3 fL 6.2-12.0 [facility] RBC Auto (Bld) [#/Vol]Ordere d By: Lida Crenshaw on 06-28-2023 RBC (Bld) [#/Vol] 4.60 10*6/uL 4.6-6.2 [facility] Reticulocytes Auto (Bld) [#/ Vol]Ordered By: Lida Crenshaw on 06-28-2023 Reticulocytes/100 RBC (Bld) 1.39 % 0.5-1.5 [facility] Absolute lymphocyte countOrd ered By: Lida Crenshaw on 03-16-2023 Lymphocytes Auto (Unsp spec) [#/Vol] 1.24 10*3/uL 0.83-4.51 [facility] Basophil percentageOrdered B y: Lida Crenshaw on 03-16-2023 Basophils/100 WBC (Bld) 0.5 % 0-1 [facility] Eosinophils/100 WBC (Bld) 3.5 % 0-5 [facility] Neutrophils (Bld) [#/Vol] 5.8 10*3/uL 2.0-7.7 [facility] Neutrophils/100 WBC (Bld) 70.9 % 47-70 [facility] WBC (Bld) [#/Vol] 8.2 10*3/uL 4.4-11.0 [facility] Blood erythrocytes count (nu mber/volume)Ordered By: Lida Crenshaw on 03-16-2023 RBC (Bld) [#/Vol] 4.82 10*6/uL 4.6-6.2 [facility] Blood hemoglobin measurement (mass/volume)Ordered By: Lida Crenshaw on 03-16-2023 Hemoglobin (Bld) [Mass/Vol] 11.5 g/dL 13.0-16.5 [facility] Blood lymphocytes/100 leukoc ytesOrdered By: Lida Crenshaw on 03-16-2023 Lymphocytes/100 WBC (Bld) 15.2 % 19-41 [facility] Blood manual differential co mment interpretation (narrative result)Ordered By: Lida Crenshaw on 03-16-2023 Manual differential comment Ron (Bld) [Interp] COMMENT [facility] Comment on above: SLIDE SCANNED - DIMO RPHIC RBC POPULATION SEEN ON SLIDE REVIEW. Blood monocytes/100 leukocyt esOrdered By: Lida Crenshaw on 03-16-2023 Monocytes/100 WBC (Bld) 9.4 % 0-10 [facility] Blood platelet mean volumeOr dered By: Lida Crenshaw on 03-16-2023 Platelet mean volume (Bld) [Entitic vol] 9.4 fL 6.2-12.0 [facility] Determination of erythrocyte mean corpuscular volume (MCV)Ordered By: Lida Crenshaw on 03-16-2023 MCV (RBC) [Entitic vol] 79.3 fL 80-94 [facility] Hematocrit Auto (Bld) [Volum e fraction]Ordered By: Lida Crenshaw on 03-16-2023 Hematocrit (Bld) [Volume fraction] 38.2 % 40-54 [facility] Hemoglobin in reticulocytes (mass per reticulocyte)Ordered By: Lida Crenshaw on 03-16-2023 Hemoglobin (Reticulocytes) [Entitic mass] 33.4 pg 30-35 [facility] Iron measurement (mass/mass) Ordered By: Lida Crenshaw on 03-16-2023 Iron (Unsp spec) [Mass/Mass] 39 ug/dL 65-175 [facility] Laboratory - Hematology and Cell countsOrdered By: Lida Crenshaw on 03-16-2023 Immature granulocytes/100 WBC (Bld) 0.500 % 0.0-0.9 [facility] Comment on above: IG% - Immature Granu locytes (promyelocytes, myelocytes and metamyelocytes) > 1% indicates that a LEFT SHIFT is Present. MCH (RBC) [Entitic mass] 23.9 pg 27.0-32.0 [facility] Nucleated RBC/100 WBC (Bld) [Ratio] 0 % 0-5 [facility] MCHC Auto (RBC) [Mass/Vol]Or dered By: Lida Crenshaw on 03-16-2023 MCHC (RBC) [Mass/Vol] 30.1 g/dL 32-36 [facility] No Panel InformationOrdered By: Lida Crenshaw on 03-16-2023 Immature Reticulocyte Fraction 29.80 % 3.00-15.90 [facility] RDW Coefficient of Variation Not Reportable [facility] RDW Standard Deviation Not Reportable [facility] Reticulocyte Count 1.54 % 0.5-1.5 [facility] Platelets bldOrdered By: Lida Crenshaw on 03-16-2023 Platelets (Bld) [#/Vol] 418 10*3/uL 150-450 [facility] Serum or plasma ferritin christianne surement (mass/volume)Ordered By: Lida Crenshaw on 03-16-2023 Ferritin [Mass/Vol] 24 ng/mL 26-388 [facility] Absolute lymphocyte countOrd ered By: Aashish Arcos on 02-17-2023 Lymphocytes Auto (Unsp spec) [#/Vol] 1.53 10*3/uL 0.83-4.51 [facility] Basophil percentageOrdered B y: Aashish Arcos on 02-17-2023 Basophils/100 WBC (Bld) 0.9 % 0-1 [facility] Bilirubin [Mass/Vol] 0.30 mg/dL 0.20-1.00 [facility] Comment on above: For patients on eltr ombopag therapy, use of Dimension [place] TBIL is not recommended. Chloride [Moles/Vol] 103 mmol/L 98-107 [facility] Eosinophils/100 WBC (Bld) 2.7 % 0-5 [facility] Glucose [Mass/Vol] 85 mg/dL 74-106 [facility] Neutrophils (Bld) [#/Vol] 3.9 10*3/uL 2.0-7.7 [facility] Neutrophils/100 WBC (Bld) 58.7 % 47-70 [facility] Potassium [Moles/Vol] 3.4 mmol/L 3.5-5.1 [facility] Protein [Mass/Vol] 7.4 g/dL 6.4-8.2 [facility] Sodium [Moles/Vol] 134 mmol/L 136-145 [facility] WBC (Bld) [#/Vol] 6.7 10*3/uL 4.4-11.0 [facility] Blood erythrocytes count (nu mber/volume)Ordered By: Aashish Arcos on 02-17-2023 RBC (Bld) [#/Vol] 4.38 10*6/uL 4.6-6.2 [facility] Blood hemoglobin measurement (mass/volume)Ordered By: Aashish Arcos on 02-17-2023 Hemoglobin (Bld) [Mass/Vol] 9.2 g/dL 13.0-16.5 [facility] Blood lymphocytes/100 leukoc ytesOrdered By: Aashish Arcos on 02-17-2023 Lymphocytes/100 WBC (Bld) 22.9 % 19-41 [facility] Blood manual differential co mment interpretation (narrative result)Ordered By: Aashish Arcos on 02-17-2023 Manual differential comment Ron (Bld) [Interp] SCANNED [facility] Blood monocytes/100 leukocyt esOrdered By: Aashish Arcos on 02-17-2023 Monocytes/100 WBC (Bld) 14.4 % 0-10 [facility] Blood platelet mean volumeOr dered By: Aashish Arcos on 02-17-2023 Platelet mean volume (Bld) [Entitic vol] 9.8 fL 6.2-12.0 [facility] Determination of erythrocyte mean corpuscular volume (MCV)Ordered By: Aashish Arcos on 02-17-2023 MCV (RBC) [Entitic vol] 74.4 fL 80-94 [facility] Hematocrit Auto (Bld) [Volum e fraction]Ordered By: Aashish Arcos on 02-17-2023 Hematocrit (Bld) [Volume fraction] 32.6 % 40-54 [facility] Hypochromatic red blood cell detectionOrdered By: Aashish Arcos on 02-17-2023 Hypochromia Ql (Bld) 1+ [facility] Iron measurement (mass/mass) Ordered By: Aashish Arcos on 02-17-2023 Iron (Unsp spec) [Mass/Mass] 132 ug/dL 65-175 [facility] - Chemistry and C hemistry - challengeOrdered By: Aashish Arcos on 02-17-2023 ALP [Catalytic activity/Vol] 101 U/L 45-117 [facility] ALT [Catalytic activity/Vol] 27 U/L 16-61 [facility] CO2 [Moles/Vol] 23.0 mmol/L 21.0-32.0 [facility] Cobalamin (Vitamin B12) [Mass/Vol] 414 pg/mL 211-911 [facility] Globulin (S) [Mass/Vol] 4.2 g/dL 2.2-4.2 [facility] Urea nitrogen/Creatinine [Mass ratio] 6.1 mg/mg 10-20 [facility] - Hematology and Cell countsOrdered By: Aashish Arcos on 02-17-2023 Anisocytosis Ql (Bld) 2+ [facility] Erythrocyte distribution width (RBC) [Entitic vol] 63.0 fL 35.1-43.9 [facility] Erythrocyte distribution width (RBC) [Ratio] 24.7 % 11.6-14.6 [facility] Immature granulocytes/100 WBC (Bld) 0.400 % 0.0-0.9 [facility] Comment on above: IG% - Immature Granu locytes (promyelocytes, myelocytes and metamyelocytes) > 1% indicates that a LEFT SHIFT is Present. MCH (RBC) [Entitic mass] 21.0 pg 27.0-32.0 [facility] Nucleated RBC/100 W[facility] (Bld) [Ratio] 0 % [facility] [Mass/Vol]Or dered By: Aashish Arcos on 02-17-2023 MCHC (RBC) [Mass/Vol] 28.2 g/dL 32-36 [facility] No Panel InformationOrdered By: Aashish Arcos on 02-17-2023 Estimated GFR (MDRD) Amer 71 mL/min >60 [facility] Comment on above: GFR Calc Estimated GFR (MDRD) Non-Af Amer 59 mL/min >60 [facility] Comment on above: Non- GFR Calc Total Iron Binding Capacity 353 ug/dL 250-450 [facility] Platelets bldOrdered By: Ru Arcos on 02-17-2023 Platelets (Bld) [#/Vol] 478 10*3/uL 150-450 [facility] Serum or plasma albumin laith urement (mass/volume)Ordered By: Aashish Arcos on 02-17-2023 Albumin [Mass/Vol] 3.2 g/dL 3.2-5.0 [facility] Serum or plasma albumin/glob ulin mass ratioOrdered By: Aashish Arcos on 02-17-2023 Albumin/Globulin [Mass ratio] 0.8 {ratio} 0.9-2.4 [facility] Serum or plasma calcium laith urement (mass/volume)Ordered By: Aashish Arcos on 02-17-2023 Calcium [Mass/Vol] 8.8 mg/dL 8.5-10.1 [facility] Serum or plasma creatinine m easurement (mass/volume)Ordered By: Aashish Arcos on 02-17-2023 Creatinine [Mass/Vol] 1.32 mg/dL 0.70-1.30 [facility] Comment on above: The validity of the calculated GFR & GFRAA in patients over 70 years has not been determined. Clinical correlation is essential. Serum or plasma ferritin christianne surement (mass/volume)Ordered By: Aashish Arcos on 02-17-2023 Ferritin [Mass/Vol] 14 ng/mL 26-388 [facility] Serum or plasma folate measu rement (mass/volume)Ordered By: Aashsih Arcos on 02-17-2023 Folate [Mass/Vol] 5.20 ng/mL 3.1-55.4 [facility] Serum or plasma urea nitroge n measurement (mass/volume)Ordered By: Aashish Arcos on 02-17-2023 Urea nitrogen [Mass/Vol] 8 mg/dL 7-18 [facility] Thin prep Papanicolaou smear with manual screeningOrdered By: Aashish Arcos on 02-17-2023 Thin prep Papanicolaou smear with manual screening 1+ [facility] Thin prep Papanicolaou smear with manual screening 23 U/L 15-37 [facility] Thin prep Papanicolaou smear with manual screening 8 5-15 [facility] Absolute lymphocyte countOrd ered By: Merrick Cruz on 02-13-2023 Lymphocytes Auto (Unsp spec) [#/Vol] 1.41 10*3/uL 0.83-4.51 [facility] Basophil percentageOrdered B y: Merrick Cruz on 02-13-2023 Basophils/100 WBC (Bld) 0.3 % 0-1 [facility] Chloride [Moles/Vol] 108 mmol/L 98-107 [facility] Eosinophils/100 WBC (Bld) 4.2 % 0-5 [facility] Glucose [Mass/Vol] 92 mg/dL 74-106 [facility] Neutrophils (Bld) [#/Vol] 6.0 10*3/uL 2.0-7.7 [facility] Neutrophils/100 WBC (Bld) 69.8 % 47-70 [facility] Potassium [Moles/Vol] 3.7 mmol/L 3.5-5.1 [facility] Sodium [Moles/Vol] 138 mmol/L 136-145 [facility] WBC (Bld) [#/Vol] 8.6 10*3/uL 4.4-11.0 [facility] Blood erythrocytes count (nu mber/volume)Ordered By: Merrick Cruz on 02-13-2023 RBC (Bld) [#/Vol] 3.52 10*6/uL 4.6-6.2 [facility] Blood hemoglobin measurement (mass/volume)Ordered By: Merrick Cruz on 02-13-2023 Hemoglobin (Bld) [Mass/Vol] 7.5 g/dL 13.0-16.5 [facility] Blood lymphocytes/100 leukoc ytesOrdered By: Merrick Cruz on 02-13-2023 Lymphocytes/100 WBC (Bld) 16.4 % 19-41 [facility] Blood manual differential co mment interpretation (narrative result)Ordered By: Merrick Cruz on 02-13-2023 Manual differential comment Ron (Bld) [Interp] SCANNED [facility] Blood monocytes/100 leukocyt esOrdered By: Merrick Cruz on 02-13-2023 Monocytes/100 WBC (Bld) 8.8 % 0-10 [facility] Blood platelet mean volumeOr dered By: Merrick Cruz on 02-13-2023 Platelet mean volume (Bld) [Entitic vol] 9.3 fL 6.2-12.0 [facility] Blood polychromasia detectio n by light microscopyOrdered By: Merrick Cruz on 02-13-2023 Polychromasia LM Ql (Bld) RARE [facility] Determination of erythrocyte mean corpuscular volume (MCV)Ordered By: Merrick Cruz on 02-13-2023 MCV (RBC) [Entitic vol] 73.9 fL 80-94 [facility] Hematocrit Auto (Bld) [Volum e fraction]Ordered By: Merrick Cruz on 02-13-2023 Hematocrit (Bld) [Volume fraction] 26.0 % 40-54 [facility] Laboratory - Chemistry and C hemistry - challengeOrdered By: Merrick Cruz on 02-13-2023 CO2 [Moles/Vol] 26.0 mmol/L 21.0-32.0 [facility] Urea nitrogen/Creatinine [Mass ratio] 9.6 mg/mg 10-20 [facility] - Hematology and Cell countsOrdered By: Merrick Cruz on 02-13-2023 Anisocytosis Ql (Bld) 2+ [facility] Erythrocyte distribution width (RBC) [Entitic vol] 62.5 fL 35.1-43.9 [facility] Erythrocyte distribution width (RBC) [Ratio] 24.2 % 11.6-14.6 [facility] Immature granulocytes/100 WBC (Bld) 0.500 % 0.0-0.9 [facility] Comment on above: IG% - Immature Granu locytes (promyelocytes, myelocytes and metamyelocytes) > 1% indicates that a LEFT SHIFT is Present. MCH (RBC) [Entitic mass] 21.3 pg 27.0-32.0 [facility] Nucleated RBC/100 WBC (Bld) [Ratio] 0 % 0-5 [facility] MCHC Auto (RBC) [Mass/Vol]Or dered By: Merrick Cruz on 02-13-2023 MCHC (RBC) [Mass/Vol] 28.8 g/dL 32-36 [facility] Macrocytes detectionOrdered By: Merrick Cruz on 02-13-2023 Macrocytes Ql (Bld) 1+ [facility] No Panel InformationOrdered By: Merrick Cruz on 02-13-2023 Estimated Creatinine Clearance Calc 77.99 ml/min [facility] Estimated GFR (MDRD) Amer 93 mL/min >60 [facility] Comment on above: GFR Calc Estimated GFR (MDRD) Non-Af Amer 77 mL/min >60 [facility] Comment on above: Non- GFR Calc Ovalocyte detectionOrdered B y: Merrick Cruz on 02-13-2023 Ovalocytes LM Ql (Bld) RARE [facility] Platelets bldOrdered By: Sven Cruz on 02-13-2023 Platelets (Bld) [#/Vol] 408 10*3/uL 150-450 [facility] Serum or plasma calcium laith urement (mass/volume)Ordered By: Merirck Cruz on 02-13-2023 Calcium [Mass/Vol] 8.4 mg/dL 8.5-10.1 [facility] Serum or plasma creatinine m easurement (mass/volume)Ordered By: Merrick Cruz on 02-13-2023 Creatinine [Mass/Vol] 1.04 mg/dL 0.70-1.30 [facility] Comment on above: The validity of the calculated GFR & GFRAA in patients over 70 years has not been determined. Clinical correlation is essential. Serum or plasma urea nitroge n measurement (mass/volume)Ordered By: Merrick Cruz on 02-13-2023 Urea nitrogen [Mass/Vol] 10 mg/dL 7-18 [facility] Thin prep Papanicolaou smear with manual screeningOrdered By: Merrick Cruz on 02-13-2023 Thin prep Papanicolaou smear with manual screening 1+ [facility] Thin prep Papanicolaou smear with manual screening 4 5-15 [facility] Hypochromatic red blood cell detectionOrdered By: Domo Lee on 02-11-2023 Hypochromia Ql (Bld) 1+ [facility] Absolute lymphocyte countOrd ered By: Michael Herrera on 02-09-2023 Lymphocytes Auto (Unsp spec) [#/Vol] 1.53 10*3/uL 0.83-4.51 [facility] Basophil percentageOrdered B y: Shawn Arndt on 02-09-2023 Basophil percentage 0 SEEN /hpf 0-5 [facility] Basophil percentageOrdered B y: Michael Herrera on 02-09-2023 Basophils/100 WBC (Bld) 0.3 % 0-1 [facility] Chloride [Moles/Vol] 105 mmol/L 98-107 [facility] Eosinophils/100 WBC (Bld) 1.9 % 0-5 [facility] Glucose [Mass/Vol] 119 mg/dL 74-106 [facility] Comment on above: Fasting Glucose resu lt from 100 to 125 mg/dL suggests IMPAIRED HOMEOSTASIS per A.D.A. criteria. Neutrophils (Bld) [#/Vol] 6.8 10*3/uL 2.0-7.7 [facility] Neutrophils/100 WBC (Bld) 74.3 % 47-70 [facility] Potassium [Moles/Vol] 3.8 mmol/L 3.5-5.1 [facility] Sodium [Moles/Vol] 138 mmol/L 136-145 [facility] WBC (Bld) [#/Vol] 9.2 10*3/uL 4.4-11.0 [facility] Bilirubin Test strip Ql (U)O rdered By: Shawn Arndt on 02-09-2023 Bilirubin Ql (U) Negative Negative [facility] Blood erythrocytes count (nu mber/volume)Ordered By: Michael Herrera on 02-09-2023 RBC (Bld) [#/Vol] 3.29 10*6/uL 4.6-6.2 [facility] Blood hemoglobin measurement (mass/volume)Ordered By: Michael Herrera on 02-09-2023 Hemoglobin (Bld) [Mass/Vol] 5.9 g/dL 13.0-16.5 [facility] Comment on above: CRITICAL VALUE VERIF IED. CALLED TO LEILANI CARNES RN [id number] Harjinder Goetz.RESULTS READ BACK BY SAME . Blood lymphocytes/100 leukoc ytesOrdered By: Michael Herrera on 02-09-2023 Lymphocytes/100 WBC (Bld) 16.7 % 19-41 [facility] Blood monocytes/100 leukocyt esOrdered By: Michael Herrera on 02-09-2023 Monocytes/100 WBC (Bld) 6.3 % 0-10 [facility] Blood platelet adequacy dete ction by light microscopyOrdered By: Michael Herrera on 02-09-2023 Platelets LM Ql (Bld) MOD INC ADEQ [facility] Blood platelet mean volumeOr dered By: Michael Herrera on 02-09-2023 Platelet mean volume (Bld) [Entitic vol] 8.9 fL 6.2-12.0 [facility] COVID-19 virus antigen assay Ordered By: Michael Herrera on 02-09-2023 SARS-CoV-2 (COVID-19) Ag IA.rapid Ql (Resp) [facility] Determination of erythrocyte mean corpuscular volume (MCV)Ordered By: Michael Herrera on 02-09-2023 MCV (RBC) [Entitic vol] 66.9 fL 80-94 [facility] Hematocrit Auto (Bld) [Volum e fraction]Ordered By: Michael Herrera on 02-09-2023 Hematocrit (Bld) [Volume fraction] 22.0 % 40-54 [facility] Hypochromatic red blood cell detectionOrdered By: Michael Herrera on 02-09-2023 Hypochromia Ql (Bld) 1+ [facility] Iron measurement (mass/mass) Ordered By: Shawn Arndt on 02-09-2023 Iron (Unsp spec) [Mass/Mass] 14 ug/dL 65-175 [facility] Ketones Test strip Ql (U)Ord ered By: Shawn Arndt on 02-09-2023 Ketones Ql (U) Negative Negative [facility] Laboratory - Chemistry and C hemistry - challengeOrdered By: Michael Herrera on 02-09-2023 CO2 [Moles/Vol] 29.0 mmol/L 21.0-32.0 [facility] Urea nitrogen/Creatinine [Mass ratio] 13.1 mg/mg 10-20 [facility] - Chemistry and C hemistry - challengeOrdered By: Shawn Arndt on 02-09-2023 Cobalamin (Vitamin B12) [Mass/Vol] 404 pg/mL 211-911 [facility] - Hematology and Cell countsOrdered By: Michael Herrera on 02-09-2023 Anisocytosis Ql (Bld) 1+ [facility] Erythrocyte distribution width (RBC) [Entitic vol] 45.1 fL 35.1-43.9 [facility] Erythrocyte distribution width (RBC) [Ratio] 18.6 % 11.6-14.6 [facility] Immature granulocytes/100 WBC (Bld) 0.500 % 0.0-0.9 [facility] Comment on above: IG% - Immature Granu locytes (promyelocytes, myelocytes and metamyelocytes) > 1% indicates that a LEFT SHIFT is Present. MCH (RBC) [Entitic mass] 17.9 pg 27.0-32.0 [facility] Nucleated RBC/100 WBC (Bld) [Ratio] 0.3 % 0-5 [facility] MCHC Auto (RBC) [Mass/Vol]Or dered By: Michael Herrera on 02-09-2023 MCHC (RBC) [Mass/Vol] 26.8 g/dL 32-36 [facility] Mucus LM Ql (Urine sed)Order ed By: Shawn Arndt on 02-09-2023 Mucus Ql (Urine sed) 0 SEEN /hpf [facility] Nitrite Test strip Ql (U)Ord ered By: Shawn Arndt on 02-09-2023 Nitrite Ql (U) Negative Negative [facility] No Panel InformationOrdered By: Shawn Arndt on 02-09-2023 Haptoglobin 236 mg/dL 29-370 [facility] Comment on above: Performed at: [facility] [address] [id number] [place], [place] [id number] Director: Dallas Durbin PhD, Phone: [phone] Total Iron Binding Capacity 346 ug/dL 250-450 [facility] No Panel InformationOrdered By: Michael Herrera on 02-09-2023 Estimated Creatinine Clearance Calc 66.48 ml/min [facility] Estimated GFR (MDRD) Amer 78 mL/min >60 [facility] Comment on above: GFR Calc Estimated GFR (MDRD) Non-Af Amer 64 mL/min >60 [facility] Comment on above: Non- GFR Calc Troponin I High Sensitivity 6 pg/mL 3.0-78.0 [facility] Comment on above: Please Note: New [place] t Units and Gender Specific Reference Ranges. For more information see Policy Stat Procedure [place] High Sensitivity Troponin (TNIH) and attachments. Ovalocyte detectionOrdered B y: Michael Herrera on 02-09-2023 Ovalocytes LM Ql (Bld) RARE [facility] Platelets bldOrdered By: Sabrina Herrera on 02-09-2023 Platelets (Bld) [#/Vol] 541 10*3/uL 150-450 [facility] Protein Test strip Ql (U)Ord ered By: Shawn Arndt on 02-09-2023 Protein Ql (U) Negative Negative [facility] RBC morphologyOrdered By: Jayden Herrera on 02-09-2023 RBC morphology finding Nom (Bld) N CHROM NORMAL NORM C&C [facility] Review by pathologistOrdered By: Michael Herrera on 02-09-2023 Pathologist review Ron (Unsp spec) [Interp] Elma hutson [facility] Pathologist review Ron (Unsp spec) [Interp] Reviewed [facility] Comment on above: Previous reported re sult: Elma hutson Edited by: RGOOD on 02/11/23:0954Severe Microcytic anemia.Thrombocytosis.Clinical correlation necessary.Abdifatah Keller M.D. 02/11/23 AMENDED REPORT 02/11/23 0954 PATH REV previously reported as: Elma hutson Serum or plasma calcium laith urement (mass/volume)Ordered By: Michael Herrera on 02-09-2023 Calcium [Mass/Vol] 8.5 mg/dL 8.5-10.1 [facility] Serum or plasma creatinine m easurement (mass/volume)Ordered By: Michael Herrera on 02-09-2023 Creatinine [Mass/Vol] 1.22 mg/dL 0.70-1.30 [facility] Comment on above: The validity of the calculated GFR & GFRAA in patients over 70 years has not been determined. Clinical correlation is essential. Serum or plasma ferritin christianne surement (mass/volume)Ordered By: Michael Herrera on 02-09-2023 Ferritin [Mass/Vol] 5 ng/mL 26-388 [facility] Serum or plasma folate measu rement (mass/volume)Ordered By: Shawn Arndt on 02-09-2023 Folate [Mass/Vol] 6.50 ng/mL 3.1-55.4 [facility] Serum or plasma iron saturat ion measurement (mass fraction)Ordered By: Shawn Arndt on 02-09-2023 Iron saturation [Mass fraction] 4.0 % 15.0-55.0 [facility] Serum or plasma urea nitroge n measurement (mass/volume)Ordered By: Michael Herrera on 02-09-2023 Urea nitrogen [Mass/Vol] 16 mg/dL 7-18 [facility] Squamous epithelial cells de tection in urine sediment by light microscopyOrdered By: Shawn Arndt on 02-09-2023 Epithelial cells.squamous LM Ql (Urine sed) 0 SEEN /hpf 0-5 [facility] Stool gastrointestinal hemog lobin detection by immunologic methodOrdered By: Michael Herrera on 02-09-2023 Lower GI hemoglobin IA Ql (Stl) [facility] Thin prep Papanicolaou smear with manual screeningOrdered By: Michael Herrera on 02-09-2023 Thin prep Papanicolaou smear with manual screening 1+ [facility] Thin prep Papanicolaou smear with manual screening 4 5-15 [facility] Urine blood detectionOrdered By: Shawn Arndt on 02-09-2023 RBC Ql (U) Negative Negative [facility] RBC Ql (U) 0 SEEN /hpf 0-5 [facility] Urine clarityOrdered By: Sabrina Arndt on 02-09-2023 Clarity (U) Clear Clear [facility] Urine color determinationOrd ered By: Shawn Arndt on 02-09-2023 Color (U) Yellow Yellow [facility] Urine glucose detectionOrder ed By: Shawn Arndt on 02-09-2023 Glucose Ql (U) Normal mg/dl Normal [facility] Urine leukocyte esterase det ection by dipstickOrdered By: Shawn Arndt on 02-09-2023 Leukocyte esterase Test strip Ql (U) Negative Negative [facility] Urine pHOrdered By: Jarrett Arndt on 02-09-2023 pH (U) 7.0 [pH] 5.0 - 8.0 [facility] Urine sediment bacteria coun t by microscopy (number/high power field)Ordered By: Shawn Arndt on 02-09-2023 Bacteria LM.HPF (Urine sed) [#/Area] 0 /[HPF] None Seen [facility] Urine specific gravity measu rementOrdered By: Shawn Arndt on 02-09-2023 Specific gravity (U) [Rel density] 1.010 1.002-1.030 [facility] Urobilinogen Auto test strip Ql (U)Ordered By: Shawn Arndt on 02-09-2023 Urobilinogen Ql (U) Normal mg/dl Normal [facility] Basophil percentageOrdered B y: Lida Crenshaw on 12-22-2022 Chloride [Moles/Vol] 108 mmol/L 98-107 [facility] Cholesterol [Mass/Vol] 134 mg/dL <200 [facility] Comment on above: <200 mg/dL Desirable 200-240 mg/dL Borderline >240 mg/dL High Risk Glucose [Mass/Vol] 99 mg/dL 74-106 [facility] Potassium [Moles/Vol] 4.0 mmol/L 3.5-5.1 [facility] Sodium [Moles/Vol] 137 mmol/L 136-145 [facility] Triglyceride [Mass/Vol] 100 mg/dL <199 [facility] Comment on above: The drugs N-Acetylcy steine and Metamizole may falsely depress this assay.Serum Triglycerides Reference Interval Normal <150 mg/dL Borderline high 150 - 199 mg/dL High 200 - 499 mg/dL Very High > or = 500 mg/dL Laboratory - Chemistry and C hemistry - challengeOrdered By: Lida Crenshaw on 12-22-2022 ALT [Catalytic activity/Vol] 19 U/L 16-61 [facility] CO2 [Moles/Vol] 24.0 mmol/L 21.0-32.0 [facility] Urea nitrogen/Creatinine [Mass ratio] 11.7 mg/mg 10-20 [facility] No Panel InformationOrdered By: Lida Crenshaw on 12-22-2022 Estimated GFR (MDRD) Amer 68 mL/min >60 [facility] Comment on above: GFR Calc Estimated GFR (MDRD) Non-Af Amer 56 mL/min >60 [facility] Comment on above: Non- GFR Calc Prostate Specific Antigen Screen 0.38 ng/mL 0.00-4.00 [facility] Comment on above: This test was perfor med using the TPSA assay method for [employer] chemistry system. Values obtained with differentassay methods cannot be used interchangably.When changing PSA assays in the course of monitoring apatient, additional sequential testing should be carriedout to confirm baseline values. Serum or plasma calcium laith urement (mass/volume)Ordered By: Lida Crenshaw on 12-22-2022 Calcium [Mass/Vol] 8.7 mg/dL 8.5-10.1 [facility] Serum or plasma cholesterol in HDL measurement (mass/volume)Ordered By: Lida Crenshaw on 12-22-2022 Cholesterol in HDL [Mass/Vol] 44 mg/dL >40 [facility] Comment on above: The drugs N-Acetylcy steine and Metamizole may falsely depress this assay. Reference Range HDL <40 mg/dL Low HDL Cholesterol HDL >or= 60 mg/dL High HDL Cholesterol Serum or plasma cholesterol in VLDL measurement (mass/volume)Ordered By: Lida Crenshaw on 12-22-2022 Cholesterol in VLDL [Mass/Vol] 20 mg/dL 5-40 [facility] Serum or plasma creatinine m easurement (mass/volume)Ordered By: Lida Crenshaw on 12-22-2022 Creatinine [Mass/Vol] 1.37 mg/dL 0.70-1.30 [facility] Comment on above: The validity of the calculated GFR & GFRAA in patients over 70 years has not been determined. Clinical correlation is essential. Serum or plasma low density lipoprotein (LDL) cholesterol measurement (mass/volume)Ordered By: Lida Crenshaw on 12-22-2022 Cholesterol in LDL [Mass/Vol] 70 mg/dL 0-130 [facility] Serum or plasma urea nitroge n measurement (mass/volume)Ordered By: Lida Crenshaw on 12-22-2022 Urea nitrogen [Mass/Vol] 16 mg/dL 7-18 [facility] Thin prep Papanicolaou smear with manual screeningOrdered By: Lida Crenshaw on 12-22-2022 Thin prep Papanicolaou smear with manual screening 23 U/L 15-37 [facility] Thin prep Papanicolaou smear with manual screening 5 5-15 [facility] Vital Signs Date Time Vital Sign Value Performing Clinician Savannahi lity 02-13-2023 11:00-0400 Body temperature 98.2 [degF] Dr. Lida Crenshaw Work Phone: [facility] 02-13-2023 11:00-0400 Diastolic blood pressure 78 mm[Hg] Dr. Lida Crenshaw Work Phone: [facility] 02-13-2023 11:00-0400 Heart rate 78 /min Dr. Lida Crenshaw Work Phone: [facility] 02-13-2023 11:00-0400 Respiratory rate 18 /min Dr. Lida Crenshaw Work Phone: [facility] 02-13-2023 11:00-0400 SaO2% (BldA) [Mass fraction] 97 % Dr. Lida Crenshaw Work Phone: [facility] 02-13-2023 11:00-0400 Systolic blood pressure 148 mm[Hg] Dr. Lida Crenshaw Work Phone: [facility] 02-10-2023 12:05-0400 Body height 177.[address] Lida Crenshaw Work Phone: [facility] 02-10-2023 12:05-0400 Body weight 134.[address] Lida Crenshaw Work Phone: [facility] 02-09-2023 22:58-0400 Body mass index (BMI) [Ratio] 42.6 kg/m2 Dr. Lida Crenshaw Work Phone: [facility] 02-09-2023 22:33-0400 Diastolic blood pressure 63 mm[Hg] [facility] 02-09-2023 22:33-0400 SaO2% (BldA) [Mass fraction] 96 % [facility] 02-09-2023 22:33-0400 Systolic blood pressure 137 mm[Hg] [facility] 02-09-2023 21:42-0400 Body temperature 97.4 [degF] [facility] 02-09-2023 21:42-0400 Heart rate 94 /min [facility] 02-09-2023 21:42-0400 Respiratory rate 25 /min [facility] 02-09-2023 18:44-0400 Body height 177.8 cm [facility] 02-09-2023 18:44-0400 Body mass index (BMI) [Ratio] 42.1 kg/m2 [facility] 02-09-2023 18:44-0400 Body weight 133.17 kg [facility] Encounters Encounter Date Encounter Type Care Provider Facility Start: 10-02-2024 Encounter for other preprocedural examination Brandon Miller [facility] Start: 09-22-2024 End: 09-22-2024 Non-patient / Non-visit Dr. Faisal Miller MD -[facility] Work Phone: Start: 09-22-2024 End: 09-22-[address] Lida Crenshaw MD Work Phone: [facility] Work Phone: Start: 09-22-2024 End: 09-22-[address] Brandon Miller DO -Pulmonary Services/Neurology Work Phone: Start: 09-22-2024 End: 09-22-2024 ambulatory Lida Crenshaw Facility:[facility] Start: 04-25-2024 End: 04-25-2024 ambulatory Lida Crenshaw Facility:[facility] Start: 04-13-2024 ambulatory Olayinkadottie Manning Facility :[facility] Start: 04-11-2024 End: 04-11-2024 ambulatory Lida Crenshaw Facility:[facility] Start: 03-17-2024 End: 03-17-2024 ambulatory Lida Crenshaw Facility:[facility] Start: 12-27-2023 End: 12-27-2023 ambulatory Lida Crenshaw Facility:[facility] Start: 09-16-2023 End: 09-16-[address] Lida Crenshaw Work Phone: [facility] Work Phone: Start: 06-28-2023 End: 06-28-[address] Lida Crenshaw Work Phone: [facility] Work Phone: Start: 06-28-2023 End: 06-28-[address] Lida Crenshaw Work Phone: [facility] Start: 04-01-2023 End: 04-01-[address] Lida Crenshaw Work Phone: [facility] Work Phone: Start: 03-16-2023 End: 03-16-[address] Lida Crenshaw Work Phone: [facility] Work Phone: Start: 03-16-2023 End: 03-16-[address] Lida Crenshaw Work Phone: [facility] Start: 02-17-2023 End: 02-17-[address] Lida Crenshaw Work Phone: [facility] Work Phone: Start: 02-17-2023 End: 02-17-[address] Lida Crenshaw Work Phone: [facility] Start: 02-13-2023 Non-patient / Non-visit Dr. Angi Crenshaw Work Phone: [facility] Work Phone: Start: 02-12-2023 Non-patient / Non-visit Dr. Angi Crenshaw Work Phone: [facility] Start: 02-12-2023 Non-patient / Non-visit Dr. Angi Crenshaw Work Phone: [facility] Work Phone: Start: 02-11-2023 Non-patient / Non-visit Dr. Angi Crenshaw Work Phone: [facility] Start: 02-11-2023 Non-patient / Non-visit Dr. Angi Crenshaw Work Phone: [facility] Work Phone: Start: 02-10-2023 Non-patient / Non-visit Dr. Angi Crenshaw Work Phone: [facility] Start: 02-10-2023 Non-patient / Non-visit Dr. Agni Crenshaw Work Phone: [facility] Work Phone: Start: 02-09-2023 End: 02-13-2023 Evaluation and management of inpatient [facility] Work Phone: Start: 12-22-2022 End: 12-22-2022 ambulatory [facility] Work Phone: Start: 12-22-2022 End: 12-22-2022 Patient encounter procedure [facility] Procedures Date Procedure Procedure Detail Performing Clinician Start: 02-12-[address] Lida ellington Work Phone: Start: 02-11-[address] Lida Crenshaw Work Phone: Start: 02-09-2023 CT of chest, abdomen and pelvis without contrast Start: 02-09-2023 Plain chest X-ray Start: 02-09-2023 Measurement of occult blood in stool specimen using immunoassay Start: 02-09-2023 Viral antigen assay Plan of Treatment Date Care Activity Detail Author Start: 02-13-2023 Patient discharge [facility] Start: 02-11-2023 Catheterization of vein [facility] Start: 02-10-2023 [facility] Start: 02-10-2023 Care planning and pr oblem solving actions [facility] Start: 02-10-2023 Catheterization of vein [facility] Start: 02-10-2023 Application of inter mittent pneumatic compression device [facility] Start: 02-09-2023 Ambulation without limitation [facility] Start: 02-09-2023 Assessment of risk o f venous thromboembolism [facility] Start: 02-09-2023 Documentation procedure [facility] Start: 02-09-2023 Insertion of cathete r into peripheral vein [facility] Start: 02-09-2023 Providing care accor ding to standard [facility] Start: 02-09-2023 Referral to gastroen terology service [facility] Start: 02-09-2023 Referral to occupational therapist [facility] Start: 02-09-2023 Referral to service [facility] Start: 02-09-2023 [facility] Start: 02-09-2023 Following clinical p athway protocol [facility] Start: 02-09-2023 Verification routine [facility] Start: 02-09-2023 Admission procedure [facility] Start: 02-09-2023 Leukocyte reduced red blood cells [facility] Start: 02-09-2023 End: 02-09-2023 [facility] Start: 02-09-2023 End: 02-09-2023 Administration of blood product [facility] Start: 02-09-2023 Patient referral to dietitian [facility] Bilirubin measurement, urine [facility] Folate [Mass/volume] in Serum or Plasma [facility] Haptoglobin [Mass/vo lume] in Serum or Plasma [facility] Hemoglobin [Presence] in Urine [facility] Measurement of keton es in urine using dipstick [facility] Microscopic urinalysis [facility] Organism count, microscopic method [facility] Patient referral [facility] Work Phone: pH of Urine [facility] Specific gravity of Urine [facility] Urinalysis, blood, qualitative [facility] Urine dipstick for glucose [facility] Urine dipstick for l eukocyte esterase [facility] Urine dipstick for nitrite [facility] Urine dipstick for protein [facility] Urine examination [facility] Urine microscopy: epithelial cells [facility] Urobilinogen [Presence] in Urine [facility] White blood cell count [facility] Immunizations Immunization Date Immunization Notes Care Provider Fa cility 08-29-2020 Covid (Pfizer) [facility] 08-08-2020 Covid (Pfizer) [facility] Payers Date Payer Category Payer Self-pay [id number] 2023 Self-pay [id number] 2020 Unknown [id number] Unknown [id number] 2.16.8 [id number] Unknown [id number] 2.16.8 [id number] Unknown [id number] 2.16.8 [id number] Unknown [id number] 2.16.8 [id number] Unknown [id number] 2.16.8 [id number] Unknown [id number] 2.16.8 [id number] Unknown [id number] .16.8 [id number] Social History Date Type Detail Facility Start: 12-01-2013 End: 04-01-2023 Tobacco smoking status SCIS Unknown if ever smoked [facility] Start: 1960 Sex Assigned At Male [facility] Start: 04-01-2023 Tobacco smoking stat us NHIS Never smoked tobacco (finding) [facility] Goals Date Patient Goal Desired Activity /State Functional Status Date Assessment Result Facility 02-13-2023 Functional status Ambulates;Up ad melissa [facility] Work Phone: Mental Status Date Assessment Result Facility 02-13-2023 Cognitive function Voice/Name [facility] Work Phone: 02-09-2023 Cognitive function Level Of Cons ciousness Awake;Alert;Appropriate;Follow s Commands [facility] Work Phone: Clinical Notes 02-09-2023 to 02-13-2023 Note Date & Type Note Facility 02-13-2023 Discharge summary Note Date/Time February 13, 2023 11:00am [facility] Medical Records Department [address] [place] [address] Discharge Summary 02/13/23 1057 MR#: [id number] Acct: [id number] Name: JUSTIN CARDONA Rep #:[id number] : 1960 62 From: Merrick Puente PCP: Dr. Lida Crenshaw MD Status:ADM IN Location: [facility] [id number]- 1 Providers Date of Admission: 02/09/23 Primary Care Physician: Dr. Lida Crenshaw MD Consultations 02/09/23 23:38 Consult: Gastroenterology Routine Consulting Provider: [facility] Reason for Consult: Severe acute anemia, rule out GI bleed EMERGENT Consult: No MD Notified: Yes Date Notified: 02/09/23 Time Notified: 21:40 Method of Notification: Text Reason For Visit: SEVERE ANEMIA Diagnosis Discharge Diagnosis (1) Anemia requiring transfusions: Status: Acute Code(s): D64.9 - Anemia, unspecified Plan 62-year-old gentleman was admitted with generalized weakness, dyspnea on exertion shortness of breath for 2 to 3 weeks along with bilateral leg swelling understanding. On lab test his hemoglobin was found 5.9 g/22%. 1. Acute anemia associated with iron deficiency-patient is admitted in PCU. Patient required 3 units of PRBC transfusion. Posttransfusion hemoglobin 7.9. Stool for occult blood was negative. Peripheral smear shows polychromasia, hypochromasia anisocytosis and microcytosis suggestive of iron deficiency anemia. CBC shows low MCV MCHC and elevated RDW. Platelet count 443,000 also history of iron versus anemia. Patient had EGD reported normal esophagus multiple gastric polyps resected and retrieved. Normal D2. Colonoscopy reported diverticula in the rectosigmoid colon and sigmoid colon. Large lipoma at hepatic flexure.No specimen collected. Overall patient feeling better after PRBC transfusion 02/12: H&H 7.9/27%. Platelet count 443,000. Plan for repeat EGD today. Discussed with GI 02/13: EGD repeat done on 02/12 reported multiple gastric polyps resected and retrieved. Normal esophagus and D2. No aspirin or anti-inflammatories and for 4 weeks after polyp removal. Protonix 40 mg p.o. twice daily for 12 weeks and sucralfate 1 g p.o. twice daily for 4 weeks. Follow-up in GI clinic. #2 Acute on chronic iron deficiency anemia-possible due to chronic GI blood loss. Haptoglobin 236 normal.\ 02/13: Report hemoglobin 7.5/26. Platelet count 408. Prescription given for ferrous sulfate and ascorbic acid. Follow with PCP. #3 morbid obesity-complicates care, medical course, recovery, and prognosis #4 essential hypertension-patient is on lisinopril, hydrochlorothiazide and amlodipine monitor BP. Currently these medications are on hold. #5 hyperlipidemia-patient is on a statin, this is being held at this time and hecan resume the medication when he goes home Discharge medication reconciliation done. Discharge follow-up instructions completed. Discharge process discussed with the patient and all questions wereanswered to patient's satisfaction. Total time spent, exact 35 minutes on discharge meds reconciliation, examination, coordination of care with nurses and ancillary staff, review of imaging and blood test and discussion with the patient on follow-up instructions. Laboratory Results 02/13/23 08:02: WBC 8.6, RBC 3.52 L, Hgb 7.5 L, Hct 26.0 L, MCV 73.9 L, MCH 21.3L, MCHC 28.8 L, RDW Std Deviation 62.5 H, RDW Coeff of Jennifer 24.2 H, Plt Count 408, MPV 9.3, Immature Gran % (Auto) 0.500, Neut % (Auto) 69.8, Lymph % (Auto) 16.4 L, Dakota % (Auto) 8.8, Eos % (Auto) 4.2, Baso % (Auto) 0.3, Absolute Neuts (auto) 6.0, Absolute Lymphs (auto) 1.41, Nucleated RBC % 0, Differential CommentSCANNED, Polychromasia RARE, Anisocytosis 2+, Microcytosis 1+, Macrocytosis 1+, Ovalocytes RARE, Sodium 138, Potassium 3.7, Chloride 108 H, Carbon Dioxide 26.0,Anion Gap 4 L, BUN 10, Creatinine 1.04, Estim Creat Clear Calc 77.99, Est GFR (MDRD) Af Amer 93, Est GFR (MDRD) Non-Af 77, BUN/Creatinine Ratio 9.6 L, [id number], Calcium 8.4 L Medications at Discharge Home Medications amlodipine 5 mg tablet 5 mg PO QHS 02/09/23 atorvastatin 20 mg tablet 20 mg PO DAILY 02/09/23 lisinopril 20 mg-hydrochlorothiazide 12.5 mg tablet 2 tab PO DAILY 02/09/23 ascorbic acid (vitamin C) 500 mg tablet 500 mg PO BID #60 tabs 02/13/23 ferrous sulfate 325 mg (65 mg iron) tablet (FeroSul) 325 mg PO DAILY 30 days #30tabs 02/13/23 pantoprazole 40 mg tablet,delayed release (Protonix) 40 mg PO BID #60 tabs 02/13/23 sucralfate 1 gram tablet (Carafate) 1 g PO BID 4 weeks #56 tabs 02/13/23 Physical Exam Narrative No abdominal pain acute issues after repeat EGD on 02/12. Breath. Feels better. Physical exam General: Alert, Oriented x3, Cooperative, morbid obesity BMI 42.7 kg/m?. HEENT: Pale conjunctive a. Atraumatic, PERRLA, EOMI, Normocephalic Oral: Oral mucosa dry. No Gingival or Mucosal Lesions/ Ulcerations Neck: Supple, No JVD, Negative Carotid Bruits Lungs: Air entry diminished in bilateral lung bases. No crepitation/rhonchi Cardiovascular: Regular rate, Regular Rhythm, Normal S1, Normal S2, No murmurs Abdomen: Bowel Sounds Present, Soft, Non Tender, Non-Distended : No renal angle tenderness. No suprapubic tenderness. Extremities: No edema, Capillary Refill Less than 3 Seconds Skin: No rashes, No breakdown Musculoskeletal: No Tenderness to Palpation of Joints or Extremities Neurological: Cranial nerves II-XII grossly intact, DTR 2+/4. No acute focal neurological deficit. Psych/Mental Status: Normal Affect, Appropriate. Weight / BMI Weight Weight: 297 lb 6.457 oz Body Mass Index (BMI) 42.6 ABG / Lab / Microbiology Data 02/13/23 08:02 02/13/23 08:02 Laboratory: Laboratory Results - last 24 hr 02/13/23 08:02: WBC 8.6, RBC 3.52 L, Hgb 7.5 L, Hct 26.0 L, MCV 73.9 L, MCH 21.3L, MCHC 28.8 L, RDW Std Deviation 62.5 H, RDW Coeff of Jennifer 24.2 H, Plt Count 408, MPV 9.3, Immature Gran % (Auto) 0.500, Neut % (Auto) 69.8, Lymph % (Auto) 16.4 L, Dakota % (Auto) 8.8, Eos % (Auto) 4.2, Baso % (Auto) 0.3, Absolute Neuts (auto) 6.0, Absolute Lymphs (auto) 1.41, Nucleated RBC % 0, Differential CommentSCANNED, Polychromasia RARE, Anisocytosis 2+, Microcytosis 1+, Macrocytosis 1+, Ovalocytes RARE, Sodium 138, Potassium 3.7, Chloride 108 H, Carbon Dioxide 26.0,Anion Gap 4 L, BUN 10, Creatinine 1.04, Estim Creat Clear Calc 77.99, Est GFR (MDRD) Af Amer 93, Est GFR (MDRD) Non-Af 77, BUN/Creatinine Ratio 9.6 L, [id number], Calcium 8.4 L Microbiology: Microbiology 02/09/23 21:15 Stool Stool Occult Blood (TAYLOR) - Final 02/09/23 20:10 Nasal Secretion SARS-CoV-2 Antigen (Rapid) - Final D/C Instructions Discharge Diet: No restrictions Weight Bearing Status: Weight bearing as tolerated Call your doctor if you observe: Fever of 101 or Higher, Coldness, Increased Pain, Numbness or Tingling, Change in Color, Inability to urinate, Inability to have a bowel movement, Shortness of breath, Dizziness, Fainting spells, Swellingin the ankles, Chest pain, Prolonged hiccupping, Increased palpitations (irregular heartbeat) and Calf discomfort When: IN 2 WEEKS Meaningful Use Info Meaningful Use Diagnoses (Choose all that apply): None applicable Discharge Plan Admission Admit Date/Time: 02/09/23 21:35 Attending Provider: Merrick Cruz Primary Care Provider: Lida Crenshaw Consulting Providers: Shawn Arndt; Domo Lee Discharge Orders/Prescriptions Prescriptions: New pantoprazole [Protonix] 40 mg tablet,delayed release (DR/EC) 40 mg PO BID Qty: 60 2RF Rx Instructions: advised TWICE DAILY FOR 12 weeks and then once daily sucralfate [Carafate] 1 gram tablet 1 g PO BID 28 Days Qty: 56 0RF ferrous sulfate [FeroSul] 325 mg (65 mg iron) tablet 325 mg PO DAILY 30 Days Qty: 30 2RF ascorbic acid (vitamin C) 500 mg tablet 500 mg PO BID Qty: 60 2RF Continued lisinopril-hydrochlorothiazide 20-12.5 mg tablet 2 tab PO DAILY atorvastatin 20 mg tablet 20 mg PO DAILY amlodipine 5 mg tablet 5 mg PO QHS Referrals / Follow Up: Lida Crenshaw MD [Primary Care Provider] - FriendOlayinka DO [Med Staff - Active Staff] - Within 1 Month Disposition Disposition (needs filled in before D/C Order can be placed): Home, Self Care Charges/Coding Visit Charges Inpatient E&M: 58405 Disch Hosp >30min 02/13/23 1100 <Electronically signed by Merrick Cruz MD> Cosigner Signature (if applicable): CC: Dr. Lida Crenshaw MD; Dr. Merrick Cruz MD~ Signed [facility] Work Phone: 1(112) 198-897909-23-2023 Discharge summary Author Merrick Cruz [facility] February 13, 2023 10:57am Note Date/Time February 13, 2023 9:49am [facility] Medical Records Department [address] [place] [address] Instructions for Home/Discharge Instructions 02/13/23 0949 MR#: [id number] Acct: [id number] Name: JUSTIN CARDONA Rep #:[id number] : 1960 62 From: Merrick Puente PCP: Dr. Lida Crenshaw MD Status:ADM IN Discharge Instructions Diet Discharge Diet: No restrictions Activity Discharge Activity: Return to Normal Activity Weight Bearing Status: Weight bearing as tolerated Dressing / Incision Call your doctor if you observe: Fever of 101 or Higher, Coldness, Increased Pain, Numbness or Tingling, Change in Color, Inability to urinate, Inability to have a bowel movement, Shortness of breath, Dizziness, Fainting spells, Swellingin the ankles, Chest pain, Prolonged hiccupping, Increased palpitations (irregular heartbeat) and Calf discomfort Follow Up Care When: IN 2 WEEKS Test Results: Test results from this visit will be discussed in further detail at your follow- up appointment, if applicable. Discharge Plan Admission Admit Date/Time: 02/09/23 21:35 Attending Provider: Merrick Cruz Primary Care Provider: Lida Crenshaw Consulting Providers: Shawn Arndt; Domo Lee Discharge Orders/Prescriptions Prescriptions: New pantoprazole [Protonix] 40 mg tablet,delayed release (DR/EC) 40 mg PO BID Qty: 60 2RF Rx Instructions: advised TWICE DAILY FOR 12 weeks and then once daily sucralfate [Carafate] 1 gram tablet 1 g PO BID 28 Days Qty: 56 0RF ferrous sulfate [FeroSul] 325 mg (65 mg iron) tablet 325 mg PO DAILY 30 Days Qty: 30 2RF ascorbic acid (vitamin C) 500 mg tablet 500 mg PO BID Qty: 60 2RF Continued lisinopril-hydrochlorothiazide 20-12.5 mg tablet 2 tab PO DAILY atorvastatin 20 mg tablet 20 mg PO DAILY amlodipine 5 mg tablet 5 mg PO QHS Referrals / Follow Up: Lida Crenshaw MD [Primary Care Provider] - Friend,DO Olayinka [Med Staff - Active Staff] - Within 1 Month Disposition Disposition (needs filled in before D/C Order can be placed): Home, Self Care 02/13/23 1057<Electronically signed by Merrick Cruz MD>Merrick Cruz MD CC: Dr. Shawn Arndt DO; Dr. Lida Crenshaw MD; Dr. Domo Lee DO~ Signed [facility] Work Phone: 1(870) 417-855209-23-2023 Discharge summary Author Merrick Cruz [facility] February 13, 2023 10:57am Note Date/Time February 13, 2023 9:49am [facility] Medical Records Department [address] [place] [address] Instructions for Home/Discharge Instructions 02/13/23 0949 MR#: [id number] Acct: [id number] Name: JUSTIN CARDONA Rep #:[id number] : 1960 62 From: Merrick Puente PCP: Dr. Lida Crenshaw MD Status:ADM IN Discharge Instructions Diet Discharge Diet: No restrictions Activity Discharge Activity: Return to Normal Activity Weight Bearing Status: Weight bearing as tolerated Dressing / Incision Call your doctor if you observe: Fever of 101 or Higher, Coldness, Increased Pain, Numbness or Tingling, Change in Color, Inability to urinate, Inability to have a bowel movement, Shortness of breath, Dizziness, Fainting spells, Swellingin the ankles, Chest pain, Prolonged hiccupping, Increased palpitations (irregular heartbeat) and Calf discomfort Follow Up Care When: IN 2 WEEKS Test Results: Test results from this visit will be discussed in further detail at your follow- up appointment, if applicable. Discharge Plan Admission Admit Date/Time: 02/09/23 21:35 Attending Provider: Merrick Cruz Primary Care Provider: Lida Crenshaw Consulting Providers: Shawn Arndt; Domo Lee Discharge Orders/Prescriptions Prescriptions: New pantoprazole [Protonix] 40 mg tablet,delayed release (DR/EC) 40 mg PO BID Qty: 60 2RF Rx Instructions: advised TWICE DAILY FOR 12 weeks and then once daily sucralfate [Carafate] 1 gram tablet 1 g PO BID 28 Days Qty: 56 0RF ferrous sulfate [FeroSul] 325 mg (65 mg iron) tablet 325 mg PO DAILY 30 Days Qty: 30 2RF ascorbic acid (vitamin C) 500 mg tablet 500 mg PO BID Qty: 60 2RF Continued lisinopril-hydrochlorothiazide 20-12.5 mg tablet 2 tab PO DAILY atorvastatin 20 mg tablet 20 mg PO DAILY amlodipine 5 mg tablet 5 mg PO QHS Referrals / Follow Up: Lida Crenshaw MD [Primary Care Provider] - Friend,DO Olayinka [Med Staff - Active Staff] - Within 1 Month Disposition Disposition (needs filled in before D/C Order can be placed): Home, Self Care 02/13/23 1057<Electronically signed by Merrick Cruz MD>Merrick Cruz MD CC: Dr. Shawn Arndt DO; Dr. Lida Crenshaw MD; Dr. Domo Lee DO~ Signed [facility] Work Phone: 1(598) 809-649909-22-2023 Progress note Author Merrickroberto Cruz [facility] February 12, 2023 2:11pm Note Date/Time February 12, 2023 2:11pm [facility] Medical Records Department [address] [place] [id number] Progress Note - Hospitalist 02/12/23 1116 MR#: [id number] Acct: [id number] Name: JUSTIN CARDONA Rep #:[id number] : 1960 62 From: Merrick Puente PCP: Dr. Lida Crenshaw MD Status:ADM IN Location: ICU ICU-1 Reason for Visit Reason for Visit: Diagnoses Anemia, unspecified (02/09/23) Objective Data Objective Data Vital Signs: Vital Signs Temp Pulse Resp BP Pulse Ox O2 Del Method 98.4 F 80 18 123/62 H 97 Room Air 02/12/23 09:31 02/12/23 09:31 02/12/23 09:31 02/12/23 09:31 02/12/23 09:31 02/12/23 09:31 Oxygen Delivery Method Room Air Weight: 297 lb 6.457 oz Body Mass Index (BMI) 42.6 Intake & Output: Intake and Output for Last 24 Hours 02/10/23 02/11/23 02/12/23 23:59 23:59 23:59 Intake Total 1396.0 / 1396.0 110 / 1110 1110 / 1110 Balance 1396.0 / 1396.0 110 / 1110 1110 / 1110 Lab / Micro Data 02/11/23 03:25 02/10/23 09:15 Micro: Microbiology 02/09/23 21:15 Stool Stool Occult Blood (TAYLOR) - Final 02/09/23 20:10 Nasal Secretion SARS-CoV-2 Antigen (Rapid) - Final Physical Exam Narrative No abdominal pain. Patient feeling comfortable. Plan for repeat EGD today denies obvious upper or lower GI bleeding including hematemesis melena or hematochezia. Physical exam General: Alert, Oriented x3, Cooperative, morbid obesity BMI 42.7 kg/m?. HEENT: Pale conjunctive a. Atraumatic, PERRLA, EOMI, Normocephalic Oral: Oral mucosa dry. No Gingival or Mucosal Lesions/ Ulcerations Neck: Supple, No JVD, Negative Carotid Bruits Lungs: Air entry diminished in bilateral lung bases. No crepitation/rhonchi Cardiovascular: Regular rate, Regular Rhythm, Normal S1, Normal S2, No murmurs Abdomen: Bowel Sounds Present, Soft, Non Tender, Non-Distended : No renal angle tenderness. No suprapubic tenderness. Extremities: No edema, Capillary Refill Less than 3 Seconds Skin: No rashes, No breakdown Musculoskeletal: No Tenderness to Palpation of Joints or Extremities Neurological: Cranial nerves II-XII grossly intact, DTR 2+/4. No acute focal neurological deficit. Psych/Mental Status: Normal Affect, Appropriate. Assessment & Plan Assessment/Plan (1) Anemia requiring transfusions: PLAN: Plan 1. Acute anemia associated with iron deficiency-patient is admitted in PCU. Patient required 3 units of PRBC transfusion. Posttransfusion hemoglobin 7.9. Stool for occult blood was negative. Peripheral smear shows polychromasia, hypochromasia anisocytosis and microcytosis suggestive of iron deficiency anemia. CBC shows low MCV MCHC and elevated RDW. Platelet count 443,000 also history of iron versus anemia. Patient had EGD reported normal esophagus multiple gastric polyps resected and retrieved. Normal D2. Colonoscopy reported diverticula in the rectosigmoid colon and sigmoid colon. Large lipoma at hepatic flexure.No specimen collected. Overall patient feeling better after PRBC transfusion 9/22: H&H 7.9/27%. Platelet count 443,000. Plan for repeat EGD today. Discussed with GI #2 Acute on chronic iron deficiency anemia-possible due to chronic GI blood loss. Haptoglobin 236 normal. #3 morbid obesity-complicates care, medical course, recovery, and prognosis #4 essential hypertension-patient is on lisinopril, hydrochlorothiazide and amlodipine monitor BP. Currently these medications are on hold. #5 hyperlipidemia-patient is on a statin, this is being held at this time and hecan resume the medication when he goes home Charges/Coding Visit Charges Inpatient E&M: 46771 Subs Hosp L2 02/12/23 1411 <Electronically signed by Merrick Cruz MD> Cosigner Signature (if applicable): CC: ~ Signed [facility] Work Phone: 1(952) 402-726709-22-2023 Procedure [facility]09[facility]22-2023 [facility]09-22-2023 [facility] 02-12-2023 [facility]-2023 Procedure note [facility]09-22-2023 [facility] 02-12-2023 [facility]-2023 Procedure note [facility]09-21-2023 Progress note Author Merrick Cruz [facility] February 11, 2023 5:08pm Note Date/Time February 11, 2023 7:50am [facility] Medical Records Department [address] [place] [address] Progress Note - Hospitalist 02/11/23 0749 MR#: [id number] Acct: [id number] Name: JUSTIN CARDONA Rep #:[id number] : 1960 62 From: Merrick Puente PCP: Dr. Lida Crenshaw MD Status:ADM IN Location: ICU ICU08-1 Reason for Visit Reason for Visit: Diagnoses Anemia, unspecified (02/09/23) Subjective Subjective Follow-up for severe iron deficits anemia that required 3 units of PRBC transfusion Objective Data Objective Data Vital Signs: Vital Signs Temp Pulse Resp BP Pulse Ox O2 Del Method 98 F 95 16 136/75 H 98 Room Air 02/11/23 02:00 02/11/23 02:00 02/11/23 02:00 02/11/23 02:00 02/11/23 02:00 02/11/23 02:00 Oxygen Delivery Method Room Air Weight: 297 lb 6.457 oz Body Mass Index (BMI) 42.6 Intake & Output: Intake and Output for Last 24 Hours 02/09/23 02/10/23 02/11/23 23:59 23:59 23:59 Intake Total 0 / 0 1396.0 / 1396.0 Balance 0 / 0 1396.0 / 1396.0 Lab / Micro Data 02/11/23 03:25 02/10/23 09:15 Labs: Laboratory Results - last 24 hr 02/09/23 20:44: Crossmatch See Detail 02/09/23 22:19: Haptoglobin 236 02/10/23 09:15: WBC 7.7, RBC 3.59 L, Hgb 7.7 L, Hct 26.1 L, MCV 72.7 L D, MCH 21.4 L, MCHC 29.5 L D, RDW Std Deviation 56.7 H, RDW Coeff of Jennifer 21.9 H, Plt Count 431, MPV 9.0, Immature Gran % (Auto) 0.500, Neut % (Auto) 70.2 H, Lymph % (Auto) 15.4 L, Dakota % (Auto) 10.1 H, Eos % (Auto) 3.3, Baso % (Auto) 0.5, Absolute Neuts (auto) 5.4, Absolute Lymphs (auto) 1.18, Nucleated RBC % 0.3, Differential Comment SCANNED, Polychromasia RARE, Microcytosis 2+, Macrocytosis 1+, Ovalocytes RARE, Sodium 138, Potassium 3.9, Chloride 108 H, Carbon Dioxide 28.0, Anion Gap 2 L, BUN 15, Creatinine 0.98, Estim Creat Clear Calc 82.77, Est GFR (MDRD) Af Amer 100, Est GFR (MDRD) Non-Af 83, BUN/Creatinine Ratio 15.3, Glucose 99, Calcium 8.3 L 02/10/23 15:50: Hgb 8.6 L, Hct 29.8 L 02/11/23 03:25: WBC 8.7, RBC 3.75 L, Hgb 7.9 L, Hct 27.1 L, MCV 72.3 L, MCH 21.1L, MCHC 29.2 L, RDW Std Deviation 57.2 H, RDW Coeff of Jennifer 22.5 H, Plt Count 443, MPV 9.3, Immature Gran % (Auto) 0.600, Neut % (Auto) 68.4, Lymph % (Auto) 18.6 L, Dakota % (Auto) 8.9, Eos % (Auto) 3.0, Baso % (Auto) 0.5, Absolute Neuts (auto) 6.0, Absolute Lymphs (auto) 1.62, Nucleated RBC % 0.2, Polychromasia RARE, Hypochromasia 1+, Anisocytosis 2+, Microcytosis 2+ Micro: Microbiology 02/09/23 21:15 Stool Stool Occult Blood (TAYLOR) - Final 02/09/23 20:10 Nasal Secretion SARS-CoV-2 Antigen (Rapid) - Final Physical Exam Narrative Patient feeling short of breath on exertion prior to admission. Denies obvious upper or lower GI bleeding including hematemesis melena or hematochezia. Physical exam General: Alert, Oriented x3, Cooperative, morbid obesity BMI 42.7 kg/m?. HEENT: Pale conjunctive a. Atraumatic, PERRLA, EOMI, Normocephalic Oral: Oral mucosa dry. No Gingival or Mucosal Lesions/ Ulcerations Neck: Supple, No JVD, Negative Carotid Bruits Lungs: Air entry diminished in bilateral lung bases. No crepitation/rhonchi Cardiovascular: Regular rate, Regular Rhythm, Normal S1, Normal S2, No murmurs Abdomen: Bowel Sounds Present, Soft, Non Tender, Non-Distended : No renal angle tenderness. No suprapubic tenderness. Extremities: No edema, Capillary Refill Less than 3 Seconds Skin: No rashes, No breakdown Musculoskeletal: No Tenderness to Palpation of Joints or Extremities Neurological: Cranial nerves II-XII grossly intact, DTR 2+/4. No acute focal neurological deficit. Psych/Mental Status: Normal Affect, Appropriate. Assessment & Plan Assessment/Plan (1) Anemia requiring transfusions: PLAN: Plan 1. Acute anemia associated with iron deficiency-patient is admitted in PCU. Patient required 3 units of PRBC transfusion. Posttransfusion hemoglobin 7.9. Stool for occult blood was negative. Peripheral smear shows polychromasia, hypochromasia anisocytosis and microcytosis suggestive of iron deficiency anemia. CBC shows low MCV MCHC and elevated RDW. Platelet count 443,000 also history of iron versus anemia. Patient had EGD reported normal esophagus multiple gastric polyps resected and retrieved. Normal D2. Colonoscopy reported diverticula in the rectosigmoid colon and sigmoid colon. Large lipoma at hepatic flexure.No specimen collected. Overall patient feeling better after PRBC transfusion #2 Acute on chronic iron deficiency anemia-possible due to chronic GI blood loss. Haptoglobin 236 normal. #3 morbid obesity-complicates care, medical course, recovery, and prognosis #4 essential hypertension-patient is on lisinopril, hydrochlorothiazide and amlodipine monitor BP. Currently these medications are on hold. #5 hyperlipidemia-patient is on a statin, this is being held at this time and hecan resume the medication when he goes home Charges/Coding Visit Charges Inpatient E&M: 62408 Subs Hosp L2 02/11/23 1708 <Electronically signed by Merrick Cruz MD> Cosigner Signature (if applicable): CC: ~ Signed [facility] Work Phone: 1(990) 390-887909-21-2023 Consult note Author Olayinka Manning [facility] February 11, 2023 11:21am Note Date/Time February 10, 2023 7:26pm [facility] Medical Records Department [address] [facility] [place] [address] Consultation - GI 02/10/231925 MR#: [id number] Acct: [id number] Name: JUSTIN CARDONA Rep #:[id number] : 1960 62 From: Olayinka Manning DO PCP: Dr. Lida Crenshaw MD Status:ADM IN Location: ICU ICU08-1 HPI Consult Data Date of Consult: 02/11/23 HPI Narrative Reason for Consultation: Anemia HPI Narrative: JUSTIN CARDONA, is a 62-year-old male past medical history of hypertension and hypercholesterolemia presents with generalized weakness, shortness of breath, and dyspnea on exertion that he has had for the last 2 to 3 weeks. 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 Over the last few days, his swelling has resolved. He becomes very short of breath and has dyspnea on exertion, and low energy. He was seen by his primary care provider, Dr. Crenshaw, who sent him in for further evaluation. He denies any chest pain, but may have occasional pressure. No DVT or PE risk factors. He denies any black stool or any bleeding diathesis. Labs notable for hemoglobin 5.9, MCV 66, iron 14, iron saturation 4%, ferritin 5, normal BMP, normal LFTs. UA was normal. CT chest abdomen pelvis without contrast showed bilateral nonobstructing nephroliths, otherwise no abnormalities. Chest x-ray was normal. [facility] Medical History Hypercholesteremia Hypertension Home Medications amlodipine 5 mg tablet 5 mg PO QHS 02/09/23 [History Last Taken Unknown] atorvastatin 20 mg tablet 20 mg PO DAILY 02/09/23 [History Last Taken Unknown] lisinopril 20 mg-hydrochlorothiazide 12.5 mg tablet 2 tab PO DAILY 02/09/23 [History Last Taken Unknown] Allergy/AdvReac Type Severity Reaction Status Date / Time No Known Allergies Allergy Verified 02/09/23 18:42 Social History Smoking Status: Never smoker ROS Constitutional Constitutional: Reports fatigue and malaise; Denies chills, fever(s) or weakness Eyes Eyes: Denies change in vision Cardiovascular Cardiovascular: Reports chest pain and lightheadedness; Denies edema or syncope Respiratory/Chest Respiratory/Chest: Denies cough Gastrointestinal Gastrointestinal: Denies abdominal pain, constipation, diarrhea, hematemesis, hematochezia, melena, nausea or vomiting Genitourinary Genitourinary: Denies dysuria Hematologic/Lymphatic Hematologic/Lymphatic: Denies easy bleeding or easy bruising Physical Exam Const alert, oriented x3, no apparent distress and healthy appearing Constitutional Narrative: Patient is morbidly obese General Appearance: cooperative, well kempt and well developed Orientation / Consciousness: awake, oriented to person, oriented to place and oriented to time HEENT normocephalic, head/scalp atraumatic and moist oral mucous membranes Eyes PERRL, EOMs intact bilaterally and conjunctivae normal Neck supple, no JVD, thyroid normal and no carotid bruits General: trachea midline Resp normal respiratory effort, no retractions, no use of accessory muscles and clearto auscultation bilaterally Auscultation: Negative for rales, rhonchi or wheezes Cardio regular rate, regular rhythm, S1 normal heart sound, S2 normal heart sound, no murmurs, no rub and no gallops GI normal to inspection, nondistended, normoactive bowel sounds, soft to palpation,non-tender and non-distended Extremity no clubbing, cyanosis or edema Skin no rashes or lesions noted General Skin Exam: no breakdown Neuro oriented x3, CN's II-XII intact bilaterally, moves all extremities, no focal motor deficits and no sensory deficits noted Sensorium / Orientation: awake, alert, oriented to person, oriented to place andoriented to time Speech: speech normal Psych affect normal Lab / Micro Data 02/11/23 03:25 02/10/23 09:15 Labs: Laboratory Results - last 24 hr 02/09/23 19:30: WBC 9.2, RBC 3.29 L, Hgb 5.9 L*, Hct 22.0 L, MCV 66.9 L, MCH 17.9 L, MCHC 26.8 L, RDW Std Deviation 45.1 H, RDW Coeff of Jennifer 18.6 H, Plt Count 541 H, MPV 8.9, Immature Gran % (Auto) 0.500, Neut % (Auto) 74.3 H, Lymph % (Auto) 16.7 L, [place] % (Auto) 6.3, Eos % (Auto) 1.9, Baso % (Auto) 0.3, Absolute Neuts (auto) 6.8, Absolute Lymphs (auto) 1.53, Nucleated RBC % 0.3, Diff Path Review May foll, Platelet Estimate MOD INC, RBC Morphology N CHROM, Hypochromasia 1+, Anisocytosis 1+, Microcytosis 1+, Ovalocytes RARE, Sodium 138,Potassium 3.8, Chloride 105, Carbon Dioxide 29.0, Anion Gap 4 L, BUN 16, Creatinine 1.22, Estim Creat Clear Calc 66.48, Est GFR (MDRD) Af Amer 78, Est GFR (MDRD) Non-Af 64, BUN/Creatinine Ratio 13.1, Glucose 119 H, Calcium 8.5, TIBC 350, Ferritin 5 L, Troponin I High Sens 6, Vitamin B12 404, Folate 6.50 02/09/23 19:50: Iron 14 L, TIBC 346, Iron Saturation 4.0 L 02/09/23 20:44: Antibody Screen NEGATIVE, Crossmatch See Detail 02/09/23 22:35: Urine Color Yellow, Urine Clarity Clear, Urine pH 7.0, Ur Specific [place] 1.010, Urine Protein Negative, Urine Glucose (UA) Normal, UrineKetones Negative, Urine Occult Blood Negative, Urine Nitrite Negative, Urine Bilirubin Negative, Urine Urobilinogen Normal, Ur Leukocyte Esterase Negative, Urine RBC 0 SEEN, Urine WBC 0 SEEN, Ur Squamous Epith Cells 0 SEEN, Urine Bacteria 0 SEEN, Urine Mucus 0 SEEN 02/10/23 09:15: WBC 7.7, RBC 3.59 L, Hgb 7.7 L, Hct 26.1 L, MCV 72.7 L D, MCH 21.4 L, MCHC 29.5 L D, RDW Std Deviation 56.7 H, RDW Coeff of Jennifer 21.9 H, Plt Count 431, MPV 9.0, Immature Gran % (Auto) 0.500, Neut % (Auto) 70.2 H, Lymph % (Auto) 15.4 L, [place] % (Auto) 10.1 H, Eos % (Auto) 3.3, Baso % (Auto) 0.5, Absolute Neuts (auto) 5.4, Absolute Lymphs (auto) 1.18, Nucleated RBC % 0.3, Differential Comment SCANNED, Polychromasia RARE, Microcytosis 2+, Macrocytosis 1+,Ovalocytes RARE, Sodium 138, Potassium 3.9, Chloride 108 H, Carbon Dioxide 28.0,Anion Gap 2 L, BUN 15, Creatinine 0.98, Estim Creat Clear Calc 82.77, Est GFR (MDRD) Af Amer 100, Est GFR (MDRD) Non-Af 83, BUN/Creatinine Ratio 15.3, [id number], Calcium 8.3 L 02/10/23 15:50: Hgb 8.6 L, Hct 29.8 L Micro: Microbiology 02/09/23 21:15 Stool Stool Occult Blood (TAYLOR) - Final 02/09/23 20:10 Nasal Secretion SARS-CoV-2 Antigen (Rapid) - Final Radiology Impression Chest X-Ray 02/09/23 20:45 IMPRESSION: Normal x-ray examination of the chest. Electronically Signed: Leon Madera MD at 22:13 EDT Reading Location ID and State: [address] [place] [address] Tel , Service support , Chest/Abdomen/Pelvis CT 02/09/23 21:50 IMPRESSION: Bilateral punctate nonobstructing nephroliths. Anemia. Sensitivity limited without IV and oral contrast. Electronically Signed: Leon Madera MD at 22:46 EDT Reading Location ID and State: [facility] / [place] Tel , Service support , Assessment & Plan Assessment/Plan (1) Anemia requiring transfusions: PLAN: Plan Patient is a 62-year-old male with history of hypertension, hyperlipidemia and morbid obesity who presented to [facility] ED on 02/09/2023 with generalized weakness and shortness of breath. He has severe acute iron deficiency anemia. Unclear etiology but highest suspicion is for an upper GI bleed given known history of GERD, no dark or bloody stools noted, and fairly recent colonoscopy (within last 3 to 4 years) that was normal. Cannot rule out lower GI bleed. UAnormal, no concern for urinary source of bleed. Low concern for intravascular hemolysis but cannot rule out. Labs on admit of hemoglobin 5.9, MCV 66, iron 14, iron saturation 4%, ferritin 5. Hemodynamically stable. CT chest abdomen pelvis without contrast with no overt abnormalities. He will undergo an EGD and colonoscopy tomorrow. He was explained alternatives,risk, benefits, including bleeding, perforation, need for emergent surgery and . He will have an ASA of three. Charges/Coding Visit Charges Inpatient E&M: 72376 Subs Hosp L3 02/11/23 1121 <Electronically signed by Olayinka Friend DO> Cosigner Signature (if applicable): CC: Dr. Shawn Arndt, ; Dr. Lida Crenshaw MD; Dr. Domo Lee DO~ Signed [facility] Work Phone: 1(753) 193-162809-21-2023 [facility]-11[facility] Procedure note [facility]09-20-2023 Progress note Author Domo Lee [facility] February 10, 2023 5:30pm Note Date/Time February 10, 2023 5:30pm [facility] Medical Records Department [address] [place] [address] Progress Note - Hospitalist 02/10/23 1723 MR#: [id number] Acct: [id number] Name: JUSTIN CARDONA Rep #:[id number] : 1960 62 From: Domo Lee DO PCP: Dr. Lida Crenshaw MD Status:ADM IN Location: ICU ICU08-1 Reason for Visit Reason for Visit: Diagnoses Anemia, unspecified (02/09/23) Subjective Subjective Patient was seen and examined today, he was admitted yesterday for severe anemiaand received blood transfusions, I repeated the patient's blood count this afternoon and his hemoglobin was 8.6. I talked to gastroenterology, I feel it would be a good idea for the patient to undergo an upper and lower endoscopy both and so I recommend that he be prepped for colonoscopy tomorrow and also have an EGD tomorrow and gastroenterology agreed with this. I went over this with the patient. Patient admits to some mild weight loss over the past several months but was nonspecific, he said his last colonoscopy was approximately 4 years ago and he does not remember that anything of significance was found on the colonoscopy. Objective Data Objective Data Vital Signs: Vital Signs Temp Pulse Resp BP Pulse Ox O2 Del Method 98.7 F 85 20 H 125/72 H 97 Room Air 02/10/23 14:00 02/10/23 14:00 02/10/23 14:00 02/10/23 14:00 02/10/23 14:00 02/10/23 14:00 Oxygen Delivery Method Room Air Weight: 134.9 kg Body Mass Index (BMI) 42.6 Intake & Output: Intake and Output for Last 24 Hours 02/08/23 02/09/23 02/10/23 23:59 23:59 23:59 Intake Total 0 / 0 1278.5 / 1278.5 Balance 0 / 0 1278.5 / 1278.5 Lab / Micro Data 02/10/23 15:50 02/10/23 09:15 Labs: Laboratory Results - last 24 hr 02/09/23 19:30: WBC 9.2, RBC 3.29 L, Hgb 5.9 L*, Hct 22.0 L, MCV 66.9 L, MCH 17.9 L, MCHC 26.8 L, RDW Std Deviation 45.1 H, RDW Coeff of Jennifer 18.6 H, Plt Count 541 H, MPV 8.9, Immature Gran % (Auto) 0.500, Neut % (Auto) 74.3 H, Lymph % (Auto) 16.7 L, [place] % (Auto) 6.3, Eos % (Auto) 1.9, Baso % (Auto) 0.3, Absolute Neuts (auto) 6.8, Absolute Lymphs (auto) 1.53, Nucleated RBC % 0.3, Diff Path Review May foll, Platelet Estimate MOD INC, RBC Morphology N CHROM, Hypochromasia 1+, Anisocytosis 1+, Microcytosis 1+, Ovalocytes RARE, Sodium 138,Potassium 3.8, Chloride 105, Carbon Dioxide 29.0, Anion Gap 4 L, BUN 16, Creatinine 1.22, Estim Creat Clear Calc 66.48, Est GFR (MDRD) Af Amer 78, Est GFR (MDRD) Non-Af 64, BUN/Creatinine Ratio 13.1, Glucose 119 H, Calcium 8.5, TIBC 350, Ferritin 5 L, Troponin I High Sens 6, Vitamin B12 404, Folate 6.50 02/09/23 19:50: Iron 14 L, TIBC 346, Iron Saturation 4.0 L 02/09/23 20:44: Antibody Screen NEGATIVE, Crossmatch See Detail 02/09/23 22:35: Urine Color Yellow, Urine Clarity Clear, Urine pH 7.0, Ur Specific [place] 1.010, Urine Protein Negative, Urine Glucose (UA) Normal, UrineKetones Negative, Urine Occult Blood Negative, Urine Nitrite Negative, Urine Bilirubin Negative, Urine Urobilinogen Normal, Ur Leukocyte Esterase Negative, Urine RBC 0 SEEN, Urine WBC 0 SEEN, Ur Squamous Epith Cells 0 SEEN, Urine Bacteria 0 SEEN, Urine Mucus 0 SEEN 02/10/23 09:15: WBC 7.7, RBC 3.59 L, Hgb 7.7 L, Hct 26.1 L, MCV 72.7 L D, MCH 21.4 L, MCHC 29.5 L D, RDW Std Deviation 56.7 H, RDW Coeff of Jennifer 21.9 H, Plt Count 431, MPV 9.0, Immature Gran % (Auto) 0.500, Neut % (Auto) 70.2 H, Lymph % (Auto) 15.4 L, [place] % (Auto) 10.1 H, Eos % (Auto) 3.3, Baso % (Auto) 0.5, Absolute Neuts (auto) 5.4, Absolute Lymphs (auto) 1.18, Nucleated RBC % 0.3, Differential Comment SCANNED, Polychromasia RARE, Microcytosis 2+, Macrocytosis 1+, Ovalocytes RARE, Sodium 138, Potassium 3.9, Chloride 108 H, Carbon Dioxide 28.0, Anion Gap 2 L, BUN 15, Creatinine 0.98, Estim Creat Clear Calc 82.77, Est GFR (MDRD) Af Amer 100, Est GFR (MDRD) Non-Af 83, BUN/Creatinine Ratio 15.3, Glucose 99, Calcium 8.3 L 02/10/23 15:50: Hgb 8.6 L, Hct 29.8 L Micro: Microbiology 02/09/23 21:15 Stool Stool Occult Blood (TAYLOR) - Final 02/09/23 20:10 Nasal Secretion SARS-CoV-2 Antigen (Rapid) - Final Radiography Diagnostic Testing: Radiology Impression Chest X-Ray 02/09/23 20:45 IMPRESSION: Normal x-ray examination of the chest. Electronically Signed: Leon Madera MD at 22:13 EDT Reading Location ID and State: [address] [place] [address] Tel , Service support , Chest/Abdomen/Pelvis CT 02/09/23 21:50 IMPRESSION: Bilateral punctate nonobstructing nephroliths. Anemia. Sensitivity limited without IV and oral contrast. Electronically Signed: Leon Madera MD at 22:46 EDT Reading Location ID and State: [address] [place] [address] Tel , Service support , Physical Exam Const alert, oriented x3, no apparent distress and healthy appearing Constitutional Narrative: Patient is morbidly obese General Appearance: cooperative, well kempt and well developed Orientation / Consciousness: awake, oriented to person, oriented to place and oriented to time HEENT normocephalic, head/scalp atraumatic and moist oral mucous membranes Eyes PERRL, EOMs intact bilaterally and conjunctivae normal Neck supple, no JVD, thyroid normal and no carotid bruits General: trachea midline Resp normal respiratory effort, no retractions, no use of accessory muscles and clearto auscultation bilaterally Auscultation: Negative for rales, rhonchi or wheezes Cardio regular rate, regular rhythm, S1 normal heart sound, S2 normal heart sound, no murmurs, no rub and no gallops GI normal to inspection, nondistended, normoactive bowel sounds, soft to palpation,non-tender and non-distended Extremity no clubbing, cyanosis or edema Skin no rashes or lesions noted General Skin Exam: no breakdown Neuro oriented x3, CN's II-XII intact bilaterally, moves all extremities, no focal motor deficits and no sensory deficits noted Sensorium / Orientation: awake, alert, oriented to person, oriented to place andoriented to time Speech: speech normal Psych affect normal Assessment & Plan Assessment/Plan (1) Anemia requiring transfusions: PLAN: Plan 1. Acute anemia associated with iron deficiency-suspect possible underlying chronic GI blood loss from neoplasm, polyp, or other pathology-again patient will be prepped for colonoscopy and also undergo an EGD tomorrow, CBC will be repeated tomorrow. Patient remains on IV Protonix #2 iron deficiency anemia-again, this is probably indicative of gradual blood loss over period of time, I do not feel the patient would benefit from iron infusions at this time #3 morbid obesity-complicates care, medical course, recovery, and prognosis #4 essential hypertension-patient is on lisinopril, hydrochlorothiazide and amlodipine-these medications are being held at this time his blood pressure is under control at this time and these medications will have to be reviewed beforehis discharge home #5 hyperlipidemia-patient is on a statin, this is being held at this time and hecan resume the medication when he goes home Total clinical time spent by myself addressing the patient's medical issues, reviewing all of his data, and collaborating with patient's care team: 35 minutes Charges/Coding Visit Charges Inpatient E&M: 25360 Subs Hosp L2 02/10/23 8820 <Electronically signed by Domo Lee DO> Cosigner Signature (if applicable): CC: ~ Signed [facility] Work Phone: 1(494) 938-146009-20-2023 History and physical note Author Shawn Arndt [facility] February 10, 2023 1:21am Note Date/Time February 09, 2023 9:50pm [facility] Medical Records Department [address] [place] [address] H&P Exam - Hospitalist 02/09/232130 MR#: [id number] Acct: [id number] Name: JUSTIN CARDONA #:[id number] : 1960 62 From: Shawn bello DO PCP: Dr. Lida Crenshaw MD Status:ADM IN Location: ICU ICU08-1 HPI - General General Date of Admission: 02/09/23 Date of Service: 02/09/23 Chief Complaint: Severe anemia HPI Narrative JUSTIN CARDONA, is a 62 M with history of hypertension, hyperlipidemia and morbid obesity who presented to [facility] ED on 02/09/2023 with generalized weakness and shortness of breath. Patient seen at bedside, present. Patient sitting comfortably in bed, alert and oriented, conversing normally, no acute distress. Patient currently denies any acute pain or discomfort. Denies any chest pain or shortness of breath at rest. Patient and state that the patient has been progressively having worsening shortness ofbreath and chest tightness over the last several weeks to months. Patient was on the [facility] [employer] last week and was able to attend every day, but his activity was significantly limited. Patient notably denies any dark or bloody bowel movements. Denies any hematemesis. Denies any change in stool consistency. He notably had a normal colonoscopy about 3 to 4 years ago per hisreport. He does have a history of acid reflux, however this has seemingly been fairly well controlled with omeprazole at home. Denies any abdominal pain or discomfort. No other acute concerns at this time. Vitals in the ED notable for heart rate 90s to 100s (sinus rhythm), mild hypertension with systolic BPs in 130s to 140s, afebrile, no other abnormalities. Labs notable for hemoglobin 5.9, MCV 66, iron 14, iron saturation 4%, ferritin 5, normal BMP, normal LFTs. UA was normal. CT chest abdomen pelvis without contrast showed bilateral nonobstructing nephroliths, otherwise no abnormalities. Chest x-ray was normal. [facility] Medical History Hypercholesteremia Hypertension Home Medications amlodipine 5 mg tablet 5 mg PO QHS 02/09/23 [History Last Taken Unknown] atorvastatin 20 mg tablet 20 mg PO DAILY 02/09/23 [History Last Taken Unknown] lisinopril 20 mg-hydrochlorothiazide 12.5 mg tablet 2 tab PO DAILY 02/09/23 [History Last Taken Unknown] Allergy/AdvReac Type Severity Reaction Status Date / Time No Known Allergies Allergy Verified 02/09/23 18:42 Social History Smoking Status: Never smoker ROS Constitutional Constitutional: Reports fatigue and malaise; Denies chills, fever(s) or weakness Eyes Eyes: Denies change in vision Cardiovascular Cardiovascular: Reports chest pain and lightheadedness; Denies edema or syncope Respiratory/Chest Respiratory/Chest: Denies cough Gastrointestinal Gastrointestinal: Denies abdominal pain, constipation, diarrhea, hematemesis, hematochezia, melena, nausea or vomiting Genitourinary Genitourinary: Denies dysuria Hematologic/Lymphatic Hematologic/Lymphatic: Denies easy bleeding or easy bruising Vital Signs Vital Signs Vital Signs: 02/09/23 18:44 02/09/23 20:03 02/09/23 20:03 Temperature 98.6 F Temperature Source Temporal Pulse Rate 106 H 101 H Respiratory Rate 18 24 H Respiratory Effort Respiratory Depth Respiratory Pattern Blood Pressure 131/71 H 144/81 H Blood Pressure Mean 91 102 Pulse Ox 99 98 98 Oxygen Delivery Method Room Air Room Air Room Air 02/09/23 20:03 02/09/23 20:03 02/09/23 20:07 Temperature Temperature Source Pulse Rate Respiratory Rate 17 Respiratory Effort Normal Normal Respiratory Depth Normal Respiratory Pattern Normal Blood Pressure Blood Pressure Mean Pulse Ox 99 Oxygen Delivery Method Room Air Room Air Weight Weight: 133.175 kg Body Mass Index (BMI) 42.1 Physical Exam Const alert, oriented x3, no apparent distress and well nourished Constitutional Narrative: Pleasant male, morbidly obese, sitting comfortably in bed, conversing normally, no acute distress. Does appear somewhat pale. General Appearance: cooperative, comfortable, well kempt and well developed HEENT normocephalic, head/scalp atraumatic, hearing grossly normal bilaterally, nasal mucous membranes and turbinates normal and moist oral mucous membranes Eyes PERRL, EOMs intact bilaterally and conjunctivae normal Neck full ROM, no lymphadenopathy and supple Lymph Lymphatic: no lymphadenopathy noted Chest inspection of chest normal Resp normal respiratory effort, normal air movement, no use of accessory muscles and clear to auscultation bilaterally Cardio regular rate, regular rhythm, no murmurs and peripheral pulses 2+ throughout GI normal to inspection, nondistended, normoactive bowel sounds, soft to palpation,non-tender and non-distended Back/Spine normal ROM Extremity normal to inspection, full ROM and no pedal edema Skin no rashes or lesions noted Psych mental status grossly normal Results Lab / Micro Data 02/09/23 19:30 02/09/23 19:30 Labs: Laboratory Results - last 24 hr 02/09/23 19:30: WBC 9.2, RBC 3.29 L, Hgb 5.9 L*, Hct 22.0 L, MCV 66.9 L, MCH 17.9 L, MCHC 26.8 L, RDW Std Deviation 45.1 H, RDW Coeff of Jennifer 18.6 H, Plt Count 541 H, MPV 8.9, Immature Gran % (Auto) 0.500, Neut % (Auto) 74.3 H, Lymph % (Auto) 16.7 L, [place] % (Auto) 6.3, Eos % (Auto) 1.9, Baso % (Auto) 0.3, Absolute Neuts (auto) 6.8, Absolute Lymphs (auto) 1.53, Nucleated RBC % 0.3, Diff Path Review May foll, Platelet Estimate MOD INC, RBC Morphology N CHROM, Hypochromasia 1+, Anisocytosis 1+, Microcytosis 1+, Ovalocytes RARE, Sodium 138,Potassium 3.8, Chloride 105, Carbon Dioxide 29.0, Anion Gap 4 L, BUN 16, Creatinine 1.22, Estim Creat Clear Calc 66.48, Est GFR (MDRD) Af Amer 78, Est GFR (MDRD) Non-Af 64, BUN/Creatinine Ratio 13.1, Glucose 119 H, Calcium 8.5, Troponin I High Sens 6 02/09/23 20:44: Crossmatch See Detail Micro: Microbiology 02/09/23 20:10 Nasal Secretion SARS-CoV-2 Antigen (Rapid) - Final Assessment & Plan Assessment/Plan (1) Anemia requiring transfusions: PLAN: Plan Patient is a 62-year-old male with history of hypertension, hyperlipidemia and morbid obesity who presented to [facility] ED on 02/09/2023 with generalized weakness and shortness of breath. 1. Severe acute iron deficiency anemia Unclear etiology but highest suspicion is for an upper GI bleed given known history of GERD, no dark or bloody stools noted, and fairly recent colonoscopy (within last 3 to 4 years) that was normal. Cannot rule out lower GI bleed. UAnormal, no concern for urinary source of bleed. Low concern for intravascular hemolysis but cannot rule out. Labs on admit of hemoglobin 5.9, MCV 66, iron 14, iron saturation 4%, ferritin 5. Hemodynamically stable. CT chest abdomen pelvis without contrast with no overt abnormalities. ? Admit to cardiac telemetry bed in PCU. GI consulted. N.p.o. in preparation for likely EGD tomorrow. We will transfuse 1 unit of packed red blood cells, repeat CBC in a.m. Start IV PPI twice daily. Can consider IV iron transfusionsprior to discharge. B12, folate, haptoglobin ordered. Chronic medical conditions: ? Hypertension: BP 130s to 140 systolic in ED. Continue home amlodipine 5 mg daily. Hold home lisinopril?hydrochlorothiazide for now given severe anemia andconcern for possible hypovolemia, restart as able. ? Hyperlipidemia: Continue home statin. ? Morbid obesity: BMI 42. Encouraged lifestyle modifications. DVT prophylaxis: Lovenox CODE STATUS: Full code, verified Expected disposition: Home, TBD Total clinical time spent by myself addressing the patient's medical issues, reviewing all the data, and collaborating with patient's care team: 55 minutes. Charges/Coding Visit Charges Inpatient E&M: 42822 Init Hosp L2 02/10/23 0121 <Electronically signed by Shawn Arndt DO> Cosigner Signature (if applicable): CC: Dr. Shawn Arndt DO; Dr. Lida Crenshaw MD~ Signed [facility] Work Phone: 1(698) 222-657309-20-2023 Discharge summary Author Michael Herrera [facility] February 09, 2023 10:11pm Note Date/Time February 09, 2023 10:11pm [facility] Medical Records Department [address] [place] [address] Emergency Department Summary 02/09/23 MR#: [id number] Acct: [id number] Name: JUSTIN CARDONA Rep #:[id number] : 1960 62 From: Michael Herrera MD PCP: Dr. Lida Crenshaw MD Status:ADM IN Location: ICU ICU08-1 HPI History of Present Illness Chief Complaint: Shortness of Breath Narrative Narrative: 62-year-old male past medical history of hypertension and hypercholesterolemia presents with generalized weakness, shortness of breath, and dyspnea on exertionthat he has had for the last 2 to 3 weeks. 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 Over the last few days, his swelling has resolved. He becomes very short of breath and has dyspnea on exertion, and low energy. He was seen by his primary care provider, Dr. Crenshaw, who sent him in for further evaluation. He denies any chest pain, but may have occasional pressure. No DVT or PE risk factors. He denies any black stool or any bleeding diathesis. [facility] Medical History Hypercholesteremia Hypertension Home Medications amlodipine 5 mg tablet 5 mg PO QHS 02/09/23 [History Last Taken Unknown] atorvastatin 20 mg tablet 20 mg PO DAILY 02/09/23 [History Last Taken Unknown] lisinopril 20 mg-hydrochlorothiazide 12.5 mg tablet 2 tab PO DAILY 02/09/23 [History Last Taken Unknown] Allergy/AdvReac Type Severity Reaction Status Date / Time No Known Allergies Allergy Verified 02/09/23 18:42 Social History Smoking Status: Never smoker ROS ROS ED ROS Narrative Constitutional: No fever, no chills. Mild fatigue. HEENT: No sore throat. No neck pain. No loss of vision. No rhinorrhea. Cardiovascular: Occasional chest pain. No palpitations. Bilateral pedal edema-significantly improved. Respiratory: No cough, dyspnea on exertion and shortness of breath. Abdominal: No abdominal pain. No nausea. No vomiting. Genitourinary: No dysuria. No hematuria. Musculoskeletal: No myalgias. No arthralgias. Neurologic: No headaches. No dizziness. No lightheadedness. Skin: No rash. No change in color. Psychiatric: No depression. No anxiety. EXAM Physical Exam Narrative Exam Narrative: Afebrile. Vital signs noted. HEENT: Normocephalic. Atraumatic. PERRL, EOMI. Neck soft and supple. No pointtenderness or step off. Positive subconjunctival pallor. No central cyanosis. Cardiovascular: Intermittent tachycardia just above 100 bpm. No murmurs, rubs, or gallops appreciated. Respiratory: No tachypnea. Lungs clear to auscultation bilaterally. Gastrointestinal: Abdomen soft, nontender, with normoactive bowel sounds. No rebound or guarding. Chaperoned rectal examination reveals no evidence of driedblood, stool normal color. Neurological: Awake. Alert. Nonfocal, nonlateralizing. Skin: No rash. Normal color. Positive pallor. Musculoskeletal: No pedal edema. Full range of motion extremities. Const Vital Signs: 02/09/23 18:44 02/09/23 20:03 02/09/23 20:03 Temperature 98.6 F Temperature Source Temporal Pulse Rate 106 H 101 H Respiratory Rate 18 24 H Respiratory Effort Respiratory Depth Respiratory Pattern Blood Pressure 131/71 H 144/81 H Blood Pressure Mean 91 102 Pulse Ox 99 98 98 Oxygen Delivery Method Room Air Room Air Room Air 02/09/23 20:03 02/09/23 20:03 02/09/23 20:07 Temperature Temperature Source Pulse Rate Respiratory Rate 17 Respiratory Effort Normal Normal Respiratory Depth Normal Respiratory Pattern Normal Blood Pressure Blood Pressure Mean Pulse Ox 99 Oxygen Delivery Method Room Air Room Air MDM MDM MDM Narrative Medical decision making narrative: Comprehensive work-up was pursued. In the differential diagnosis is ACS, I havelow suspicion for pulmonary embolism, and anemia is also in the differential. His EKG was obtained and interpreted by myself independently as normal sinus rhythm at 98 bpm without ectopy or acute ST changes. No STEMI. I reviewed his laboratory work from today and his hemoglobin is low at 5.9. Digital rectal exam was performed, business account specialist, which showed normal color stool and is Hemoccult negative. Platelet count is elevated at 541 which may be more of an acute phasereactant. He has a normal BUN of 16 and a creatinine normal at 1.22. I have low suspicion for upper GI bleeding. However, he does have a low MCV at 66.9 consistent with microcytic anemia. He will be transfused after type and crossmatch. Additionally, I did add ferritin and TIBC. High-sensitivity troponin is normal at 6. Chest x-ray is currently pending. Given his profound anemia, I did discuss the patient with Dr. Arndt with hospitalist medicine for admission to the PCU. Currently, patient is in stable condition. History & Record Review Discussion w/independent historian: Patient and Family Additional record(s) reviewed:: Prior ED visit and Prior labs Lab Data Attestation: I reviewed the patient's lab results. Labs: Laboratory Results - last 24 hr 02/09/23 02/09/23 19:30 20:44 WBC 9.2 RBC 3.29 L Hgb 5.9 L* Hct 22.0 L MCV 66.9 L MCH 17.9 L MCHC 26.8 L RDW Std Deviation 45.1 H RDW Coeff of Jennifer 18.6 H Plt Count 541 H MPV 8.9 Immature Gran % (Auto) 0.500 Neut % (Auto) 74.3 H Lymph % (Auto) 16.7 L Dakota % (Auto) 6.3 Eos % (Auto) 1.9 Baso % (Auto) 0.3 Absolute Neuts (auto) 6.8 Absolute Lymphs (auto) 1.53 Nucleated RBC % 0.3 Diff Path Review May foll Platelet Estimate MOD INC RBC Morphology N CHROM Hypochromasia 1+ Anisocytosis 1+ Microcytosis 1+ Ovalocytes RARE Sodium 138 Potassium 3.8 Chloride 105 Carbon Dioxide 29.0 Anion Gap 4 L BUN 16 Creatinine 1.22 Estim Creat Clear Calc 66.48 Est GFR (MDRD) Af Amer 78 Est GFR (MDRD) Non-Af 64 BUN/Creatinine Ratio 13.1 Glucose 119 H Calcium 8.5 TIBC 350 Ferritin 5 L Troponin I High Sens 6 Crossmatch See Detail Discharge Plan Triage Chief Complaint: Shortness of Breath Other Complaint: Chest Pain ED Provider: Michael Herrera Dx/Rx/DC Orders Clinical Impression: Anemia requiring transfusions, MORENO (dyspnea on exertion), Generalized weakness Primary Care Provider: Lida Crenshaw What to do if you have Problems For any increased pain, shortness of breath, bleeding, nausea or vomiting, chestpain, or any unexpected problems, contact your Primary Care Provider. Call [employer] [facility] ([phone]) or report to the closest Emergency Room. Call 911 if necessary. 02/09/23 7765 <Electronically signed by Michael Herrera MD> Cosigner Signature (if applicable): CC: Dr. Lida Crenshaw MD ~ Signed [facility] Work Phone: 1(539) 724-423009-19-2023 Discharge summary Author Michael Herrera [facility] February 09, 2023 10:11pm Note Date/Time February 09, 2023 10:11pm [facility] Medical Records Department [address] [place] [address] Emergency Department Summary 02/09/23 MR#: [id number] Acct: [id number] Name: JUSTIN CARDONA Rep #:[id number] : 1960 62 From: Michael Herrera MD PCP: Dr. Lida Crenshaw MD Status:ADM IN Location: ICU ICU08-1 [facility] History of Present Illness Chief Complaint: Shortness of Breath Narrative Narrative: 62-year-old male past medical history of hypertension and hypercholesterolemia presents with generalized weakness, shortness of breath, and dyspnea on exertionthat he has had for the last 2 to 3 weeks. 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 Over the last few days, his swelling has resolved. He becomes very short of breath and has dyspnea on exertion, and low energy. He was seen by his primary care provider, Dr. Crenshaw, who sent him in for further evaluation. He denies any chest pain, but may have occasional pressure. No DVT or PE risk factors. He denies any black stool or any bleeding diathesis. PFSH PFS Medical History Hypercholesteremia Hypertension Home Medications amlodipine 5 mg tablet 5 mg PO QHS 02/09/23 [History Last Taken Unknown] atorvastatin 20 mg tablet 20 mg PO DAILY 02/09/23 [History Last Taken Unknown] lisinopril 20 mg-hydrochlorothiazide 12.5 mg tablet 2 tab PO DAILY 02/09/23 [History Last Taken Unknown] Allergy/AdvReac Type Severity Reaction Status Date / Time No Known Allergies Allergy Verified 02/09/23 18:42 Social History Smoking Status: Never smoker ROS ROS ED ROS Narrative Constitutional: No fever, no chills. Mild fatigue. HEENT: No sore throat. No neck pain. No loss of vision. No rhinorrhea. Cardiovascular: Occasional chest pain. No palpitations. Bilateral pedal edema-significantly improved. Respiratory: No cough, dyspnea on exertion and shortness of breath. Abdominal: No abdominal pain. No nausea. No vomiting. Genitourinary: No dysuria. No hematuria. Musculoskeletal: No myalgias. No arthralgias. Neurologic: No headaches. No dizziness. No lightheadedness. Skin: No rash. No change in color. Psychiatric: No depression. No anxiety. EXAM Physical Exam Narrative Exam Narrative: Afebrile. Vital signs noted. HEENT: Normocephalic. Atraumatic. PERRL, EOMI. Neck soft and supple. No pointtenderness or step off. Positive subconjunctival pallor. No central cyanosis. Cardiovascular: Intermittent tachycardia just above 100 bpm. No murmurs, rubs, or gallops appreciated. Respiratory: No tachypnea. Lungs clear to auscultation bilaterally. Gastrointestinal: Abdomen soft, nontender, with normoactive bowel sounds. No rebound or guarding. Chaperoned rectal examination reveals no evidence of driedblood, stool normal color. Neurological: Awake. Alert. Nonfocal, nonlateralizing. Skin: No rash. Normal color. Positive pallor. Musculoskeletal: No pedal edema. Full range of motion extremities. Const Vital Signs: 02/09/23 18:44 02/09/23 20:03 02/09/23 20:03 Temperature 98.6 F Temperature Source Temporal Pulse Rate 106 H 101 H Respiratory Rate 18 24 H Respiratory Effort Respiratory Depth Respiratory Pattern Blood Pressure 131/71 H 144/81 H Blood Pressure Mean 91 102 Pulse Ox 99 98 98 Oxygen Delivery Method Room Air Room Air Room Air 02/09/23 20:03 02/09/23 20:03 02/09/23 20:07 Temperature Temperature Source Pulse Rate Respiratory Rate 17 Respiratory Effort Normal Normal Respiratory Depth Normal Respiratory Pattern Normal Blood Pressure Blood Pressure Mean Pulse Ox 99 Oxygen Delivery Method Room Air Room Air MDM MDM MDM Narrative Medical decision making narrative: Comprehensive work-up was pursued. In the differential diagnosis is ACS, I havelow suspicion for pulmonary embolism, and anemia is also in the differential. His EKG was obtained and interpreted by myself independently as normal sinus rhythm at 98 bpm without ectopy or acute ST changes. No STEMI. I reviewed his laboratory work from today and his hemoglobin is low at 5.9. Digital rectal exam was performed, business account specialist, which showed normal color stool and is Hemoccult negative. Platelet count is elevated at 541 which may be more of an acute phasereactant. He has a normal BUN of 16 and a creatinine normal at 1.22. I have low suspicion for upper GI bleeding. However, he does have a low MCV at 66.9 consistent with microcytic anemia. He will be transfused after type and crossmatch. Additionally, I did add ferritin and TIBC. High-sensitivity troponin is normal at 6. Chest x-ray is currently pending. Given his profound anemia, I did discuss the patient with Dr. Arndt with hospitalist medicine for admission to the PCU. Currently, patient is in stable condition. History & Record Review Discussion w/independent historian: Patient and Family Additional record(s) reviewed:: Prior ED visit and Prior labs Lab Data Attestation: I reviewed the patient's lab results. Labs: Laboratory Results - last 24 hr 02/09/23 02/09/23 19:30 20:44 WBC 9.2 RBC 3.29 L Hgb 5.9 L* Hct 22.0 L MCV 66.9 L MCH 17.9 L MCHC 26.8 L RDW Std Deviation 45.1 H RDW Coeff of Jennifer 18.6 H Plt Count 541 H MPV 8.9 Immature Gran % (Auto) 0.500 Neut % (Auto) 74.3 H Lymph % (Auto) 16.7 L [place] % (Auto) 6.3 Eos % (Auto) 1.9 Baso % (Auto) 0.3 Absolute Neuts (auto) 6.8 Absolute Lymphs (auto) 1.53 Nucleated RBC % 0.3 Diff Path Review May foll Platelet Estimate MOD INC RBC Morphology N CHROM Hypochromasia 1+ Anisocytosis 1+ Microcytosis 1+ Ovalocytes RARE Sodium 138 Potassium 3.8 Chloride 105 Carbon Dioxide 29.0 Anion Gap 4 L BUN 16 Creatinine 1.22 Estim Creat Clear Calc 66.48 Est GFR (MDRD) Af Amer 78 Est GFR (MDRD) Non-Af 64 BUN/Creatinine Ratio 13.1 Glucose 119 H Calcium 8.5 TIBC 350 Ferritin 5 L Troponin I High Sens 6 Crossmatch See Detail Discharge Plan Triage Chief Complaint: Shortness of Breath Other Complaint: Chest Pain ED Provider: Michael Herrera Dx/Rx/DC Orders Clinical Impression: Anemia requiring transfusions, MORENO (dyspnea on exertion), Generalized weakness Primary Care Provider: Lida Crenshaw What to do if you have Problems For any increased pain, shortness of breath, bleeding, nausea or vomiting, chestpain, or any unexpected problems, contact your Primary Care Provider. Call [facility] ([phone]) or report to the closest Emergency Room. Call 911 if necessary. 02/09/232210 <Electronically signed by Michael Herrera MD> Cosigner Signature (if applicable): CC: Dr. Lida Crenshaw MD ~ Signed [facility] Work Phone: Discharge summary Author Merrick Cruz [facility] February 13, 2023 11:00am Note Date/Time February 13, 2023 11:00am [facility] Medical Records Department [address] [place] [id number] Discharge Summary 02/13/23 1057 MR#: [id number] Acct: [id number] Name: JUSTIN CARDONA Rep #:[id number] : 1960 62 From: Merrick Puente PCP: Dr. Lida Crenshaw MD Status:ADM IN Location: [place] [address] Providers Date of Admission: 02/09/23 Primary Care Physician: Dr. Lida Crenshaw MD Consultations 02/09/23 23:38 Consult: Gastroenterology Routine Consulting Provider: [facility] Reason for Consult: Severe acute anemia, rule out GI bleed EMERGENT Consult: No MD Notified: Yes Date Notified: 02/09/23 Time Notified: 21:40 Method of Notification: Text Reason For Visit: SEVERE ANEMIA Diagnosis Discharge Diagnosis (1) Anemia requiring transfusions: Status: Acute Code(s): D64.9 - Anemia, unspecified Plan 62-year-old gentleman was admitted with generalized weakness, dyspnea on exertion shortness of breath for 2 to 3 weeks along with bilateral leg swelling understanding. On lab test his hemoglobin was found 5.9 g/22%. 1. Acute anemia associated with iron deficiency-patient is admitted in PCU. Patient required 3 units of PRBC transfusion. Posttransfusion hemoglobin 7.9. Stool for occult blood was negative. Peripheral smear shows polychromasia, hypochromasia anisocytosis and microcytosis suggestive of iron deficiency anemia. CBC shows low MCV MCHC and elevated RDW. Platelet count 443,000 also history of iron versus anemia. Patient had EGD reported normal esophagus multiple gastric polyps resected and retrieved. Normal D2. Colonoscopy reported diverticula in the rectosigmoid colon and sigmoid colon. Large lipoma at hepatic flexure.No specimen collected. Overall patient feeling better after PRBC transfusion 02/12: H&H 7.9/27%. Platelet count 443,000. Plan for repeat EGD today. Discussed with GI 02/13: EGD repeat done on 02/12 reported multiple gastric polyps resected and retrieved. Normal esophagus and D2. No aspirin or anti-inflammatories and for 4 weeks after polyp removal. Protonix 40 mg p.o. twice daily for 12 weeks and sucralfate 1 g p.o. twice daily for 4 weeks. Follow-up in GI clinic. #2 Acute on chronic iron deficiency anemia-possible due to chronic GI blood loss. Haptoglobin 236 normal.\ 02/13: Report hemoglobin 7.5/26. Platelet count 408. Prescription given for ferrous sulfate and ascorbic acid. Follow with PCP. #3 morbid obesity-complicates care, medical course, recovery, and prognosis #4 essential hypertension-patient is on lisinopril, hydrochlorothiazide and amlodipine monitor BP. Currently these medications are on hold. #5 hyperlipidemia-patient is on a statin, this is being held at this time and hecan resume the medication when he goes home Discharge medication reconciliation done. Discharge follow-up instructions completed. Discharge process discussed with the patient and all questions wereanswered to patient's satisfaction. Total time spent, exact 35 minutes on discharge meds reconciliation, examination, coordination of care with nurses and ancillary staff, review of imaging and blood test and discussion with the patient on follow-up instructions. Laboratory Results 02/13/23 08:02: WBC 8.6, RBC 3.52 L, Hgb 7.5 L, Hct 26.0 L, MCV 73.9 L, MCH 21.3L, MCHC 28.8 L, RDW Std Deviation 62.5 H, RDW Coeff of Jennifer 24.2 H, Plt Count 408, MPV 9.3, Immature Gran % (Auto) 0.500, Neut % (Auto) 69.8, Lymph % (Auto) 16.4 L, [place] % (Auto) 8.8, Eos % (Auto) 4.2, Baso % (Auto) 0.3, Absolute Neuts (auto) 6.0, Absolute Lymphs (auto) 1.41, Nucleated RBC % 0, Differential CommentSCANNED, Polychromasia RARE, Anisocytosis 2+, Microcytosis 1+, Macrocytosis 1+, Ovalocytes RARE, Sodium 138, Potassium 3.7, Chloride 108 H, Carbon Dioxide 26.0,Anion Gap 4 L, BUN 10, Creatinine 1.04, Estim Creat Clear Calc 77.99, Est GFR (MDRD) Af Amer 93, Est GFR (MDRD) Non-Af 77, BUN/Creatinine Ratio 9.6 L, [id number], Calcium 8.4 L Medications at Discharge Home Medications amlodipine 5 mg tablet 5 mg PO QHS 02/09/23 atorvastatin 20 mg tablet 20 mg PO DAILY 02/09/23 lisinopril 20 mg-hydrochlorothiazide 12.5 mg tablet 2 tab PO DAILY 02/09/23 ascorbic acid (vitamin C) 500 mg tablet 500 mg PO BID #60 tabs 02/13/23 ferrous sulfate 325 mg (65 mg iron) tablet (FeroSul) 325 mg PO DAILY 30 days #30tabs 02/13/23 pantoprazole 40 mg tablet,delayed release (Protonix) 40 mg PO BID #60 tabs 02/13/23 sucralfate 1 gram tablet (Carafate) 1 g PO BID 4 weeks #56 tabs 02/13/23 Physical Exam Narrative No abdominal pain acute issues after repeat EGD on 02/12. Breath. Feels better. Physical exam General: Alert, Oriented x3, Cooperative, morbid obesity BMI 42.7 kg/m?. HEENT: Pale conjunctive a. Atraumatic, PERRLA, EOMI, Normocephalic Oral: Oral mucosa dry. No Gingival or Mucosal Lesions/ Ulcerations Neck: Supple, No JVD, Negative Carotid Bruits Lungs: Air entry diminished in bilateral lung bases. No crepitation/rhonchi Cardiovascular: Regular rate, Regular Rhythm, Normal S1, Normal S2, No murmurs Abdomen: Bowel Sounds Present, Soft, Non Tender, Non-Distended : No renal angle tenderness. No suprapubic tenderness. Extremities: No edema, Capillary Refill Less than 3 Seconds Skin: No rashes, No breakdown Musculoskeletal: No Tenderness to Palpation of Joints or Extremities Neurological: Cranial nerves II-XII grossly intact, DTR 2+/4. No acute focal neurological deficit. Psych/Mental Status: Normal Affect, Appropriate. Weight / BMI Weight Weight: 297 lb 6.457 oz Body Mass Index (BMI) 42.6 ABG / Lab / Microbiology Data 02/13/23 08:02 02/13/23 08:02 Laboratory: Laboratory Results - last 24 hr 02/13/23 08:02: WBC 8.6, RBC 3.52 L, Hgb 7.5 L, Hct 26.0 L, MCV 73.9 L, MCH 21.3L, MCHC 28.8 L, RDW Std Deviation 62.5 H, RDW Coeff of Jennifer 24.2 H, Plt Count 408, MPV 9.3, Immature Gran % (Auto) 0.500, Neut % (Auto) 69.8, Lymph % (Auto) 16.4 L, [place] % (Auto) 8.8, Eos % (Auto) 4.2, Baso % (Auto) 0.3, Absolute Neuts (auto) 6.0, Absolute Lymphs (auto) 1.41, Nucleated RBC % 0, Differential CommentSCANNED, Polychromasia RARE, Anisocytosis 2+, Microcytosis 1+, Macrocytosis 1+, Ovalocytes RARE, Sodium 138, Potassium 3.7, Chloride 108 H, Carbon Dioxide 26.0,Anion Gap 4 L, BUN 10, Creatinine 1.04, Estim Creat Clear Calc 77.99, Est GFR (MDRD) Af Amer 93, Est GFR (MDRD) Non-Af 77, BUN/Creatinine Ratio 9.6 L, [id number], Calcium 8.4 L Microbiology: Microbiology 02/09/23 21:15 Stool Stool Occult Blood (TAYLOR) - Final 02/09/23 20:10 Nasal Secretion SARS-CoV-2 Antigen (Rapid) - Final D/C Instructions Discharge Diet: No restrictions Weight Bearing Status: Weight bearing as tolerated Call your doctor if you observe: Fever of 101 or Higher, Coldness, Increased Pain, Numbness or Tingling, Change in Color, Inability to urinate, Inability to have a bowel movement, Shortness of breath, Dizziness, Fainting spells, Swellingin the ankles, Chest pain, Prolonged hiccupping, Increased palpitations (irregular heartbeat) and Calf discomfort When: IN 2 WEEKS Meaningful Use Info Meaningful Use Diagnoses (Choose all that apply): None applicable Discharge Plan Admission Admit Date/Time: 02/09/23 21:35 Attending Provider: Merrick Cruz Primary Care Provider: Lida Crenshaw Consulting Providers: Shawn Arndt; Domo Lee Discharge Orders/Prescriptions Prescriptions: New pantoprazole [Protonix] 40 mg tablet,delayed release (DR/EC) 40 mg PO BID Qty: 60 2RF Rx Instructions: advised TWICE DAILY FOR 12 weeks and then once daily sucralfate [Carafate] 1 gram tablet 1 g PO BID 28 Days Qty: 56 0RF ferrous sulfate [FeroSul] 325 mg (65 mg iron) tablet 325 mg PO DAILY 30 Days Qty: 30 2RF ascorbic acid (vitamin C) 500 mg tablet 500 mg PO BID Qty: 60 2RF Continued lisinopril-hydrochlorothiazide 20-12.5 mg tablet 2 tab PO DAILY atorvastatin 20 mg tablet 20 mg PO DAILY amlodipine 5 mg tablet 5 mg PO QHS Referrals / Follow Up: Lida Crenshaw MD [Primary Care Provider] - Nigel,DO Olayinka [Med Staff - Active Staff] - Within 1 Month Disposition Disposition (needs filled in before D/C Order can be placed): Home, Self Care Charges/Coding Visit Charges Inpatient E&M: 44952 Disch Hosp >30min 02/13/23 1100 <Electronically signed by Merrick Cruz MD> Cosigner Signature (if applicable): CC: Dr. Lida Crenshaw MD; Dr. Merrick Cruz MD~ Signed [facility] Work Phone: Evaluation noteNo assessment information available [facility] Work Phone: Evaluation note* Diagnosis Onset Date Resolution Status Anemia requiring transfusions acute MORENO (dyspnea on exertion) ac [place] Generalized weakness acute [facility] Work Phone: Evaluation note* Diagnosis Onset Date Resolution Status MORENO (dyspnea on exertion) re solved Generalized weakness resolve d [facility] Work Phone: Evaluation note* Diagnosis Onset Date Resolution Status GI bleed acute [facility] Work Phone: Reason for referral (narrative)No reason for referral information [facility] Work Phone: Chief Complaint and Reason for Visit Chief Complaint SEVERE ANEMIA Reason for Visit Anemia requiring tra nsfusions MORENO (dyspnea on exertion) Generalized weakness Chief Complaint SEVERE ANEMIA SEVERE ANEMIA SEVERE ANEMIA SEVERE ANEMIA SEVERE ANEMIA SEVERE ANEMIA Reason for Visit Anemia requiring tra nsfusions MORENO (dyspnea on exertion) Generalized weakness Chief Complaint SEVERE ANEMIA SEVERE ANEMIA SEVERE ANEMIA SEVERE ANEMIA SEVERE ANEMIA SEVERE ANEMIA Reason for Visit MORENO (dyspnea on exer tion) Generalized weakness Chief Complaint H FU Reason for Visit GI bleed Chief Complaint 6 MO FU Reason for Visit GI bleed Chief Complaint Admit Date PRE-OP September 22, 2024 8:32am Chief Complaint Admit Date PRE-OP September 22, 2024 8:32am PRE-OP September 22, 2024 8:49am Advance Directives No Advanced Directives Records Found Advance Directive Response Recorded Date/ Time Living Will No February 09, 2023 8:03pm Power of Lunchroom Food Service Supervisor No January 8:03pm Advance Directive Response Recorded Date/ Time Living Will No February 09, 2023 10:58pm Power of Lunchroom Food Service Supervisor No January 10:58pm Advance Directive Response Recorded Date/ Time Living Will No February 09, 2023 9:58pm Power of Lunchroom Food Service Supervisor No January 9:58pm Summary Purpose Family History No Family History Records Found Additional Source Comments Care Teams (unrecognized sec tion and content) Team Status: Active Member Role Status Dates Dr. Lida Crenshaw MD Family Provider Active Dr. Lida Crenshaw MD Primary Care Provider Active Team Status: Inactive Member Role Status Dates Dr. Lida Crenshaw MD Primary Care Provider, Attendin g Provider Active Team Status: Active Member Role Status Dates Dr. Lida Crenshaw MD Primary Care Provider Active Michael Herrera MD Emergency Provider Active Dr. Shawn Arndt DO Admit Provider, Attending Provider Active Team Status: Active Member Role Status Dates Dr. Lida Crenshaw MD Primary Care Provider Active Michael Herrera MD Emergency Provider Active Dr. Shawn Arndt , DO Admit Provider, Other Pro vider Active Dr. Domo Lee DO Attending Provider, Other Pro vider Active Team Status: Active Member Role Status Dates Dr. Lida Crenshaw MD Primary Care Provider Active Michael Herrera MD Emergency Provider Active Dr. Shawn Arndt , DO Admit Provider, Other Pro vider Active Dr. Merrick Cruz MD Other Provider Active Dr. Domo Lee , DO Other Provider Active Dr. Olayinka Manning DO Attending Provider Active Team Status: Active Member Role Status Dates Dr. Lida Crenshaw MD Primary Care Provider Active Dr. Olayinka Manning DO Attending Provider Active Team Status: Active Member Role Status Dates Dr. Lida Crneshaw MD Primary Care Provider Active Michael Herrera MD Emergency Provider Active Dr. Shawn Arndt , DO Admit Provider, Other Pro vider Active Dr. Merrick Cruz MD Attending Provider, Other Provi cecy Active Dr. Domo Lee , Other Provider Active Team Status: Inactive Member Role Status Dates Dr. Lida Crenshaw MD Primary Care Provider Active Michael Herrera MD Emergency Provider Active Dr. Shawn Arndt , DO Admit Provider, Other Pro vider Active Dr. Merrick Cruz MD Attending Provider Active Dr. Domo Lee , Other Provider Active Team Status: Inactive Member Role Status Dates Dr. Lida Crenshaw MD Primary Care Provider Active Dr. Aashish Arcos MD Attending Provider Active Team Status: Active Member Role Status Dates Dr. Lida Crenshaw MD Primary Care Provider Active Michael Herrera MD Emergency Provider Active Dr. Shawn Arndt , DO Admit Provider, Other Pro vider Active Dr. Merrick Cruz MD Referring Provider, Other Provi cecy Active Dr. Domo Lee , Other Provider Active Dr. Olayinka Manning DO Attending Provider Active Team Status: Active Member Role Status Dates Dr. Lida Crenshaw MD Primary Care Provider Active Dr. Olayinka Manning DO Attending Provider Active Dr. Merrick Cruz MD Referring Provider Active Team Status: Inactive Member Role Status Dates Dr. Lida Crenshaw MD Primary Care Provider, Referrin g Provider Active Dr. Olayinka Manning DO Attending Provider Active Team Status: Active Member Role Status Dates Dr. Lida Crenshaw MD Primary Care Provider Active Team Status: Inactive Member Role Status Dates Dr. Lida Crenshaw MD Primary Care Provider Active Start: September 22, 2024 End: September 22, 2024 Dr. Brandon Miller DO Attending Provider Active Start: September 22, 2024 End: September 22, 2024 Dr. Brandon Miller DO Referring Provider Active Start: September 22, 2024 End: September 22, 2024 Team Status: Active Member Role Status Dates Dr. Lida Crenshaw MD Primary Care Provider Active Start: September 22, 2024 End: September 22, 2024 Dr. Faisal Miller MD Attending Provider Active S tart: September 22, 2024 End: September 22, 2024 Dr. Brandon Miller DO Referring Provider Active Start: September 22, 2024 End: September 22, 2024 Goals (unrecognized section and content) Goals may be documented in a n alternate sectionGoals may be documented in an alternate sectionGoals may be documented in an alternate sectionGoals may be documented in an alternate sectionGoals may be documented in an alternate sectionGoals may be documented in an alternate sectionGoals may be documented in an alternate sectionGoals may be documented in an alternate sectionGoals may be documented in an alternate sectionGoals may be documented in an alternate section (unrecognized sect ion and content) No Status Records Found INFORMATION SOURCE (unrecogn ized section and content) DATE CREATED AUTHOR 10/05/2024 [facility] FOR RECORDS PERTAINING TO PATIENTS WHO ARE OR HAVE BEEN ENROLLED IN A CHEMICAL DEPENDENCY/SUBSTANCEABUSE PROGRAM, SOME INFORMATION MAY BE OMITTED. This clinical summary was aggregated from multiple sources. Caution should be exercised in using it in the provision of clinical care. This summary normalizes information from multiple sources, and as a consequence, information in this document may materially change the coding, format and clinical context of patient data. In addition, data may be omitted in some cases. CLINICAL DECISIONS SHOULD BE BASED ON THE PRIMARY CLINICAL RECORDS. [facility] [employer] [facility]. provides no warranty or guarantee of the accuracy or completeness of information in this document.
== END | disposition home or self-care (01) ==
LOC: LAB 09:37
PROVIDERS: PCP Family Medicine; Referring Provider Student in an Organized Health Care Education/Training Program; Visit Provider Student in an Organized Health Care Education/Training Program
DX: Z01.818 Encounter for other preprocedural examination (principal)
CPT/HCPCS: 36415; 80048; 85025

== ENCOUNTER → 2025-01-17 | Outpatient (CLI) | payer OTHER, SELFPAY ==
[2025-01-17 15:17] LABS: Hematocrit 39.9 % (40-54); Hemoglobin 14.1 g/dL (13.0-16.5); Mean Corp Hgb Conc 35.3 g/dL (32-36); Mean Corpuscular Volume 89.7 fL (80-94); Mean Platelet Vol. 10.2 fl (6.2-12.0); Platelet Count 387 K/mm3 (150-450); RBC Distribution Width CV 11.9 % (11.6-14.6); RBC Distribution Width SD 38.6 fl (35.1-43.9); Red Blood Count 4.45 M/mm3 (4.6-6.2); White Blood Count 10.6 K/mm3 (4.4-11.0)
[2025-01-17 18:14] LABS: Cholesterol 142 mg/dL (<=200); Low Density Lipoprotein Calc. 47 mg/dL; PSA,Total - Annual Screen 0.56 ng/mL (0.02-4.00); Triglycerides 206 mg/dL; Very Low Density Lipoprotein 41 mg/dL (5-40); cholesterol:hdl ratio screen 2.66
== END | disposition home or self-care (01) ==
LOC: MFPLAB 13:54
PROVIDERS: PCP Family Medicine; Referring Provider Family Medicine; Visit Provider Family Medicine
DX: D64.9 Anemia, unspecified (principal); I10 Essential (primary) hypertension; Z13.1 Encounter for screening for diabetes mellitus; Z13.220 Encounter for screening for lipoid disorders; Z12.5 Encounter for screening for malignant neoplasm of prostate
CPT/HCPCS: 36415; 80061; 83036; 84153; 85027; G0103

== ENCOUNTER → 2025-01-18 | Outpatient (CLI) | payer OTHER, SELFPAY ==
[2025-01-18 19:35] LABS: Creatinine, Urine (random) 91.90 mg/dL (39.00-259.00); Microalbumin,Random Urine < 12.0 mg/L (<20 mg/L)
== END | disposition home or self-care (01) ==
LOC: LABSPEC 15:23
PROVIDERS: PCP Family Medicine; Referring Provider Family Medicine; Visit Provider Family Medicine
DX: D64.9 Anemia, unspecified (principal); I10 Essential (primary) hypertension; Z12.5 Encounter for screening for malignant neoplasm of prostate; Z13.1 Encounter for screening for diabetes mellitus; Z13.220 Encounter for screening for lipoid disorders
CPT/HCPCS: 82043; 82570